=== PATIENT | female | born 1955 | race American Indian/Alaskan Native ===

== ENCOUNTER 2019-09-17 09:42 | Inpatient (IN) ==
[2019-09-17] MEDS ORDERED: IOPAMIDOL 100 ML BOTTLE IV ONE (09:43)
[2019-09-17] MEDS ORDERED: ONDANSETRON 4 MG/2 ML VIAL IV ONE (10:37)
--- NOTE | 2019-09-17 10:41 | Emergency Department Note ---
Abdominal Pain HPI - General Chief Complaint: Abdominal Pain Stated Complaint: abd pain x 5 weeks, h-pylori Time Seen by Provider: 09/17/19 09:57 Source: patient, family Mode of arrival: wheelchair Limitations: no limitations - History of Present Illness HPI Narrative: 63-year-old female with a 5-week history of lower quadrant abdominal pain worst on the right. She is on peritoneal dialysis daily by Dr. Black. She is having some nausea and diarrhea but no vomiting. Denies fever or shortness of breath. She is on antibiotics for H. pylori. She still has her appendix - Related Data Home Medications Medication Instructions Recorded Confirmed amlodipine 10 mg tablet 5 mg PO HS tab 09/30/14 09/17/19 citalopram 10 mg tablet 20 mg PO HS tab 09/30/14 09/17/19 cyanocobalamin (vitamin B-12) 2,500 mcg SUBLINGUAL QDAY tab 09/30/14 09/17/19 2,500 mcg sublingual tablet ferrous sulfate 325 mg (65 mg 325 mg PO BID 02/03/16 09/17/19 iron) tablet Amoxicillin 500 mg PO DAILY 09/08/19 09/17/19 Anastrozole [Arimidex] 1 mg PO DAILY 09/08/19 09/17/19 Cholecalciferol (Vitamin D3) [D3 2,000 unit PO DAILY 09/08/19 09/17/19 Dots] Clarithromycin 250 mg PO .COMPLEX 09/08/19 09/17/19 Docusate Sodium [Doc-Q-Lace] 100 mg PO BID 09/08/19 09/17/19 Magnesium Oxide 420 mg PO DAILY 09/08/19 09/17/19 [place]-3 Acid Ethyl Esters [Triklo] 2 cap PO BID 09/08/19 09/17/19 Sucroferric Oxyhydroxide [Velphoro] 500 mg PO DAILY 09/08/19 09/17/19 Vit B Cmplx 3/FA/Vit C/Biotin 1 each PO DAILY 09/08/19 09/17/19 [Nephro-Meme Rx Tablet] Aspirin [Ecotrin] 81 mg PO DAILY 09/17/19 09/17/19 Calcitriol [Rocaltrol] 0.25 mcg PO 3XW 09/17/19 09/17/19 Ergocalciferol (Vitamin D2) 50,000 unit PO Q2W 09/17/19 09/17/19 [Ergocalciferol] Protein Supplement [Prosource] 275 gm PO DAILY 09/17/19 09/17/19 Rosuvastatin Calcium [Crestor] 5 mg PO HS 09/17/19 09/17/19 glipiZIDE [Glipizide ER] 5 mg PO QDAY 09/17/19 09/17/19 Previous Rx's Medication Instructions Recorded PhosLo 667 mg capsule 667 mg PO .tid with meals #90 cap 03/23/16 NS HYDROcodone/APAP 5/325MG [[place] 1 tab PO Q4HP PRN #15 tab 11/08/16 5-325Mg] furosemide 40 mg tablet 80 mg PO QAM #60 tab 06/27/18 losartan 100 mg tablet 100 mg PO DAILY #30 tab 06/27/18 Allergies Allergy/AdvReac Type Severity Reaction Status Date / Time lisinopril AdvReac Mild Cough Verified 09/17/19 09:44 Review of Systems All systems ED: reviewed and negative except as stated. Abdominal Pain PMH - Past Medical History Attestation: Yes: The following information was validated with the patient. [facility] Narrative: Family History Father Alcohol abuse Diabetes mellitus Mother Alcohol abuse Osteoarthritis Grandmother Alcohol abuse Grandfather Diabetes mellitus Unknown Alcohol abuse Osteoarthritis Medical History (Last Updated 01/20/18 @ 09:17 by Linnette Castaneda) Chronic hypertension (Chronic) Diabetes mellitus (Chronic) Peritoneal dialysis catheter in situ (Chronic) Chronic kidney disease (Chronic) 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) Breast cancer (Chronic) Hyperparathyroidism due to renal insufficiency (Chronic) Anemia (Chronic) Chronic kidney disease (CKD), stage V (Chronic) Secondary hyperparathyroidism of renal origin (Chronic 06/13/13) Proteinuria (Acute) Peripheral neuropathy (Acute) Obesity (Acute) Heart murmur, systolic (Acute) Metabolic acidosis (Chronic) Hypertensive renal disease (Chronic 06/13/13) Hypertension, essential (Acute) Hyperlipemia (Acute) Hyperkalemia (Chronic 06/13/13) Heart murmur (Acute) Diabetes mellitus, type II (Chronic) 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) Degenerative joint disease (Acute) CKD (chronic kidney disease), stage IV (Chronic) CKD (chronic kidney disease), stage II (Acute) Carpal tunnel syndrome (Acute) Chronic back pain (Acute) Anemia, iron deficiency (Chronic 06/13/13) Anemia in chronic kidney disease (CKD) (Acute) Full dentures (Chronic) Past Surgical History (Last Updated 01/20/18 @ 09:15 by Linnette Castaneda) H/O colonoscopy (Acute 08/14/07) History of cholecystectomy (Acute) Status post left breast lumpectomy (Chronic) Medical history: Reports: DM, hyperlipidemia, hypertension, renal disease - Social History Smoking status: Former smoker Physical Exam No acute distress resting. Alert and oriented able to answer questions appropriately. Normocephalic atraumatic. Conjunctive are clear sclerae white nonicteric. No nasal discharge or congestion. Oropharynx is pink and moist. Neck is supple without lymphadenopathy thyromegaly carotid bruit. Heart is regular rate and rhythm no murmur appreciated. Lungs are clear to auscultation bilaterally without wheezes rales rhonchi or respiratory distress. Abdomen is s oft mildly tender in bilateral lower quadrants with point tenderness noted. Right seems to be worse than left. No peritoneal signs or guarding. She has a dialysis catheter in place in her left lower quadrant. No pedal edema. +2 pulse. Limitations: no limitations Course Vital Signs Temperature 97.0 F 09/17/19 09:42 Pulse Rate 75 09/17/19 09:42 Respiratory Rate 18 09/17/19 09:42 Blood Pressure 104/53 09/17/19 09:42 Pulse Oximetry (%) 97 09/17/19 09:42 Temperature 97.0 F 09/17/19 09:42 Pulse Rate 79 09/17/19 13:24 Respiratory Rate 13 09/17/19 13:24 Blood Pressure 104/55 09/17/19 13:16 Pulse Oximetry (%) 94 09/17/19 13:24 Abdominal Pain - Lab Data Lab results reviewed: Yes I reviewed the patient's lab results. Result diagrams: 09/17/19 10:15 09/17/19 10:15 Lab Results 09/17/19 09/17/19 09/17/19 Range/Units 10:15 10:15 10:15 WBC 10.1 (4.50-11.00) K/mcL RBC 2.73 L (3.59-5.38) M/mcL Hgb 8.5 L (11.2-15.7) g/dL Hct 26.1 L (34.1-44.9) % POC Hct (36.0-48.0) % MCV 95.6 (80.0-100.0) fL MCH 31.1 (26.0-34.0) pg MCHC 32.6 (31.0-36.0) g/dL RDW 12.7 (11.5-14.5) % Plt Count 293 (140-440) K/mcL MPV 10.5 H (7.4-10.4) fL Gran % 88.7 H (38.0-78.0) % Lymph % (Auto) 4.4 L (15.5-49.0) % [place] % (Auto) 5.4 (1.0-12.0) % Eos % (Auto) 1.3 (0.0-7.0) % Baso % (Auto) 0.2 (0.0-2.0) % Gran # 8.98 H (1.80-8.00) K/mcL Lymph # (Auto) 0.45 L (1.50-4.80) K/mcL [place] # (Auto) 0.55 (0.10-0.90) K/mcL Eos # (Auto) 0.13 (0.00-0.70) K/mcL Baso # (Auto) 0.02 (0.00-0.30) K/mcL VBG Lactic Acid 1.7 (0.5-2.0) mmol/L POC Sodium (133-145) mmol/L Sodium 131 L (133-145) mmol/L POC Potassium (3.3-5.1) mmol/L Potassium 3.9 (3.3-5.1) mmol/L POC Chloride (96-108) mmol/L Chloride 93 L (96-108) mmol/L Carbon Dioxide 28 (22-30) mmol/L POC Total CO2 (22-30) mmol/L Anion Gap 10.0 (8-16) POC BUN (8-23) mg/dl BUN 50 H (8-23) mg/dl Creatinine 7.4 H* (0.6-1.1) mg/dl POC Creatinine (0.6-1.1) mg/dl GFR Calculation 5 Glucose 189 H (70-105) mg/dL POC Glucose (70-105) mg/dL Calcium 7.6 L (8.6-10.4) mg/dl POC WB Ioniz Calcium (1.16-1.32) mmol/L Total Bilirubin 0.2 (0.0-1.0) mg/dL AST 12 (0-37) U/l ALT 11 (0-40) U/l Alkaline Phosphatase 128 H (39-117) U/L Total Protein 5.0 L (5.9-8.4) gm/dL Albumin 1.5 L (3.2-5.2) gm/dL Globulin 3.5 (2.2-3.7) gm/dL Albumin/Globulin Ratio 0.4 L (1.0-2.3) Lipase (7-60) U/L Urine Color Urine Appearance Urine pH (5.0-9.0) Ur Specific [place] (1.000-1.035) Urine Protein (NEG) mg/dL Urine Glucose (UA) (NEG) mg/dL Urine Ketones (NEG) mg/dL Urine Occult Blood (<0.03) mg/dL Urine Nitrate (NEG) Urine Bilirubin (NEG) mg/dL Urine Urobilinogen (NEG) mg/dL Ur Leukocyte Esterase (NEG) /uL Urine RBC (0-1) /hpf Urine WBC (0-4) /hpf Ur Squamous Epith Cells (0-4) /hpf Ur Transition Epith Cell (0-2) /hpf Urine Bacteria (0) /hpf Urine Mucus (0) /hpf Ur Culture Indicated? 09/17/19 09/17/19 Range/Units 10:15 10:42 WBC (4.50-11.00) K/mcL RBC (3.59-5.38) M/mcL Hgb (11.2-15.7) g/dL Hct (34.1-44.9) % POC Hct 27.0 L (36.0-48.0) % MCV (80.0-100.0) fL MCH (26.0-34.0) pg MCHC (31.0-36.0) g/dL RDW (11.5-14.5) % Plt Count (140-440) K/mcL MPV (7.4-10.4) fL Gran % (38.0-78.0) % Lymph % (Auto) (15.5-49.0) % [place] % (Auto) (1.0-12.0) % Eos % (Auto) (0.0-7.0) % Baso % (Auto) (0.0-2.0) % Gran # (1.80-8.00) K/mcL Lymph # (Auto) (1.50-4.80) K/mcL [place] # (Auto) (0.10-0.90) K/mcL Eos # (Auto) (0.00-0.70) K/mcL Baso # (Auto) (0.00-0.30) K/mcL VBG Lactic Acid (0.5-2.0) mmol/L POC Sodium 129 L (133-145) mmol/L Sodium (133-145) mmol/L POC Potassium 3.9 (3.3-5.1) mmol/L Potassium (3.3-5.1) mmol/L POC Chloride 91 L (96-108) mmol/L Chloride (96-108) mmol/L Carbon Dioxide (22-30) mmol/L POC Total CO2 30 (22-30) mmol/L Anion Gap (8-16) POC BUN 44 H (8-23) mg/dl BUN (8-23) mg/dl Creatinine (0.6-1.1) mg/dl POC Creatinine 8.2 H* (0.6-1.1) mg/dl GFR Calculation Glucose (70-105) mg/dL POC Glucose 178 H (70-105) mg/dL Calcium (8.6-10.4) mg/dl POC WB Ioniz Calcium 1.01 L (1.16-1.32) mmol/L Total Bilirubin (0.0-1.0) mg/dL AST (0-37) U/l ALT (0-40) U/l Alkaline Phosphatase (39-117) U/L Total Protein (5.9-8.4) gm/dL Albumin (3.2-5.2) gm/dL Globulin (2.2-3.7) gm/dL Albumin/Globulin Ratio (1.0-2.3) Lipase < 7 L (7-60) U/L Urine Color Yellow Urine Appearance Hazy Urine pH 5.0 (5.0-9.0) Ur Specific [place] 1.019 (1.000-1.035) Urine Protein 30 A (NEG) mg/dL Urine Glucose (UA) Negative (NEG) mg/dL Urine Ketones Neg (NEG) mg/dL Urine Occult Blood Neg (<0.03) mg/dL Urine Nitrate Neg (NEG) Urine Bilirubin Neg (NEG) mg/dL Urine Urobilinogen Neg (NEG) mg/dL Ur Leukocyte Esterase 25 A (NEG) /uL Urine RBC 1 (0-1) /hpf Urine WBC 6 H (0-4) /hpf Ur Squamous Epith Cells 5 H (0-4) /hpf Ur Transition Epith Cell 1 (0-2) /hpf Urine Bacteria 0 (0) /hpf Urine Mucus Few (0) /hpf Ur Culture Indicated? No - Radiology Data Radiology results reviewed: Yes I reviewed the patient's radiology results. Multiple chronic findings noted on CT scan of the abdomen and pelvis. No cause is identified for her belly pain Disposition Pt seen by [facility]URNER/PA only: No Clinical Impression: Peritonitis, Chronic kidney disease (CKD), stage V Summary: Ordered laboratory work-up and CT scan Zofran and Dilaudid. Differential diagnosis includes appendicitis diverticulitis bowel obstruction follow-up partial mass peritonitis and other concerning pathologies. Right now her blood pressure is low normal and she is not febrile-she does not meet Sirs or septic criteria at this point but we will monitor Briefly discussed with Dr. Black as well. She sent over her dialysis nurse to get a sample of peritoneal fluid for rule out peritonitis Peritoneal fluid appeared infected. Laboratory is equivocal. We will go ahead and start vancomycin and Zosyn IV. CT scan does not show evidence of surgical belly Discussed case with Dr. Black again. We will bring the patient in for parenteral antibiotics through the catheter. Discussed case also with our hospitalist, Dr. Capone. He agreed to accept the patient Disposition: Xfer As Inpt ([facility]) Condition: Fair Referrals: Berto Kearney ARNP [Primary Care Provider] -
[2019-09-17] MEDS: HYDROmorphone 0.5 MG/0.5 ML SYRINGE IV PRN ×2 (10:59→13:47)
[2019-09-17 11:05] LABS: POC Blood Urea Nitrogen 44 mg/dl (8-23); POC CO2 30 mmol/L (22-30); POC Calcium, Ionized 1.01 mmol/L (1.16-1.32); POC Chloride 91 mmol/L (96-108); POC Creatinine 8.2 mg/dl (0.6-1.1); POC Glucose, Random 178 mg/dL (70-105); POC Potassium 3.9 mmol/L (3.3-5.1); POC Sodium 129 mmol/L (133-145)
[2019-09-17 11:22] LABS: Basophils # (Auto) 0.02 K/mcL (0.00-0.30); Basophils % (Auto) 0.2 % (0.0-2.0); Eosinophils # (Auto) 0.13 K/mcL (0.00-0.70); Eosinophils % (Auto) 1.3 % (0.0-7.0); Granulocytes % (Auto) 88.7 % (38.0-78.0); Hematocrit 26.1 % (34.1-44.9); Hemoglobin 8.5 g/dL (11.2-15.7); Lymphocytes # (Auto) 0.45 K/mcL (1.50-4.80); Lymphocytes % (Auto) 4.4 % (15.5-49.0); Mean Cell Volume 95.6 fL (80.0-100.0); Mean Corpuscular HGB Conc 32.6 g/dL (31.0-36.0); Mean Platelet Volume 10.5 fL (7.4-10.4); Monocytes # (Auto) 0.55 K/mcL (0.10-0.90); Monocytes % (Auto) 5.4 % (1.0-12.0); Platelet Count 293 K/mcL (140-440); RBC 2.73 M/mcL (3.59-5.38); Red Cell Distribution Width 12.7 % (11.5-14.5); WBC 10.1 K/mcL (4.50-11.00)
[2019-09-17 11:46] LABS: ALT/SGPT 11 U/l (0-40); AST/SGOT 12 U/l (0-37); Alkaline Phosphatase 128 U/L (39-117); Bilirubin,Total 0.2 mg/dL (0.0-1.0); Calcium 7.6 mg/dl (8.6-10.4); Carbon Dioxide 28 mmol/L (22-30); Glucose 189 mg/dL (70-105)
[2019-09-17 11:54] LABS: Albumin 1.5 gm/dL (3.2-5.2); Albumin/Globulin Ratio 0.4 (1.0-2.3); Blood Urea Nitrogen 50 mg/dl (8-23); Chloride 93 mmol/L (96-108); Globulin 3.5 gm/dL (2.2-3.7); Glomerular Filtration Rate 5
[2019-09-17] MEDS ORDERED: VANCOMYCIN 1,000 MG in 0.9 % SODIUM CHLORIDE 250 ML IV ONE (12:06)
[2019-09-17] MEDS ORDERED: PIPERACILLIN SODIUM/TAZOBACTAM 3.375 GM in DEXTROSE 5% IN WATER 50 ML IV ONE (12:06)
[2019-09-17 12:22] LABS: Appearance,Urine HAZY; Bacteria,Urine 0 /hpf (0); Bilirubin,Urine NEG (NEG); Color,Urine YELLOW; Culture Indicated,Urine NO; Glucose,Urine (UA) NEGATIVE (NEG); Ketones,Urine NEG (NEG); Leukocyte Esterase,Urine 25 /uL (NEG); Mucus,Urine FEW /hpf (0); Nitrate,Urine NEG (NEG); Protein,Urine 30 mg/dL (NEG); Specific Gravity,Urine 1.019 (1.000-1.035); Urine Blood NEG mg/dL (<0.03); Urine RBC 1 /hpf (0-1); Urine Squamous Epithelial Cell 5 /hpf (0-4); Urine Transitional Epi Cells 1 /hpf (0-2); Urine WBC 6 /hpf (0-4); Urobilinogen,Urine NEG (NEG)
--- NOTE | 2019-09-17 13:04 | Cat Scan Report ---
INDICATION: lowere quadrant ab pain both side COMPARISON: Previous CT scans dated 08/28/2019, 11/08/2016 TECHNIQUE: Axial images were obtained through the abdomen and pelvis. Sagittally and coronally reformatted images. 80 mL Isovue 370 injected intravenously. Oral contrast material was given FINDINGS: Lung bases:No pulmonary parenchymal densities in both lung bases. Appearance is most consistent with atelectasis. No significant pleural effusion. There is cardiomegaly. There is severe coronary artery calcification. No pericardial effusion. Liver:Micronodular appearance to the liver suggests possible cirrhosis. Clinical correlation necessary. No focal hepatic mass. Gallbladder, bilary:Surgical clips in gallbladder fossa. Common bile duct measures 7 mm. No intrahepatic bile duct dilatation Spleen:Spleen measures 13 cm maximally. No focal intrasplenic abnormality. Normal enhancement of the splenic and portal veins Pancreas:Negative. No pancreatic mass. No peripancreatic abnormality Adrenal glands:Negative Kidneys, ureters, bladder: Kidneys are atrophic. Patient has history of renal failure and is on peritoneal dialysis. No solid or cystic renal mass. There is mild renal parenchymal enhancement. No hydronephrosis. There is no hydroureter. No ureteral stone No bladder calculi or detectable mass Gastrointestinal:No detectable colonic mass. There is no diverticulitis. Small bowel is negative. No mechanical small bowel obstruction. Appendix: The appendix is negative Vascular:Mild atherosclerotic calcification of the abdominal aorta. No abdominal aortic aneurysm. There is calcification of the internal iliac arteries bilaterally. There is calcification of the superior and inferior mesenteric arteries as well as the celiac trunk. Lymphatic:No retroperitoneal or mesenteric adenopathy Mesentery, peritoneum: Peritoneal dialysis catheter within the pelvis. There is moderate peritoneal fluid. There is minimal pneumoperitoneum. There is no intra-abdominal abscess. There is nonspecific infiltration of mesenteric fat. No mesenteric mass normality. Reproductive:Uterus is anteflexed and there is myometrial calcification. No adnexal mass Musculoskeletal:No lumbar compression fractures. Sacrum and pelvis are negative. No hip fracture. There is injection of the subcutaneous fat consistent with edema. No focal subcutaneous mass. Probable previous left breast lumpectomy IMPRESSION: 1. Bilateral lower lobe pulmonary parenchymal density consistent with atelectasis 2. Cardiomegaly and severe coronary artery disease 3. Bilateral renal atrophy 4. Hemodialysis catheter within the pelvis. Moderate free intraperitoneal fluid. Minimal pneumoperitoneum 5. Nonspecific injection of mesenteric fat is probably related to free fluid 6. Nonspecific subcutaneous edema 7. Findings suspicious for cirrhosis with a micronodular appearance of the liver. No focal mass 8. Previous cholecystectomy. Borderline dilatation of the common bile duct 9. Atherosclerotic disease The exam was performed using radiation dose optimization techniques including, but not limited to, automated exposure control, adjustment of the mA and/or kV according to patient size and use of iterative reconstruction technique. Interpreted and Authenticated by: Abdiel Sanchez 09/17/19
--- NOTE | 2019-09-17 14:24 | Internal Med History&Physical ---
Medical - H&P: [facility] Patient information: Note initiated : 09/17/19 at 2:22 pm Service Date, if different from initiated Date: [] Patient: Hedy Pizarro a 63 y/o F admitted on for abd pain x 5 weeks, h-pylori. Chief Complaint: [] Chief complaint: Abdominal pain History of present illness: Ms. Pizarro is a 63 year old F female with a past history of ESRD on peritoneal dialysis/DM type II/HTN who lives at [facility] and follows up with nephrology clinic at [facility]. Patient over the last 5 weeks has noticed persistent and progressive abdominal pain diffuse in nature without associated fever or chills. Pain is worsened during peritoneal dialysis. She presents to the ER for evaluation. Initial work-up was consistent with bacterial peritonitis. Nephrology was consulted and patient was requested to be admitted for management of peritonitis. Antibiotics were initiated after cultures were drawn Subsequently hospitalist service was consulted for admission At the time of my evaluation patient is alert and oriented. She was able to answer most of the questions. She denies shaking chills/sick contact/lightheadedness, dizziness. She further denies lower extremity swelling, nausea, vomiting, diarrhea. Review of systems A 10 point review of system was performed and is negative except for ones cussed above Medical - H&P: [facility] Medical history: Anemia in chronic kidney disease (CKD) (Acute) Her Hb is 10.7 which is above threshold for aranesp therapy Her Fe sat is low at 13% ct iron supplement pt does need colonoscopy, would request her PCP to do GI referral for insurance coverage will monitor CKD (chronic kidney disease), stage II (Acute) Carpal tunnel syndrome (Acute) Chronic back pain (Acute) Degenerative joint disease (Acute) Heart murmur (Acute) Heart murmur, systolic (Acute) Hyperlipemia (Acute) Hypertension, essential (Acute) Obesity (Acute) Peripheral neuropathy (Acute) proteinu Proteinuria (Acute) Has microalb/Cr ratio of ~ 1450 mg/g - hx of DMT2, HTN, obesity w/u negative for ESTEPHANIE, complements are wnl and serum/urine CARINA are negative is on losartan which has a renoprotective effect. monitor 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) Anemia (Chronic) Anemia, iron deficiency (Chronic 06/13/13) CKD (chronic kidney disease), stage IV (Chronic) Her sCr on most recent labs is 3.8 from 3.2 which equals to eGFR of 12.9 ml/min per MDRD equation. There is a ? of volume depletion , despite of increased water intake in the setting of yard work and high temps. Her risk factors include HTN, DMT2 which are well controlled at this time. Pt will monitor BPs, BSs. Pt will increase her fluid intake and have labs repeated in 10 days If renal function does not improve, pt will be referred for AVF placement. Chronic kidney disease (CKD), stage V (Chronic) most recent s..creatinine is 3.5 from 3.7 which equals to egfr of 13ml/min per MDRD equation, stable for now, BUN is upto 76, no uremic symptoms s.creatinine has trended up from 3.2 to 3.5 to 4.3-3.5-4.0-3.7-3.5 renal function fluctuating between 3.5-4.0 no uremic symptoms will try and get medicare, if this happens has a potential living donor for pre emptive transplant if not then she will need to get started on HD, not interested on home modality Will follow Diabetes mellitus, type II (Chronic) States BS very much controlled. Care deferred to PCP. ct current medications Hyperkalemia (Chronic 06/13/13) Hyperparathyroidism due to renal insufficiency (Chronic) Hypertensive renal disease (Chronic 06/13/13) BP at goal ct losartan and amlodipine and diuretics and hydralazine follow low sodium diet Metabolic acidosis (Chronic) Secondary hyperparathyroidism of renal origin (Chronic 06/13/13) PTH at 105 a little supressed, not on calcitriol Phos level at 4.6 near goal calcium at goal PTH was 123 when checked last mth ct phoslo and ergocalciferol Surgical History H/O colonoscopy (Acute 08/14/07) 08/14/07- Parent History of cholecystectomy (Acute) Family History Father Alcohol abuse Diabetes mellitus Mother Alcohol abuse Osteoarthritis Grandmother Alcohol abuse Grandfather Diabetes mellitus Unknown Alcohol abuse Uncle Osteoarthritis Uncle Social History smoking status: Former smoker alcohol intake frequency: does not drink Medical - H&P: Meds Home Medications Medication Instructions Recorded Confirmed Type amlodipine 10 mg tablet 5 mg PO HS tab 09/30/14 09/17/19 History citalopram 10 mg tablet 20 mg PO HS tab 09/30/14 09/17/19 History cyanocobalamin (vitamin B-12) 2,500 mcg SUBLINGUAL QDAY tab 09/30/14 09/17/19 History 2,500 mcg sublingual tablet ferrous sulfate 325 mg (65 mg 325 mg PO BID 02/03/16 09/17/19 History iron) tablet PhosLo 667 mg capsule 667 mg PO .tid with meals #90 cap 03/23/16 09/17/19 Rx NS HYDROcodone/APAP 5/325MG [[place] 1 tab PO Q4HP PRN #15 tab 11/08/16 09/17/19 Rx 5-325Mg] furosemide 40 mg tablet 80 mg PO QAM #60 tab 06/27/18 09/17/19 Rx losartan 100 mg tablet 100 mg PO DAILY #30 tab 06/27/18 09/17/19 Rx Amoxicillin 500 mg PO DAILY 09/08/19 09/17/19 History Anastrozole [Arimidex] 1 mg PO DAILY 09/08/19 09/17/19 History Cholecalciferol (Vitamin D3) [D3 2,000 unit PO DAILY 09/08/19 09/17/19 History Dots] Clarithromycin 250 mg PO .COMPLEX 09/08/19 09/17/19 History Docusate Sodium [Doc-Q-Lace] 100 mg PO BID 09/08/19 09/17/19 History Magnesium Oxide 420 mg PO DAILY 09/08/19 09/17/19 History [place]-3 Acid Ethyl Esters [Triklo] 2 cap PO BID 09/08/19 09/17/19 History Sucroferric Oxyhydroxide [Velphoro] 500 mg PO DAILY 09/08/19 09/17/19 History Vit B Cmplx 3/FA/Vit C/Biotin 1 each PO DAILY 09/08/19 09/17/19 History [Nephro-Meme Rx Tablet] Aspirin [Ecotrin] 81 mg PO DAILY 09/17/19 09/17/19 History Calcitriol [Rocaltrol] 0.25 mcg PO 3XW 09/17/19 09/17/19 History Ergocalciferol (Vitamin D2) 50,000 unit PO Q2W 09/17/19 09/17/19 History [Ergocalciferol] Protein Supplement [Prosource] 275 gm PO DAILY 09/17/19 09/17/19 History Rosuvastatin Calcium [Crestor] 5 mg PO HS 09/17/19 09/17/19 History glipiZIDE [Glipizide ER] 5 mg PO QDAY 09/17/19 09/17/19 History Allergies Allergy/AdvReac Type Severity Reaction Status Date / Time lisinopril AdvReac Mild Cough Verified 09/17/19 09:44 Medical - H&P: Exam - Constitutional Vitals: Temp Pulse Resp BP Pulse Ox 97.0 F 76 17 102/63 100 09/17/19 09:42 09/17/19 14:18 09/17/19 14:18 09/17/19 14:17 09/17/19 14:18 General appearance: obese Exam: Alert and oriented Head normocephalic Oral cavity dry No ear nose discharge Neck no lymphadenopathy S1-S2 regular rhythm Diffusely tender abdomen, PD catheter Nonlabored breathing No lower extremity lymphedema cyanosis or clubbing Skin no suspicious lesion Psych alert cooperative Neuro nonfocal Medical - H&P: Reslt - Labs CBC & Chem 7: 09/17/19 10:15 09/17/19 10:15 Labs: Short CBC 09/17/19 Range/Units 10:15 WBC 10.1 (4.50-11.00) K/mcL Hgb 8.5 L (11.2-15.7) g/dL Hct 26.1 L (34.1-44.9) % Plt Count 293 (140-440) K/mcL BMP 09/17/19 10:15 Sodium 131 L Potassium 3.9 Chloride 93 L Carbon Dioxide 28 BUN 50 H Creatinine 7.4 H* Glucose 189 H Calcium 7.6 L Liver Function 09/17/19 Range/Units 10:15 Total Bilirubin 0.2 (0.0-1.0) mg/dL AST 12 (0-37) U/l ALT 11 (0-40) U/l Alkaline Phosphatase 128 H (39-117) U/L Albumin 1.5 L (3.2-5.2) gm/dL Urine 09/17/19 Range/Units 10:42 Urine Color Yellow Urine Appearance Hazy Urine pH 5.0 (5.0-9.0) Ur Specific [place] 1.019 (1.000-1.035) Urine Protein 30 A (NEG) mg/dL Urine Glucose (UA) Negative (NEG) mg/dL Medical - H&P: A/P (1) Peritonitis Current visit: Yes Status: Acute * Acute peritonitis-likely secondary to peritoneal dialysis related contamination. Antibiotics per nephrology. * End-stage renal disease on dialysis per nephrology * History of HTN restart antihypertensives CCB/ARB * History of DM type II continue sliding-scale insulin/CC diet * Hyperlipidemia continue statin * Anxiety disorder continue citalopram * Anemia of chronic disease stable continue monitor * Full code * Prophylaxis heparin Plan * Intraperitoneal antibiotics * Inpatient admission * Nephrology consult * Pre-existing medical condition management as above * PT OT/nutrition support
[2019-09-17] MEDS ORDERED: MELATONIN 3 MG TABLET PO PRN (15:56)
[2019-09-17] MEDS ORDERED: HYDROcodone/APAP 5/325MG TABLET PO PRN (15:56)
[2019-09-17] MEDS ORDERED: ONDANSETRON 4 MG ODT TABLET SL PRN (15:56)
[2019-09-17] MEDS ORDERED: ONDANSETRON 4 MG/2 ML VIAL IV PRN (15:56)
[2019-09-17] MEDS ORDERED: DEXTROSE 31 GM ORAL.SUSP PO PRN (15:56)
[2019-09-17] MEDS ORDERED: guaiFENesin/CODEINE 10 ML UDC PO PRN (15:56)
[2019-09-17] MEDS ORDERED: POLYETHYLENE GLYCOL 3350 17 GM PACKET PO PRN (15:56)
[2019-09-17] MEDS ORDERED: CALCITRIOL 0.25 MCG CAPSULE PO SCH (15:56)
[2019-09-17] MEDS ORDERED: DEXTROSE 50% 50 ML VIAL IV PRN (15:56)
[2019-09-17] MEDS ORDERED: BISACODYL 10 MG SUPP.RECT PR PRN (15:56)
[2019-09-17] MEDS: INSULIN LISPRO 1 UNIT/0.01 ML UNIT SQ SCH ×2 (17:32→21:18)
[2019-09-17] MEDS: CALCIUM ACETATE 667 MG CAPSULE PO SCH (17:34)
--- NOTE | 2019-09-17 18:26 | Nephrology History & Physical ---
History of Present Illness Patient information: Note initiated : 09/17/19 at 6:25 pm Service Date, if different from initiated Date: [] Patient: Hedy Pizarro a 63 y/o F admitted on 09/17/19 for abd pain x 5 weeks, Chief Complaint: [Abdominal pain] Chief complaint: Abd discomfort and coco;ure to thrive in a NIPD patirent. HPI: Ms. Pizarro is a 63 year old Female with end-stage renal disease of unclear origin but probably hypertension or diabetes. She has been on peritoneal dialysis since 2017 and has never had an episode of peritonitis. She runs a chronically low albumin but in the past month he reports abd disconfort and pain with no leukocytosis, noted to have worsening nutritional labs, in particular an albumin now below 2, low grade fever with neg KUB and previously clear CAPD fluid. Now with increased pain, mild peritoneal signs called to PD clinic and admitted for putative peritonitis. There is no report of any breaking dialysis technique, nothing to suggest a perforated viscus, interestingly the patient cannot recall when exactly her peritoneal fluid became cloudy. After culture sample obtained, she received 1 gm Vanco and 3.375 gm Pip/Uri x [address] Abd/Pelvis: Lung bases:No pulmonary parenchymal densities in both lung bases. Appearance is most consistent with atelectasis. No significant pleural effusion. There is cardiomegaly. There is severe coronary artery calcification. No pericardial effusion. Liver:Micronodular appearance to the liver suggests possible cirrhosis. Clinical correlation necessary. No focal hepatic mass. Gallbladder, bilary:Surgical clips in gallbladder fossa. Common bile duct measures 7 mm. No intrahepatic bile duct dilatation Spleen:Spleen measures 13 cm maximally. No focal intrasplenic abnormality. Normal enhancement of the splenic and portal veins Pancreas:Negative. No pancreatic mass. No peripancreatic abnormality Adrenal glands:Negative Kidneys, ureters, bladder: Kidneys are atrophic. Patient has history of renal failure and is on peritoneal dialysis. No solid or cystic renal mass. There is mild renal parenchymal enhancement. No hydronephrosis. There is no hydroureter. No ureteral stone No bladder calculi or detectable mass Gastrointestinal:No detectable colonic mass. There is no diverticulitis. Small bowel is negative. No mechanical small bowel obstruction. Appendix: The appendix is negative Vascular:Mild atherosclerotic calcification of the abdominal aorta. No abdominal aortic aneurysm. There is calcification of the internal iliac arteries bilaterally. There is calcification of the superior and inferior mesenteric arteries as well as the celiac trunk. Lymphatic:No retroperitoneal or mesenteric adenopathy Mesentery, peritoneum: Peritoneal dialysis catheter within the pelvis. There is moderate peritoneal fluid. There is minimal pneumoperitoneum. There is no intra-abdominal abscess. There is nonspecific infiltration of mesenteric fat. No mesenteric mass normality. Reproductive:Uterus is anteflexed and there is myometrial calcification. No adnexal mass Musculoskeletal:No lumbar compression fractures. Sacrum and pelvis are negative. No hip fracture. There is injection of the subcutaneous fat consistent with edema. No focal subcutaneous mass. Probable previous left breast lumpectomy IMPRESSION: 1. Bilateral lower lobe pulmonary parenchymal density consistent with atelectasis 2. Cardiomegaly and severe coronary artery disease 3. Bilateral renal atrophy 4. Hemodialysis catheter within the pelvis. Moderate free intraperitoneal fluid. Minimal pneumoperitoneum 5. Nonspecific injection of mesenteric fat is probably related to free fluid 6. Nonspecific subcutaneous edema 7. Findings suspicious for cirrhosis with a micronodular appearance of the liver. No focal mass 8. Previous cholecystectomy. Borderline dilatation of the common bile duct 9. Atherosclerotic disease This patient has clinical and biochemical evidence of peritonitis and will be treated as culture-negative peritonitis for the time being as there is no bacteria seen on the initial Gram stain. Culture and sensitivity of the PD fluid is pending. There is no radiographic evidence of appendicitis, she is surgically absent gallbladder, but an interesting finding is a rather generously sized spleen and micronodular changes in her liver suggesting new or previously unrecognized hepatic cirrhosis. That said the differential diagnosis for peritonitis includes spontaneous bacterial peritonitis, peritoneal dialysis related peritonitis, and perhaps peptic ulcer disease with a posterior penetrating ulcer and peritonitis. The patient will need a liver spleen scan to look for colloid shift pad support to the idea of unrecognized or cryptogenic cirrhosis. This would nicely explain the dramatic drop in albumin as its not only a problem of increased peritoneal leak but also reduced production of albumin from ongoing cirrhosis that were the cause. Review of Systems Gastrointestinal: abdominal pain, dyspepsia, vomiting, other (Pain with PD exchanges as of late, Outflow > inflow) Past History Past medical history: Medical History (Last Updated 01/20/18 @ 09:17 by Linnette Castaneda) Chronic hypertension (Chronic) Diabetes mellitus (Chronic) Peritoneal dialysis catheter in situ (Chronic) Chronic kidney disease (Chronic) 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) Breast cancer (Chronic) Hyperparathyroidism due to renal insufficiency (Chronic) Anemia (Chronic) Chronic kidney disease (CKD), stage V (Chronic) Secondary hyperparathyroidism of renal origin (Chronic 06/13/13) Proteinuria (Acute) Peripheral neuropathy (Acute) Obesity (Acute) Heart murmur, systolic (Acute) Metabolic acidosis (Chronic) Hypertensive renal disease (Chronic 06/13/13) Hypertension, essential (Acute) Hyperlipemia (Acute) Hyperkalemia (Chronic 06/13/13) Heart murmur (Acute) Diabetes mellitus, type II (Chronic) 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) Degenerative joint disease (Acute) CKD (chronic kidney disease), stage IV (Chronic) CKD (chronic kidney disease), stage II (Acute) Carpal tunnel syndrome (Acute) Chronic back pain (Acute) Anemia, iron deficiency (Chronic 06/13/13) Anemia in chronic kidney disease (CKD) (Acute) Full dentures (Chronic) Past Surgical History (Last Updated 01/20/18 @ 09:15 by Linnette Castaneda) H/O colonoscopy (Acute 08/14/07) History of cholecystectomy (Acute) Status post left breast lumpectomy (Chronic) Medical history: Reports: DM, hyperlipidemia, hypertension, renal disease - Social History Smoking status: Former smoker Medications and Allergies Home Medications Medication Instructions Recorded Confirmed Type amlodipine 10 mg tablet 5 mg PO HS tab 09/30/14 09/17/19 History citalopram 10 mg tablet 20 mg PO HS tab 09/30/14 09/17/19 History cyanocobalamin (vitamin B-12) 2,500 mcg SUBLINGUAL QDAY tab 09/30/14 09/17/19 History 2,500 mcg sublingual tablet ferrous sulfate 325 mg (65 mg 325 mg PO 2-3XW 02/03/16 09/17/19 History iron) tablet PhosLo 667 mg capsule 667 mg PO .tid with meals #90 cap 03/23/16 09/17/19 Rx NS furosemide 40 mg tablet 80 mg PO QAM #60 tab 06/27/18 09/17/19 Rx losartan 100 mg tablet 100 mg PO DAILY #30 tab 06/27/18 09/17/19 Rx Amoxicillin 500 mg PO DAILY 09/08/19 09/17/19 History Anastrozole [Arimidex] 1 mg PO DAILY 09/08/19 09/17/19 History Cholecalciferol (Vitamin D3) [D3 2,000 unit PO DAILY 09/08/19 09/17/19 History Dots] Clarithromycin 250 mg PO .COMPLEX 09/08/19 09/17/19 History Docusate Sodium [Doc-Q-Lace] 100 mg PO BID 09/08/19 09/17/19 History Magnesium Oxide 420 mg PO DAILY 09/08/19 09/17/19 History Winter-3 Acid Ethyl Esters [Triklo] 2 cap PO BID 09/08/19 09/17/19 History Sucroferric Oxyhydroxide [Velphoro] 500 mg PO DAILY 09/08/19 09/17/19 History Vit B Cmplx 3/FA/Vit C/Biotin 1 each PO DAILY 09/08/19 09/17/19 History [Nephro-Meme Rx Tablet] Calcitriol [Rocaltrol] 0.25 mcg PO 3XW 09/17/19 09/17/19 History Ergocalciferol (Vitamin D2) 50,000 unit PO Q2W 09/17/19 09/17/19 History [Ergocalciferol] Protein Supplement [Prosource] 275 gm PO DAILY 09/17/19 09/17/19 History Rosuvastatin Calcium [Crestor] 5 mg PO HS 09/17/19 09/17/19 History glipiZIDE [Glipizide ER] 5 mg PO QDAY 09/17/19 09/17/19 History Allergies Allergy/AdvReac Type Severity Reaction Status Date / Time lisinopril AdvReac Mild Cough Verified 09/17/19 09:44 Exam - Vital Signs Vital signs: Temp Pulse Resp BP Pulse Ox 36.6 C 78 18 99/56 93 09/17/19 15:56 09/17/19 15:56 09/17/19 15:56 09/17/19 15:56 09/17/19 15:56 - General Appearance General appearance: well-nourished, appears started age, moderate distress, chronically ill EENT: ATNC, PERRL, mucous membranes moist Neck: no JVD, no thyromegaly, no carotid bruit, supple Respiratory: no kyphosis, clear Cardiology: mid-systolic murmur (2/6 CANDICE), no rub, no gallops, edema, regular rate, regular rhythm, normal S1, normal S2 Gastrointestinal: normoactive bowel sounds, tenderness, guarding (mild gaurding), obese, distended Integumentary: no rash, warm and dry Neurologic: no focal deficit, no asterixis, alert and oriented x3, CN 3-12 intact Musculoskeletal: no deformities, no erythema, no cyanosis, no clubbing Psychiatric: mood/affect appropriate Results - Lab Results 09/17/19 10:15 09/17/19 10:15 Most recent lab results Calcium 7.6 mg/dl (8.6-10.4) L 09/17/19 10:15 - Image Kidney/bladder ultrasound: other (CT done / see HPI) Assessment and Plan (1) Peritonitis This patient has clinical and biochemical evidence of peritonitis and will be treated as culture-negative peritonitis for the time being as there is no bacteria seen on the initial Gram stain. Culture and sensitivity of the PD fluid is pending. There is no radiographic evidence of appendicitis, she is surgically absent gallbladder, but an interesting finding is a rather generously sized spleen and micronodular changes in her liver suggesting new or previously unrecognized hepatic cirrhosis. That said the differential diagnosis for peritonitis includes spontaneous bacterial peritonitis, peritoneal dialysis related peritonitis, and perhaps peptic ulcer disease with a posterior penetrating ulcer and peritonitis. The patient will need a liver spleen scan to look for colloid shift pad support to the idea of unrecognized or cryptogenic cirrhosis. This would nicely explain the dramatic drop in albumin as its not only a problem of increased peritoneal leak but also reduced production of albumin from ongoing cirrhosis that were the cause. Status: Acute Priority: High Comment: 1. Serial peritoneal dialysis cell count and differential 2. Vancomycin and Pipracil and tazobactam pending culture return 3. Inflammatory biomarkers (2) ESRD (end stage renal disease) Peritoneal dialysis orders written Status: Acute Priority: Medium (3) Micronodular cirrhosis 1. Will need work-up including nuclear medicine liver spleen scan as an outpatient at [facility] 2. Serologies for nonalcohol related cirrhosis 3. Probably will require GI evaluation Status: Acute Priority: High Comment: Diagnosis based on CT findings
[2019-09-17] MEDS ORDERED: SODIUM CHLORIDE 0.9% IP ONE (19:00)
[2019-09-17] MEDS ORDERED: VANCOMYCIN IP ONE (19:00)
[2019-09-17] MEDS ORDERED: VANCOMYCIN IV ONE (20:27)
[2019-09-17] MEDS ORDERED: SODIUM CHLORIDE 0.9% IV ONE (20:27)
[2019-09-17] MEDS: HYDROCODONE/APAP 7.5/325MG TABLET PO PRN (20:40)
[2019-09-17] MEDS ORDERED: amLODIPine 10 MG TABLET PO SCH (21:00)
[2019-09-17] MEDS: FERROUS SULFATE 325 MG TABLET PO SCH (21:15)
[2019-09-17] MEDS: FISH OIL 1,000 MG CAPSULE PO SCH (21:15)
[2019-09-17] MEDS: CITALOPRAM 20 MG TABLET PO SCH (21:15)
[2019-09-17] MEDS: ATORVASTATIN 20 MG TABLET PO SCH (21:15)
[2019-09-17] MEDS: DOCUSATE SODIUM 100 MG CAPSULE PO SCH (21:15)
[2019-09-17] MEDS: SENNOSIDES/DOCUSATE SODIUM 1 TAB TABLET PO SCH (21:15)
[2019-09-17] MEDS: HEPARIN 5,000 UNIT/ML VIAL SQ SCH (21:17)
[2019-09-17] MEDS: 0.9 % SODIUM CHLORIDE 10 ML SYRINGE IV SCH (23:38)
[2019-09-18] MEDS: PIPERACILLIN SODIUM/TAZOBACTAM 2.25 GM in DEXTROSE 5% IN WATER 50 ML IV SCH ×3 (00:30→15:27)
[2019-09-18] MEDS: HYDROCODONE/APAP 7.5/325MG TABLET PO PRN ×4 (04:03→19:01)
[2019-09-18] MEDS: 0.9 % SODIUM CHLORIDE 10 ML SYRINGE IV SCH ×3 (05:43→21:15)
[2019-09-18 06:42] LABS: Hematocrit 26.5 % (34.1-44.9); Hemoglobin 8.4 g/dL (11.2-15.7); Mean Cell Volume 95.7 fL (80.0-100.0); Mean Corpuscular HGB Conc 31.7 g/dL (31.0-36.0); Mean Platelet Volume 10.5 fL (7.4-10.4); Platelet Count 326 K/mcL (140-440); RBC 2.77 M/mcL (3.59-5.38); Red Cell Distribution Width 12.8 % (11.5-14.5); WBC 12.2 K/mcL (4.50-11.00)
[2019-09-18] MEDS: ACETAMINOPHEN 325 MG TABLET PO PRN ×2 (06:43→23:13)
[2019-09-18 06:50] LABS: Retic Absolute 0.06 M/mcL (0.02-0.10)
[2019-09-18 06:52] LABS: INR 1.2 (0.9-1.1); Prothrombin Time 15.4 sec (11.9-14.5)
[2019-09-18 07:09] LABS: ALT/SGPT 12 U/l (0-40); AST/SGOT 17 U/l (0-37); Alkaline Phosphatase 143 U/L (39-117); Bilirubin,Direct < 0.2 mg/dL (0.0-0.3); Bilirubin,Total < 0.2 mg/dL (0.0-1.0); Blood Urea Nitrogen 46 mg/dl (8-23); Calcium 7.5 mg/dl (8.6-10.4); Carbon Dioxide 27 mmol/L (22-30); Glucose 296 mg/dL (70-105); Lactate Dehydrogenase 150 U/L (94-250); Phosphorous 4.5 mg/dL (2.7-4.5); Triglycerides 106 mg/dl (<150); Uric Acid 5.6 mg/dL (2.5-8.0)
[2019-09-18 07:11] LABS: Prealbumin 5.4 mg/dl (20-40)
[2019-09-18 07:18] LABS: Vancomycin,Random 13.2 ug/mL
[2019-09-18 07:20] LABS: C-Reactive Protein 33.3 mg/dl (0.0-0.8)
[2019-09-18 07:21] LABS: Ferritin 808.6 ng/ml (30-400)
[2019-09-18 07:40] LABS: Albumin 1.5 gm/dL (3.2-5.2); Albumin/Globulin Ratio 0.4 (1.0-2.3); Chloride 86 mmol/L (96-108); Globulin 3.5 gm/dL (2.2-3.7); Glomerular Filtration Rate 5
[2019-09-18 08:45] LABS: Band Neutrophils % 1 % (0-10); Eosinophils % (Manual) 1 % (0-7); Hypochromasia FEW (NONE SEEN); Lymphocytes % 3 % (15-49); Monocytes % (Manual) 4 % (1-12); Platelet Estimate NORMAL (NORMAL); RBC Morphology ABNORM (NORMAL); Segmented Neutrophils % 91 % (38-78)
[2019-09-18] MEDS: INSULIN LISPRO 1 UNIT/0.01 ML UNIT SQ SCH ×4 (08:45→21:14)
[2019-09-18] MEDS: VITAMIN D3 1,000 UNIT TABLET PO SCH (08:49)
[2019-09-18] MEDS: CALCIUM ACETATE 667 MG CAPSULE PO SCH ×3 (08:49→17:27)
[2019-09-18] MEDS: ASPIRIN 81 MG TAB.CHEW PO SCH (08:51)
[2019-09-18] MEDS: DOCUSATE SODIUM 100 MG CAPSULE PO SCH ×2 (08:51→21:14)
[2019-09-18] MEDS: FERROUS SULFATE 325 MG TABLET PO SCH ×2 (08:52→21:14)
[2019-09-18] MEDS: MULTIVIT,THER IRON,CA,FA & MIN 1 TABLET PO SCH (08:52)
[2019-09-18] MEDS: FISH OIL 1,000 MG CAPSULE PO SCH (08:52)
[2019-09-18] MEDS: VITAMIN B COMPLEX 1 CAPSULE PO SCH (08:52)
[2019-09-18] MEDS: MAGNESIUM OXIDE 400 MG TABLET PO SCH (08:53)
[2019-09-18 08:54] LABS: Erythrocyte Sedimentation Rate > 120 mm/hr (0-20)
[2019-09-18] MEDS: HEPARIN 5,000 UNIT/ML VIAL SQ SCH ×2 (08:55→21:14)
[2019-09-18] MEDS ORDERED: FUROSEMIDE 40 MG TABLET PO SCH (09:00)
[2019-09-18] MEDS ORDERED: CYANOCOBALAMIN 2500 MCG SUBLINGUAL SCH (09:00)
[2019-09-18] MEDS ORDERED: LOSARTAN 50 MG TABLET PO SCH (09:00)
--- NOTE | 2019-09-18 10:00 | Internal Med Progress Note ---
Medical - PN: Subj Patient information: Note initiated : 09/18/19 at 9:58 am Service Date, if different from initiated Date: [] Patient: Hedy Pizarro a 63 y/o F admitted on 09/17/19 for abd pain x 5 weeks, h-pylori. Chief Complaint: [] Interval history: Ms. Pizarro is a 63 year old F female with a past history of ESRD on peritoneal dialysis/DM type II/HTN who lives at [facility] and follows up with nephrology clinic at [facility]. Patient over the last 5 weeks has noticed persistent and progressive abdominal pain diffuse in nature without associated fever or chills. Pain is worsened during peritoneal dialysis. She presents to the ER for evaluation. Initial work-up was consistent with bacterial peritonitis. Nephrology was consulted and patient was requested to be admitted for management of peritonitis. Antibiotics were initiated after cultures were drawn Subsequently hospitalist service was consulted for admission At the time of my evaluation patient is alert and oriented. She was able to answer most of the questions. She denies shaking chills/sick contact/lighthea dedness, dizziness. She further denies lower extremity swelling, nausea, vomiting, diarrhea. 09/17-patient doing a lot better. Denies fever chills. Minimal abdominal pain at the catheter site. On intraperitoneal antibiotics per nephrology. White count 12.2. Sodium 126. No additional concerns per nursing staff - Constitutional Vitals: Vital Signs Temp Pulse Resp BP Pulse Ox 96.8 F L 72 18 92/49 96 09/18/19 08:00 09/18/19 08:00 09/18/19 08:00 09/18/19 08:00 09/18/19 08:00 Period Temp Pulse Resp BP Sys/Loaiza Pulse Ox Last 24 Hr 96.8 F-98.2 F 66-85 11-29 91-139/43-69 88-100 Intake and Output 09/17/19 09/18/19 09/18/19 21:59 05:59 13:59 Intake Total 250 350 Balance 250 350 Weight 188 lb 9.6 oz Intake & Output: Intake & Output 09/17/19 09/18/19 09/18/19 21:59 05:59 13:59 Intake Total 250 350 Balance 250 350 Weight 188 lb 9.6 oz Intake: IV 250 50 Zosyn 2.25 gm In Dextrose 5% in 50 Water 50 ml @ 100 mls/hr IV Q8H [facility] Rx#:[id number] Vancomycin 1,000 mg In Sodium 250 Chloride 0.9% 250 ml @ 250 mls/ hr IV ONCE ONE Rx#:[id number] Oral 300 Other: Meal Dinner Percent of Meal Consumed 75% Feeding Ability Independent # Voids 1 1 General appearance: no acute distress Exam: Alert oriented Nonlabored breathing Minimally tender abdomen No anxiety Medical - PN: Obj Da - Labs CBC & Chem 7: 09/18/19 05:20 09/18/19 05:20 Labs: Abnormal Lab Results 09/18/19 09/18/19 09/18/19 05:20 05:20 05:20 WBC RBC Hgb Hct POC Hct MPV Gran % Lymph % (Auto) Gran # Lymph # (Auto) Seg Neutrophils % Lymphocytes % RBC Morphology Hypochromasia ESR > 120 H Percent Retic 2.04 H PT 15.4 H INR 1.2 H APTT 43 H POC Sodium Sodium POC Chloride Chloride POC BUN BUN Creatinine POC Creatinine Glucose POC Glucose Calcium POC WB Ioniz Calcium Magnesium Iron 22 L TIBC 103 L Unsat Iron Binding 81 L Ferritin 808.6 H GGT Alkaline Phosphatase C-Reactive Protein 33.3 H Total Protein Albumin Albumin/Globulin Ratio Prealbumin 5.4 L Lipase Urine Protein Ur Leukocyte Esterase Urine WBC Ur Squamous Epith Cells 09/18/19 09/18/19 09/17/19 05:20 05:20 10:42 WBC 12.2 H RBC 2.77 L Hgb 8.4 L Hct 26.5 L POC Hct MPV 10.5 H Gran % Lymph % (Auto) Gran # Lymph # (Auto) Seg Neutrophils % 91 H Lymphocytes % 3 L RBC Morphology Abnorm A Hypochromasia Few A ESR Percent Retic PT INR APTT POC Sodium Sodium 126 L POC Chloride Chloride 86 L POC BUN BUN 46 H Creatinine 7.2 H* POC Creatinine Glucose 296 H POC Glucose Calcium 7.5 L POC WB Ioniz Calcium Magnesium 1.4 L Iron TIBC Unsat Iron Binding Ferritin GGT 42 H Alkaline Phosphatase 143 H C-Reactive Protein Total Protein 5.0 L Albumin 1.5 L Albumin/Globulin Ratio 0.4 L Prealbumin Lipase Urine Protein 30 A Ur Leukocyte Esterase 25 A Urine WBC 6 H Ur Squamous Epith Cells 5 H 09/17/19 09/17/1920 10:15 10:15 10:15 WBC RBC 2.73 L Hgb 8.5 L Hct 26.1 L POC Hct 27.0 L MPV 10.5 H Gran % 88.7 H Lymph % (Auto) 4.4 L Gran # 8.98 H Lymph # (Auto) 0.45 L Seg Neutrophils % Lymphocytes % RBC Morphology Hypochromasia ESR Percent Retic PT INR APTT POC Sodium 129 L Sodium 131 L POC Chloride 91 L Chloride 93 L POC BUN 44 H BUN 50 H Creatinine 7.4 H* POC Creatinine 8.2 H* Glucose 189 H POC Glucose 178 H Calcium 7.6 L POC WB Ioniz Calcium 1.01 L Magnesium Iron TIBC Unsat Iron Binding Ferritin GGT Alkaline Phosphatase 128 H C-Reactive Protein Total Protein 5.0 L Albumin 1.5 L Albumin/Globulin Ratio 0.4 L Prealbumin Lipase < 7 L Urine Protein Ur Leukocyte Esterase Urine WBC Ur Squamous Epith Cells Meds: Medications Acetaminophen (Tylenol) 650 mg PO Q4-6HP PRN; Protocol PRN Reason: Per Pain Protocol/Fever > 101 Last Admin: 09/18/19 06:43 Dose: 650 mg Documented by: Hydrocodone Bitart/Acetaminophen ([place] 7.5/325mg) 1 tab PO Q4-6HP PRN; Protocol PRN Reason: Per Pain Protocol Last Admin: 09/18/19 08:47 Dose: 1 tab Documented by: Amlodipine Besylate (Norvasc) 5 mg PO [facility] Last Admin: 09/17/19 21:18 Dose: Not Given Documented by: Aspirin (Aspirin) 81 mg PO DAILY [facility] Last Admin: 09/18/19 08:51 Dose: 81 mg Documented by: Atorvastatin Calcium (Lipitor) 10 mg PO [facility] Last Admin: 09/17/19 21:15 Dose: 10 mg Documented by: Bisacodyl (Dulcolax) 10 mg OR Q2-3DAYS PRN PRN Reason: Constipation Calcitriol (Rocaltrol) 0.25 mcg PO 3XW [facility] Calcium Acetate (Phoslo) 667 mg PO TIDCC [facility] Last Admin: 09/18/19 08:49 Dose: 667 mg Documented by: Citalopram Hydrobromide (Celexa) 20 mg PO [facility] Last Admin: 09/17/19 21:15 Dose: 20 mg Documented by: Dextrose (Dextrose 50%) 0 ml IV UD PRN PRN Reason: Hypoglycemia Diagnostic Test (Pha) (Accu-Chek) 1 each FS ACHS [facility] Last Admin: 09/18/19 06:45 Dose: 1 each Documented by: Docusate Sodium (Colace) 100 mg PO BID [facility] Last Admin: 09/18/19 08:51 Dose: 100 mg Documented by: Ergocalciferol (Drisdol) 50,000 unit PO Q2W [facility] Ferrous Sulfate (Ferrous Sulfate) 325 mg PO BID [facility] Last Admin: 09/18/19 08:52 Dose: 325 mg Documented by: Fish Oil (Fish Oil) 1,000 mg PO BID [facility] Last Admin: 09/18/19 08:52 Dose: 1,000 mg Documented by: Furosemide (Lasix) 80 mg PO QAM [facility] Last Admin: 09/18/19 08:50 Dose: 80 mg Documented by: Glucose (Insta-Glucose) 15 gm PO PRN PRN PRN Reason: Hypoglycemia Guaifenesin/Codeine Phosphate (Robitussin Ac) 10 ml PO Q4HP PRN PRN Reason: Cough Heparin Sodium (Porcine) (Heparin) 5,000 unit SQ Q12 [facility] Last Admin: 09/18/19 08:55 Dose: 5,000 unit Documented by: Hydromorphone HCl (Dilaudid) 0 mg IV Q4HP PRN; Protocol PRN Reason: Per Pain Protocol Piperacillin Sod/Tazobactam (Sod 2.25 gm/ Dextrose) 50 mls @ 100 mls/hr IV Q8H [facility]; Protocol Last Admin: 09/18/19 08:30 Dose: 100 mls/hr Documented by: Vancomycin HCl 240 mg/ Sodium (Chloride) 100 mls @ 5 mls/hr IV ONCE ONE; Protocol Stop: 09/18/19 16:26 Last Admin: 09/17/19 21:18 Dose: 5 mls/hr Documented by: Insulin Human Lispro (Humalog) 0 unit SQ ACHS [facility]; Protocol Last Admin: 09/18/19 08:45 Dose: 4 units Documented by: Iron Carb/Multivit/Hospital Food Service Worker/Folic Acid (Multivitamin W/Minerals) 1 tab PO DAILY [facility] Last Admin: 09/18/19 08:52 Dose: 1 tab Documented by: Losartan Potassium (Cozaar) 100 mg PO DAILY [facility] Magnesium Oxide (Magnesium Oxide) 400 mg PO DAILY [facility] Last Admin: 09/18/19 08:53 Dose: 400 mg Documented by: Melatonin (Melatonin 3mg Tablet) 3 mg PO HSP PRN PRN Reason: Insomnia Ondansetron HCl (Zofran Odt) 4 mg SL Q4-6HP PRN; Protocol PRN Reason: Nausea And Vomiting Ondansetron HCl (Zofran) 4 mg IV Q4-6HP PRN; Protocol PRN Reason: Nausea And Vomiting Anastrozole [ (Arimidex] 1 Mg) 1 dose PO DAILY [facility] Sucroferric Oxyhydroxide [ Velphoro] 500 Mg 1 dose PO DAILY [facility] Polyethylene Glycol (Miralax) 17 gm PO DAILYP PRN PRN Reason: Constipation Senna/Docusate Sodium (Senna Plus Tablet) 1 tab PO HS [facility] Last Admin: 09/17/19 21:15 Dose: 1 tab Documented by: Sodium Chloride (Saline Flush) 10 ml IV Q8 [facility] Last Admin: 09/18/19 05:43 Dose: 10 ml Documented by: Vitamin B Complex (Vitamin B Complex) 1 cap PO DAILY [facility] Last Admin: 09/18/19 08:52 Dose: 1 cap Documented by: Vitamin D (Vitamin D3) 2,000 unit PO DAILY [facility] Last Admin: 09/18/19 08:49 Dose: 2,000 unit Documented by: Medical - PN: A/P - Time Spent With Patient Total time spent is greater than 50% in coordination of care (as documented) at patient's floor/unit and/or counseling patient: 25 - 35 minutes (1) Peritonitis Problem details: 1. Serial peritoneal dialysis cell count and differential 2. Vancomycin and Pipracil and tazobactam pending culture return 3. Inflammatory biomarkers Status: Acute Assessment and plan: * Acute peritonitis- management ongoing per nephrology * End-stage renal disease on peritoneal dialysis per nephrology * History of HTN restart antihypertensives CCB/ARB * History of DM type II continue sliding-scale insulin/CC diet * Hyperlipidemia continue statin * Anxiety disorder continue citalopram * Anemia of chronic disease stable continue monitor * Full code * Prophylaxis heparin Plan * Intraperitoneal antibiotics per nephrology * Continue Pre-existing medical condition management as above * PT OT/nutrition support * Discharge planning per case management Current Visit: Yes Medical - PN: Qual - VTE Deep Vein Thrombosis/Pulmonary Embolism Present on Admission: No
[2019-09-18] MEDS: Sucroferric Oxyhydroxide [Velphoro] 500 MG PO SCH (13:27)
[2019-09-18] MEDS: Anastrozole [Arimidex] 1 MG PO SCH (13:28)
[2019-09-18] MEDS: HYDROmorphone 0.5 MG/0.5 ML SYRINGE IV PRN ×2 (15:26→22:58)
--- NOTE | 2019-09-18 15:58 | Nephrology Progress Note ---
Subjective Patient information: Note initiated : 09/18/19 at 3:49 pm Service Date, if different from initiated Date: [] Patient: Hedy Pizarro 63 y/o F admitted on 09/17/19 for abd pain x 5 weeks, h-pylori. Chief Complaint: [] Principal diagnosis: Peritonitis Interval history: This patient presented with progressive abdominal pain culminating in low-grade fever and increased discomfort when doing her exchanges in particular the drainage phase was found to have peritoneal fluid and was admitted for treatment of presumed peritonitis. In my mind, this is either peritonitis related to peritoneal dialysis, or worse SBP in the setting of unrecognized cirrhosis given her micronodular appearance seen on recent CT. To date, there is ample evidence of a excess of neutrophils in her peritoneal fluid and her clinical exam was consistent with mild peritonitis. Gram stain fungal stain and cultures have been unrevealing. She is on gram-positive gram- negative and anaerobic coverage with vancomycin intraperitoneally and IV Pipracil and tazobactam every 8 hours adjusted for her renal insufficiency/end- stage renal disease. She is also developed marked hypoalbuminemia and worsening anemia of end-stage renal disease on SASHA replacement therapy as well as acute blood loss to lab for diagnostic studies done here. Her ammonia is not elevated, but there is an increase in her INR as well as her liver function tests and her meld score is calculated at XXX, but this is largely driven by the end-stage renal disease and elevated creatinine. Pertinent ROS: Alteration in mental status is marked change for this patient according to the peritoneal dialysis nurse Additional PMFSH (Level 3 Only): N/A Objective - Vital Signs Vital signs: Vital Signs Temp Pulse Resp BP BP Pulse Ox 09/18/19 12:00 36.4 C 66 18 90/59 95 09/18/19 08:00 36.0 C L 72 18 92/49 96 09/18/19 07:20 36.7 C 107/61 09/18/19 03:58 36.8 C 85 24 H 139/69 94 09/18/19 00:18 36.7 C 80 20 109/66 96 09/17/19 21:22 36.7 C 107/61 09/17/19 19:03 36.7 C 85 20 107/61 94 09/17/19 15:56 36.6 C 78 18 99/56 93 Intake and Output 09/18/19 09/18/19 09/18/19 05:59 13:59 21:59 Intake Total 350 290 Output Total 100 Balance 350 190 Intake: IV 50 50 Zosyn 2.25 gm In Dextrose 5% in 50 50 Water 50 ml @ 100 mls/hr IV Q8H [facility] Rx#:[id number] Oral 300 240 Output: Void Amount 100 Other: Meal Lunch Percent of Meal Consumed 75% Feeding Ability Assist with Tray Set Up Urine Color Dark Yellow Urine Odor Normal # Voids 1 Weight 85.548 kg Patient Weight 09/19/19 05:59 Weight 85.548 kg Intake & Output: Intake & Output 09/18/19 09/18/19 09/18/19 05:59 13:59 21:59 Intake Total 350 290 Output Total 100 Balance 350 190 Weight 85.548 kg Intake: IV 50 50 Zosyn 2.25 gm In Dextrose 5% in 50 50 Water 50 ml @ 100 mls/hr IV Q8H [facility] Rx#:[id number] Oral 300 240 Output: Void Amount 100 Other: Meal Lunch Percent of Meal Consumed 75% Feeding Ability Assist with Tray Set Up Urine Color Dark Yellow Urine Odor Normal # Voids 1 - General Appearance General appearance: appears started age, chronically ill (More alert5, up in a chair) EENT: ATNC, PERRL, mucous membranes dry Neck: no JVD, no carotid bruit, supple Respiratory: kyphosis, clear Cardiology: holosystolic murmur, no rub, no gallops, edema (and anasarca), normal S1, normal S2 (2/6 CANDICE) Gastrointestinal: normoactive bowel sounds, tenderness, no guarding (improved exam, less tender. PD catheter tract benign), obese Integumentary: no rash Neurologic: no focal deficit, no asterixis, alert and oriented x3, CN 3-12 intact Musculoskeletal: no deformities, no erythema, no clubbing Psychiatric: mood/affect appropriate, cooperative - Lab 09/18/19 05:20 09/18/19 05:20 Most recent lab results Calcium 7.5 mg/dl (8.6-10.4) L 09/18/19 05:20 Phosphorus 4.5 mg/dL (2.7-4.5) 09/18/19 05:20 Magnesium 1.4 mg/dL (1.6-2.5) L 09/18/19 05:20 Assessment and Plan (1) Peritonitis 1. Serial Cell count and diff 2. Continue vanco and pip/javier pending culture results 3. If neg at 72 hrs...I'd treat with po Cipro for SBP Status: Acute Priority: High Comment: 1. Serial peritoneal dialysis cell count and differential 2. Vancomycin and Pipracil and tazobactam pending culture return 3. Inflammatory biomarkers (2) ESRD (end stage renal disease) 1. All 4.25 PD fluid 2. Hold BP Rx 3. PD fluid studies (cytology, cell count and diff, Chemistries ordered) Status: Acute Priority: Medium Comment: Low albumin and volume overload (total body anasarca) may require conversion to HD. Stop BP Rx and try to increase U/F with 4.25% PD fluid (3) Micronodular cirrhosis 1. MELD score is high due to SCr which is ESRD not HRS 2. Will see about SAG but not sure how to interpret with PD 3. Serologies for auto-immune, Copper/cereloplasma, ferritin only elevated due to acute inflammation (acute phase reactant), Alpha-1-AT and cytology due to hx of breast CA. 4. May require liver biopsy and or liver/spleen scan to look for "colloid shift" as an outpatient. 5. Dopple of liver to R/O portal vein thrombosis 6. Hepatitis serologies Status: Acute Priority: High Comment: Diagnosis based on CT findings (4) Anemia in ESRD (end-stage renal disease) 1. Iron store ok 2. Blood loss to lab on top of ESRD 3. Start increased Aranesp 100 ug q week Status: Chronic Priority: Medium (5) Hyperparathyroidism due to renal insufficiency 1. Check PTHi 2. Alcitriol +/- sensipar based on Ca, PO4, PTHi levels Status: Chronic Priority: Medium
[2019-09-18] MEDS ORDERED: VANCOMYCIN 500 MG VIAL IP SCH (17:00)
[2019-09-18] MEDS ORDERED: DARBEPOETIN ALFA IV SCH (17:00)
[2019-09-18] MEDS ORDERED: VANCOMYCIN IP ONE (20:00)
[2019-09-18] MEDS ORDERED: SODIUM CHLORIDE 0.9% IP ONE (20:00)
[2019-09-18] MEDS: ATORVASTATIN 20 MG TABLET PO SCH (21:13)
[2019-09-18] MEDS: SENNOSIDES/DOCUSATE SODIUM 1 TAB TABLET PO SCH (21:14)
[2019-09-18] MEDS: CITALOPRAM 20 MG TABLET PO SCH (21:14)
[2019-09-19] MEDS: PIPERACILLIN SODIUM/TAZOBACTAM 2.25 GM in DEXTROSE 5% IN WATER 50 ML IV SCH ×3 (00:30→15:30)
[2019-09-19] MEDS: HYDROCODONE/APAP 7.5/325MG TABLET PO PRN ×3 (01:07→15:31)
[2019-09-19] MEDS: 0.9 % SODIUM CHLORIDE 10 ML SYRINGE IV SCH ×3 (05:57→20:35)
[2019-09-19 07:04] LABS: Hemoglobin 8.8 g/dL (11.2-15.7); Mean Cell Volume 97.9 fL (80.0-100.0); Mean Corpuscular HGB Conc 31.4 g/dL (31.0-36.0); Mean Platelet Volume 10.3 fL (7.4-10.4); Platelet Count 348 K/mcL (140-440); RBC 2.86 M/mcL (3.59-5.38); Red Cell Distribution Width 12.9 % (11.5-14.5); WBC 11.3 K/mcL (4.50-11.00)
[2019-09-19] MEDS: INSULIN LISPRO 1 UNIT/0.01 ML UNIT SQ SCH ×4 (07:27→20:34)
[2019-09-19] MEDS: CALCIUM ACETATE 667 MG CAPSULE PO SCH ×3 (07:29→17:16)
[2019-09-19 07:45] LABS: ALT/SGPT 16 U/l (0-40); AST/SGOT 20 U/l (0-37); Alkaline Phosphatase 181 U/L (39-117); Bilirubin,Direct < 0.2 mg/dL (0.0-0.3); Bilirubin,Total < 0.2 mg/dL (0.0-1.0); Blood Urea Nitrogen 47 mg/dl (8-23); Calcium 7.6 mg/dl (8.6-10.4); Carbon Dioxide 24 mmol/L (22-30); Glucose 385 mg/dL (70-105); Lactate Dehydrogenase 199 U/L (94-250); Phosphorous 4.8 mg/dL (2.7-4.5); Triglycerides 108 mg/dl (<150); Uric Acid 5.9 mg/dL (2.5-8.0)
[2019-09-19 07:51] LABS: Vancomycin,Random 12.5 ug/mL
[2019-09-19 07:56] LABS: Albumin 1.5 gm/dL (3.2-5.2); Albumin/Globulin Ratio 0.4 (1.0-2.3); Chloride 90 mmol/L (96-108); Globulin 3.9 gm/dL (2.2-3.7); Glomerular Filtration Rate 5
[2019-09-19 08:40] LABS: Hypochromasia FEW (NONE SEEN); Lymphocytes % 3 % (15-49); Monocytes % (Manual) 3 % (1-12); Myelocytes % 1 % (0-0); Platelet Estimate NORMAL (NORMAL); RBC Morphology ABNORM (NORMAL); Segmented Neutrophils % 93 % (38-78)
[2019-09-19] MEDS: DOCUSATE SODIUM 100 MG CAPSULE PO SCH ×2 (08:47→20:32)
[2019-09-19] MEDS: VITAMIN D3 1,000 UNIT TABLET PO SCH (08:48)
[2019-09-19] MEDS: Anastrozole [Arimidex] 1 MG PO SCH (08:48)
[2019-09-19] MEDS: MAGNESIUM OXIDE 400 MG TABLET PO SCH (08:49)
[2019-09-19] MEDS: ASPIRIN 81 MG TAB.CHEW PO SCH (08:49)
[2019-09-19] MEDS: MULTIVIT,THER IRON,CA,FA & MIN 1 TABLET PO SCH (08:49)
[2019-09-19] MEDS: VITAMIN B COMPLEX 1 CAPSULE PO SCH (08:50)
[2019-09-19] MEDS: FERROUS SULFATE 325 MG TABLET PO SCH (08:50)
[2019-09-19] MEDS: HEPARIN 5,000 UNIT/ML VIAL SQ SCH ×2 (08:51→20:34)
--- NOTE | 2019-09-19 10:14 | Internal Med Progress Note ---
Medical - PN: Subj Patient information: Note initiated : 09/19/19 at 10:11 am Service Date, if different from initiated Date: [] Patient: Hedy Pizarro a 63 y/o F admitted on 09/17/19 for abd pain x 5 weeks, h-pylori. Chief Complaint: [] Interval history: Ms. Pizarro is a 63 year old F female with a past history of ESRD on peritoneal dialysis/DM type II/HTN who lives at [facility] and follows up with nephrology clinic at [facility]. Patient over the last 5 weeks has noticed persistent and progressive abdominal pain diffuse in nature without associated fever or chills. Pain is worsened during peritoneal dialysis. She presents to the ER for evaluation. Initial work-up was consistent with bacterial peritonitis. Nephrology was consulted and patient was requested to be admitted for management of peritonitis. Antibiotics were initiated after cultures were drawn Subsequently hospitalist service was consulted for admission At the time of my evaluation patient is alert and oriented. She was able to answer most of the questions. She denies shaking chills/sick contact/lighthe adedness, dizziness. She further denies lower extremity swelling, nausea, vomiting, diarrhea. 09/17-patient doing a lot better. Denies fever chills. Minimal abdominal pain at the catheter site. On intraperitoneal antibiotics per nephrology. White count 12.2. Sodium 126. No additional concerns per nursing staff 09/18-patient doing well. No overnight events. No concerns per staff. No fever chills. Complains of abdominal pain at the catheter insertion site. Denies diarrhea, appetite normal. In good spirits. Continuing a intraperitoneal antibiotic infusion per nephrology. White count 11.3. Sodium 139, peritoneal fluid studies pending - Constitutional Vitals: Vital Signs Temp Pulse Resp BP Pulse Ox 97.6 F 79 14 126/62 95 09/19/19 08:22 09/19/19 07:24 09/19/19 07:24 09/19/19 08:22 09/19/19 07:24 Period Temp Pulse Resp BP Sys/Loaiza Pulse Ox Last 24 Hr 97.6 F-98.5 F 66-81 14-20 90-130/52-67 92-95 Intake and Output 09/18/19 09/19/19 09/19/19 21:59 05:59 13:59 Intake Total 290 410 240 Output Total 125 75 Balance 165 335 240 Weight 194 lb 4.8 oz Intake & Output: Intake & Output 09/18/19 09/19/19 09/19/19 21:59 05:59 13:59 Intake Total 290 410 240 Output Total 125 75 Balance 165 335 240 Weight 194 lb 4.8 oz Intake: IV 50 50 Zosyn 2.25 gm In Dextrose 5% in 50 50 Water 50 ml @ 100 mls/hr IV Q8H [facility] Rx#:[id number] Oral 240 360 240 Output: Void Amount 125 75 Other: Meal Lunch Breakfast Percent of Meal Consumed 75% 75% Feeding Ability Assist with Tray Set Up Independent Urine Appearance Clear Clear Urine Color Bright Yellow Dark Yellow Urine Odor Strong Stool Size Small Stool Color Black Stool Consistency Formed # Voids 1 # Bowel Movements 1 General appearance: no acute distress Exam: Alert oriented Nonlabored breathing No anxiety Minimally tender abdomen Medical - PN: Obj Da - Labs CBC & Chem 7: 09/19/19 05:20 09/19/19 05:20 Labs: Abnormal Lab Results 09/19/19 09/19/19 09/19/19 05:20 05:20 05:20 WBC RBC Hgb Hct POC Hct MPV Gran % Lymph % (Auto) Gran # Lymph # (Auto) Seg Neutrophils % Lymphocytes % Myelocytes % RBC Morphology Hypochromasia ESR Percent Retic PT INR APTT POC Sodium Sodium 129 L POC Chloride Chloride 90 L POC BUN BUN 47 H Creatinine 7.2 H* POC Creatinine Glucose 385 H POC Glucose Calcium 7.6 L POC WB Ioniz Calcium Phosphorus 4.8 H Magnesium Iron TIBC Unsat Iron Binding Ferritin GGT 54 H Alkaline Phosphatase 181 H C-Reactive Protein NT-Pro-B Natriuret Pep 3169.0 H Total Protein 5.4 L Albumin 1.5 L Globulin 3.9 H Albumin/Globulin Ratio 0.4 L Prealbumin Lipase PTH Intact 156.9 H Urine Protein Ur Leukocyte Esterase Urine WBC Ur Squamous Epith Cells 09/19/19 09/18/19 09/18/19 05:20 05:20 05:20 WBC 11.3 H RBC 2.86 L Hgb 8.8 L Hct 28.0 L POC Hct MPV Gran % Lymph % (Auto) Gran # Lymph # (Auto) Seg Neutrophils % 93 H Lymphocytes % 3 L Myelocytes % 1 H RBC Morphology Abnorm A Hypochromasia Few A ESR Percent Retic PT 15.4 H INR 1.2 H APTT 43 H POC Sodium Sodium POC Chloride Chloride POC BUN BUN Creatinine POC Creatinine Glucose POC Glucose Calcium POC WB Ioniz Calcium Phosphorus Magnesium Iron 22 L TIBC 103 L Unsat Iron Binding 81 L Ferritin 808.6 H GGT Alkaline Phosphatase C-Reactive Protein 33.3 H NT-Pro-B Natriuret Pep Total Protein Albumin Globulin Albumin/Globulin Ratio Prealbumin 5.4 L Lipase PTH Intact Urine Protein Ur Leukocyte Esterase Urine WBC Ur Squamous Epith Cells 09/18/19 09/18/19 09/18/19 05:20 05:20 05:20 WBC 12.2 H RBC 2.77 L Hgb 8.4 L Hct 26.5 L POC Hct MPV 10.5 H Gran % Lymph % (Auto) Gran # Lymph # (Auto) Seg Neutrophils % 91 H Lymphocytes % 3 L Myelocytes % RBC Morphology Abnorm A Hypochromasia Few A ESR > 120 H Percent Retic 2.04 H PT INR APTT POC Sodium Sodium 126 L POC Chloride Chloride 86 L POC BUN BUN 46 H Creatinine 7.2 H* POC Creatinine Glucose 296 H POC Glucose Calcium 7.5 L POC WB Ioniz Calcium Phosphorus Magnesium 1.4 L Iron TIBC Unsat Iron Binding Ferritin GGT 42 H Alkaline Phosphatase 143 H C-Reactive Protein NT-Pro-B Natriuret Pep Total Protein 5.0 L Albumin 1.5 L Globulin Albumin/Globulin Ratio 0.4 L Prealbumin Lipase PTH Intact Urine Protein Ur Leukocyte Esterase Urine WBC Ur Squamous Epith Cells 09/17/19 09/17/19 09/17/19 10:42 10:15 10:15 WBC RBC Hgb Hct POC Hct 27.0 L MPV Gran % Lymph % (Auto) Gran # Lymph # (Auto) Seg Neutrophils % Lymphocytes % Myelocytes % RBC Morphology Hypochromasia ESR Percent Retic PT INR APTT POC Sodium 129 L Sodium 131 L POC Chloride 91 L Chloride 93 L POC BUN 44 H BUN 50 H Creatinine 7.4 H* POC Creatinine 8.2 H* Glucose 189 H POC Glucose 178 H Calcium 7.6 L POC WB Ioniz Calcium 1.01 L Phosphorus Magnesium Iron TIBC Unsat Iron Binding Ferritin GGT Alkaline Phosphatase 128 H C-Reactive Protein NT-Pro-B Natriuret Pep Total Protein 5.0 L Albumin 1.5 L Globulin Albumin/Globulin Ratio 0.4 L Prealbumin Lipase < 7 L PTH Intact Urine Protein 30 A Ur Leukocyte Esterase 25 A Urine WBC 6 H Ur Squamous Epith Cells 5 H 09/17/19 10:15 WBC RBC 2.73 L Hgb 8.5 L Hct 26.1 L POC Hct MPV 10.5 H Gran % 88.7 H Lymph % (Auto) 4.4 L Gran # 8.98 H Lymph # (Auto) 0.45 L Seg Neutrophils % Lymphocytes % Myelocytes % RBC Morphology Hypochromasia ESR Percent Retic PT INR APTT POC Sodium Sodium POC Chloride Chloride POC BUN BUN Creatinine POC Creatinine Glucose POC Glucose Calcium POC WB Ioniz Calcium Phosphorus Magnesium Iron TIBC Unsat Iron Binding Ferritin GGT Alkaline Phosphatase C-Reactive Protein NT-Pro-B Natriuret Pep Total Protein Albumin Globulin Albumin/Globulin Ratio Prealbumin Lipase PTH Intact Urine Protein Ur Leukocyte Esterase Urine WBC Ur Squamous Epith Cells Meds: Medications Acetaminophen (Tylenol) 650 mg PO Q4-6HP PRN; Protocol PRN Reason: Per Pain Protocol/Fever > 101 Last Admin: 09/18/19 23:13 Dose: 650 mg Documented by: Hydrocodone Bitart/Acetaminophen ([place] 7.5/325mg) 1 tab PO Q4-6HP PRN; Prot ocol PRN Reason: Per Pain Protocol Last Admin: 09/19/19 05:11 Dose: 1 tab Documented by: Aspirin (Aspirin) 81 mg PO DAILY [facility] Last Admin: 09/19/19 08:49 Dose: 81 mg Documented by: Atorvastatin Calcium (Lipitor) [address] [facility] Last Admin: 09/18/19 21:13 Dose: 10 mg Documented by: Bisacodyl (Dulcolax) 10 mg FL Q2-3DAYS PRN PRN Reason: Constipation Calcitriol (Rocaltrol) 0.25 mcg PO 3XW [facility] Calcium Acetate (Phoslo) 667 mg PO TIDCC [facility] Last Admin: 09/19/19 07:29 Dose: 667 mg Documented by: Citalopram Hydrobromide (Celexa) [address] [facility] Last Admin: 09/18/19 21:14 Dose: 20 mg Documented by: Darbepoetin Jimbo (Aranesp) 150 mcg IV Q7D [facility] Last Admin: 09/18/19 17:27 Dose: 150 mcg Documented by: Dextrose (Dextrose 50%) 0 ml IV UD PRN PRN Reason: Hypoglycemia Diagnostic Test (Pha) (Accu-Chek) 1 each FS ACHS [facility] Last Admin: 09/19/19 07:16 Dose: 1 each Documented by: Docusate Sodium (Colace) 100 mg PO BID [facility] Last Admin: 09/19/19 08:47 Dose: 100 mg Documented by: Ergocalciferol (Drisdol) 50,000 unit PO Q2W [facility] Ferrous Sulfate (Ferrous Sulfate) 325 mg PO BID [facility] Last Admin: 09/19/19 08:50 Dose: 325 mg Documented by: Glucose (Insta-Glucose) 15 gm PO PRN PRN PRN Reason: Hypoglycemia Guaifenesin/Codeine Phosphate (Robitussin Ac) 10 ml PO Q4HP PRN PRN Reason: Cough Heparin Sodium (Porcine) (Heparin) 5,000 unit SQ Q12 [facility] Last Admin: 09/19/19 08:51 Dose: 5,000 unit Documented by: Hydromorphone HCl (Dilaudid) 0 mg IV Q4HP PRN; Protocol PRN Reason: Per Pain Protocol Last Admin: 09/18/19 22:58 Dose: 0.5 mg Documented by: Piperacillin Sod/Tazobactam (Sod 2.25 gm/ Dextrose) 50 mls @ 100 mls/hr IV Q8H [facility]; Protocol Last Admin: 09/19/19 07:31 Dose: 100 mls/hr Documented by: Insulin Human Lispro (Humalog) 0 unit SQ [facility]; Protocol Last Admin: 09/19/19 07:27 Dose: 6 units Documented by: Iron Carb/Multivit/Client Relations Associate/Folic Acid (Multivitamin W/Minerals) 1 tab PO DAILY [facility] Last Admin: 09/19/19 08:49 Dose: 1 tab Documented by: Magnesium Oxide (Magnesium Oxide) 400 mg PO DAILY [facility] Last Admin: 09/19/19 08:49 Dose: 400 mg Documented by: Melatonin (Melatonin 3mg Tablet) 3 mg PO HSP PRN PRN Reason: Insomnia Ondansetron HCl (Zofran Odt) 4 mg SL Q4-6HP PRN; Protocol PRN Reason: Nausea And Vomiting Ondansetron HCl (Zofran) 4 mg IV Q4-6HP PRN; Protocol PRN Reason: Nausea And Vomiting Anastrozole [ (Arimidex] 1 Mg) 1 dose PO DAILY [facility] Last Admin: 09/19/19 08:48 Dose: 1 dose Documented by: Sucroferric Oxyhydroxide [ Velphoro] 500 Mg 1 dose PO DAILY [facility] Last Admin: 09/18/19 13:27 Dose: Not Given Documented by: Polyethylene Glycol (Miralax) 17 gm PO DAILYP PRN PRN Reason: Constipation Last Admin: 09/19/19 08:47 Dose: 17 gm Documented by: Senna/Docusate Sodium (Senna Plus Tablet) 1 tab PO HS [facility] Last Admin: 09/18/19 21:14 Dose: 1 tab Documented by: Sodium Chloride (Saline Flush) 10 ml IV Q8 [facility] Last Admin: 09/19/19 05:57 Dose: Not Given Documented by: Vitamin B Complex (Vitamin B Complex) 1 cap PO DAILY [facility] Last Admin: 09/19/19 08:50 Dose: 1 cap Documented by: Vitamin D (Vitamin D3) 2,000 unit PO DAILY [facility] Last Admin: 09/19/19 08:48 Dose: 2,000 unit Documented by: Medical - PN: A/P - Time Spent With Patient Total time spent is greater than 50% in coordination of care (as documented) at patient's floor/unit and/or counseling patient: 15 - 24 minutes (1) Peritonitis Problem details: 1. Serial peritoneal dialysis cell count and differential 2. Vancomycin and Pipracil and tazobactam pending culture return 3. Inflammatory biomarkers Status: Acute Assessment and plan: * Acute peritonitis-clinically improving with ongoing management per nephrology * End-stage renal disease on peritoneal dialysis per nephrology * History of HTN continue antihypertensives CCB/ARB * History of DM type II continue sliding-scale insulin/CC diet * Hyperlipidemia on home dose statin * Anxiety disorder stable on citalopram * Anemia of chronic disease stable * Full code * Prophylaxis heparin Plan * Intraperitoneal antibiotics per nephrology * Continue Pre-existing medical condition management as above * PT OT/nutrition support * Discharge planning per case management Current Visit: Yes Medical - PN: Qual - VTE Deep Vein Thrombosis/Pulmonary Embolism Present on Admission: No
[2019-09-19] MEDS: Sucroferric Oxyhydroxide [Velphoro] 500 MG PO SCH (11:55)
[2019-09-19 13:46] LABS: Total Protein,Peritoneal Fluid 0.2 gm/dL
[2019-09-19 15:05] LABS: Nucleated Cel,Peritoneal Fluid 316 /cumm; RBC,Peritoneal Fluid < 50000 /cumm
[2019-09-19 15:13] LABS: Monocyte,Peritoneal Fluid 9 %; Neutrophils,Peritoneal Fluid 85 %
--- NOTE | 2019-09-19 17:14 | Nephrology Progress Note ---
Subjective Patient information: Note initiated : 09/19/19 at 5:07 pm Service Date, if different from initiated Date: [] Patient: Hedy Pizarro 63 y/o F admitted on 09/17/19 for abd pain x 5 weeks, h-pylori. Chief Complaint: [] Principal diagnosis: Peritonitis Interval history: Patient continues to report some mild right upper quadrant abdominal pain worse with her exchanges. The peritoneal dialysis nurses informed me that there was a large amount of fibrin (like a jellyfish) in her bag this AM. The cultures are now growing some Gm (-) rods which can happen in PD related peritonitis, but more likely in a bowel perforation or SBE if she has been developing cirrhosis since you would not see ascites develop (because of PD fluid) but the elevated PT/PTT, marked decrease in albumin and edema are all present in the patient. Pertinent ROS: N/A Additional PMFSH (Level 3 Only): N/A Objective - Vital Signs Vital signs: Vital Signs Temp Pulse Resp BP BP Pulse Ox 09/19/19 15:36 36.9 C 83 14 118/68 99 09/19/19 11:34 36.1 C 80 18 118/65 98 09/19/19 08:22 36.4 C 126/62 09/19/19 07:24 36.4 C 79 14 126/62 95 09/19/19 03:21 36.9 C 81 20 122/66 92 09/19/19 00:13 36.8 C 78 20 130/67 93 09/18/19 21:00 36.9 C 97/54 09/18/19 20:35 36.9 C 97/54 09/18/19 19:16 36.9 C 76 20 97/54 94 Intake and Output 09/19/19 09/19/19 09/19/19 05:59 13:59 21:59 Intake Total 410 410 50 Output Total 75 50 Balance 335 360 50 Intake: IV 50 50 50 Zosyn 2.25 gm In Dextrose 5% in 50 50 50 Water 50 ml @ 100 mls/hr IV Q8H [facility] Rx#:[id number] Oral 360 360 Output: Void Amount 75 50 Other: Meal Lunch Percent of Meal Consumed 50% Feeding Ability Assist with Tray Set Up Urine Appearance Clear Clear Urine Color Dark Yellow Bright Yellow Urine Odor Strong Normal Stool Size Small Moderate Stool Color Black Brown Stool Consistency Formed Soft Formed # Voids 1 # Bowel Movements 1 1 Intake & Output: Intake & Output 09/19/19 09/19/19 09/19/19 05:59 13:59 21:59 Intake Total 410 410 50 Output Total 75 50 Balance 335 360 50 Intake: IV 50 50 50 Zosyn 2.25 gm In Dextrose 5% in 50 50 50 Water 50 ml @ 100 mls/hr IV Q8H [facility] Rx#:[id number] Oral 360 360 Output: Void Amount 75 50 Other: Meal Lunch Percent of Meal Consumed 50% Feeding Ability Assist with Tray Set Up Urine Appearance Clear Clear Urine Color Dark Yellow Bright Yellow Urine Odor Strong Normal Stool Size Small Moderate Stool Color Black Brown Stool Consistency Formed Soft Formed # Voids 1 # Bowel Movements 1 1 - General Appearance General appearance: obese, moderate distress, chronically ill EENT: ATNC, PERRL, mucous membranes dry Neck: no JVD, no thyromegaly, no carotid bruit, supple Respiratory: no kyphosis, no scoliosis, clear Cardiology: mid-systolic murmur, no rub, no gallops Gastrointestinal: normoactive bowel sounds, tenderness (mild), no guarding Integumentary: no rash, warm and dry Neurologic: no focal deficit, no asterixis, alert and oriented x3 (Sometimes more confused than I would expect) Musculoskeletal: no deformities, no erythema, no cyanosis, no clubbing Psychiatric: mood/affect appropriate, cooperative - Lab 09/19/19 05:20 09/19/19 05:20 Most recent lab results Calcium 7.6 mg/dl (8.6-10.4) L 09/19/19 05:20 Phosphorus 4.8 mg/dL (2.7-4.5) H 09/19/19 05:20 Magnesium 1.7 mg/dL (1.6-2.5) 09/19/19 05:20 - Imaging Kidney/bladder ultrasound: image reviewed Assessment and Plan (1) Peritonitis 1. Serial Cell count and diff shows marked improvement as does clinical exam 2. Continue pip/javier pending identification and sensitivities on gram-negative rods 3. If this is gram-negative peritonitis related to PD, it may ultimately require removal with a catheter and conversion to hemodialysis. 4. Alternatively if this is spontaneous bacterial peritonitis associated with undiagnosed cirrhosis I am hoping this would have a better outcome in terms of keeping the patient on peritoneal dialysis. 5. In any event she will need 2 weeks of either IV or intraperitoneal antibiotics depending on the sensitivities of the gram-negative fadumo. 6. There is no gallbladder, or CT evidence of appendicitis, diverticulitis, or bowel abscess as a potential source of gram-negative rods. 7. Most episodes of dialysis related peritonitis are gram-positive statistically speaking. Status: Acute Priority: High Comment: 1. Serial peritoneal dialysis cell count and differential 2. Stop Vancomycin and Continue Pip-javier pending Sensitivities 3. Inflammatory biomarkers (2) ESRD (end stage renal disease) 1. All 2.5% PD fluid 2. Lower exchange volumes but try to increase ultrafiltration to mobilize her edema 3. Hold BP Rx while trying to promote net negative ultrafiltration 4. PD fluid studies (cytology, cell count and diff, Chemistries ordered) 5. Will probably need to do a PET test if we are unable to mobilize fluid suggesting that she has failure of the peritoneal membrane. 6. Add heparin to the PD fluid due to the large amount of fibrin 7. Constipation protocol as this may be interfering with good flow through her catheter as well Status: Acute Priority: Medium Comment: Low albumin and volume overload (t otal body anasarca) may require conversion to HD. Stop BP Rx and try to increase U/F with 4.25% PD fluid (3) Micronodular cirrhosis 1. MELD score is high due to SCr which is ESRD not HRS 2. Will see about SAG but not sure how to interpret with PD 3. Serologies for auto-immune, Copper/cereloplasma, ferritin only elevated due to acute inflammation (acute phase reactant), Alpha-1-AT and cytology due to hx of breast CA. 4. May require liver biopsy and or liver/spleen scan to look for "colloid shift" as an outpatient. 5. Dopple of liver to R/O portal vein thrombosis 6. Hepatitis serologies Status: Acute Priority: High Comment: Diagnosis based on CT findings (4) Anemia in ESRD (end-stage renal disease) 1. Iron store ok 2. Blood loss to lab on top of ESRD 3. Start increased Aranesp 100 ug q week Status: Chronic Priority: Medium (5) Hyperparathyroidism due to renal insufficiency 1. Check PTHi 2. Alcitriol +/- sensipar based on Ca, PO4, PTHi levels Status: Chronic Priority: Medium
[2019-09-19] MEDS ORDERED: HEPARIN 10,000 UNIT/ML VIAL IR ONE (17:45)
[2019-09-19] MEDS: CITALOPRAM 20 MG TABLET PO SCH (20:32)
[2019-09-19] MEDS: ATORVASTATIN 20 MG TABLET PO SCH (20:32)
[2019-09-19] MEDS: POLYETHYLENE GLYCOL 3350 17 GM PACKET PO SCH (20:33)
[2019-09-19] MEDS: INSULIN GLARGINE, HUMAN 1 UNIT/0.01 ML SQ SCH (20:34)
[2019-09-19] MEDS: SENNOSIDES/DOCUSATE SODIUM 1 TAB TABLET PO SCH (20:35)
[2019-09-19] MEDS ORDERED: DOCUSATE SODIUM 100 MG CAPSULE PO SCH (21:00)
[2019-09-19] MEDS ORDERED: HYDROCODONE/APAP 7.5/325MG TABLET PO ONE (23:36)
[2019-09-20] MEDS: PIPERACILLIN SODIUM/TAZOBACTAM 2.25 GM in DEXTROSE 5% IN WATER 50 ML IV SCH ×4 (00:30→23:25)
[2019-09-20] MEDS: POLYETHYLENE GLYCOL 3350 17 GM PACKET PO SCH ×4 (02:04→20:27)
[2019-09-20] MEDS: 0.9 % SODIUM CHLORIDE 10 ML SYRINGE IV SCH ×3 (06:36→20:13)
[2019-09-20 06:42] LABS: Hematocrit 26.3 % (34.1-44.9); Hemoglobin 8.5 g/dL (11.2-15.7); Mean Cell Volume 94.9 fL (80.0-100.0); Mean Corpuscular HGB Conc 32.3 g/dL (31.0-36.0); Mean Platelet Volume 10.2 fL (7.4-10.4); Platelet Count 336 K/mcL (140-440); RBC 2.77 M/mcL (3.59-5.38); Red Cell Distribution Width 12.8 % (11.5-14.5); WBC 9.5 K/mcL (4.50-11.00)
[2019-09-20 06:56] LABS: ALT/SGPT 17 U/l (0-40); AST/SGOT 24 U/l (0-37); Alkaline Phosphatase 185 U/L (39-117); Bilirubin,Direct < 0.2 mg/dL (0.0-0.3); Bilirubin,Total 0.2 mg/dL (0.0-1.0); Blood Urea Nitrogen 45 mg/dl (8-23); Calcium 7.7 mg/dl (8.6-10.4); Carbon Dioxide 27 mmol/L (22-30); Glucose 228 mg/dL (70-105); Lactate Dehydrogenase 199 U/L (94-250); Phosphorous 4.2 mg/dL (2.7-4.5); Triglycerides 102 mg/dl (<150)
[2019-09-20] MEDS: INSULIN LISPRO 1 UNIT/0.01 ML UNIT SQ SCH ×4 (07:02→20:17)
[2019-09-20 07:24] LABS: Albumin 1.5 gm/dL (3.2-5.2); Albumin/Globulin Ratio 0.4 (1.0-2.3); Chloride 87 mmol/L (96-108); Globulin 3.7 gm/dL (2.2-3.7); Glomerular Filtration Rate 5
--- NOTE | 2019-09-20 08:03 | Ultrasound Report ---
INDICATION: New cirrhosis ? PVT TECHNIQUE: Grayscale and color flow Doppler spectral imaging COMPARISON: None. FINDINGS: Gallbladder:Previous cholecystectomy. Common bile duct:Prominent common bile duct measures 9 mm. No intrahepatic bile duct dilatation. No detectable choledocholithiasis. Liver:Liver is sonographically dense. A contour is mildly nodular consistent with the supplied diagnosis of cirrhosis. There is no focal mass. No focal abnormality.. Liver [id number] cm maximally There is mild ascites Portal vein:Normal hepatopedal portal venous flow. No portal venous thrombosis. Portal vein measures approximately 12 mm in diameter Pancreas:Visualized portions of the pancreas are normal Spleen: Spleen measures 12.1 x 4.8 x 11.7 cm. No focal abnormality. IMPRESSION: 1. Previous cholecystectomy 2. Prominent common bile duct. No intrahepatic bile duct dilatation 3. Sonographically dense liver. Liver is mildly nodular in contour consistent with cirrhosis. No focal mass 4. Mild ascites 5. Normal appearance of the portal vein. Normal hepatopedal portal venous flow. No evidence for portal vein thrombosis Interpreted and Authenticated by: Abdiel Sanchez 09/20/19
--- NOTE | 2019-09-20 08:03 | Ultrasound Report ---
INDICATION: New cirrhosis ? PVT TECHNIQUE: Grayscale and color flow Doppler spectral imaging COMPARISON: None. FINDINGS: Gallbladder:Previous cholecystectomy. Common bile duct:Prominent common bile duct measures 9 mm. No intrahepatic bile duct dilatation. No detectable choledocholithiasis. Liver:Liver is sonographically dense. A contour is mildly nodular consistent with the supplied diagnosis of cirrhosis. There is no focal mass. No focal abnormality.. Liver [id number] cm maximally There is mild ascites Portal vein:Normal hepatopedal portal venous flow. No portal venous thrombosis. Portal vein measures approximately 12 mm in diameter Pancreas:Visualized portions of the pancreas are normal Spleen: Spleen measures 12.1 x 4.8 x 11.7 cm. No focal abnormality. IMPRESSION: 1. Previous cholecystectomy 2. Prominent common bile duct. No intrahepatic bile duct dilatation 3. Sonographically dense liver. Liver is mildly nodular in contour consistent with cirrhosis. No focal mass 4. Mild ascites 5. Normal appearance of the portal vein. Normal hepatopedal portal venous flow. No evidence for portal vein thrombosis Interpreted and Authenticated by: Abdiel Sanchez 09/20/19
[2019-09-20 08:09] LABS: Eosinophils % (Manual) 3 % (0-7); Lymphocytes % 12 % (15-49); Monocytes % (Manual) 3 % (1-12); Platelet Estimate NORMAL (NORMAL); RBC Morphology NORMAL (NORMAL); Segmented Neutrophils % 82 % (38-78)
[2019-09-20] MEDS: MAGNESIUM OXIDE 400 MG TABLET PO SCH (08:47)
[2019-09-20] MEDS: VITAMIN B COMPLEX 1 CAPSULE PO SCH (08:47)
[2019-09-20] MEDS: ASPIRIN 81 MG TAB.CHEW PO SCH (08:47)
[2019-09-20] MEDS: MULTIVIT,THER IRON,CA,FA & MIN 1 TABLET PO SCH (08:47)
[2019-09-20] MEDS: Anastrozole [Arimidex] 1 MG PO SCH (08:47)
[2019-09-20] MEDS: CALCIUM ACETATE 667 MG CAPSULE PO SCH ×3 (08:48→16:28)
[2019-09-20] MEDS: HEPARIN 5,000 UNIT/ML VIAL SQ SCH ×2 (08:48→20:27)
[2019-09-20] MEDS: Sucroferric Oxyhydroxide [Velphoro] 500 MG PO SCH (08:48)
[2019-09-20] MEDS: DOCUSATE SODIUM 100 MG CAPSULE PO SCH ×2 (08:49→20:28)
--- NOTE | 2019-09-20 10:25 | Internal Med Progress Note ---
Medical - PN: Subj Patient information: Note initiated : 09/20/19 at 10:23 am Service Date, if different from initiated Date: [] Patient: Hedy Pizarro a 63 y/o F admitted on 09/17/19 for abd pain x 5 weeks, h-pylori. Chief Complaint: [] Interval history: Ms. Pizarro is a 63 year old F female with a past history of ESRD on peritoneal dialysis/DM type II/HTN who lives at [facility] and follows up with nephrology clinic at [facility]. Patient over the last 5 weeks has noticed persistent and progressive abdominal pain diffuse in nature without associated fever or chills. Pain is worsened during peritoneal dialysis. She presents to the ER for evaluation. Initial work-up was consistent with bacterial peritonitis. Nephrology was consulted and patient was requested to be admitted for management of peritonitis. Antibiotics were initiated after cultures were drawn Subsequently hospitalist service was consulted for admission At the time of my evaluation patient is alert and oriented. She was able to answer most of the questions. She denies shaking chills/sick contact/lighthe adedness, dizziness. She further denies lower extremity swelling, nausea, vomiting, diarrhea. 09/17-patient doing a lot better. Denies fever chills. Minimal abdominal pain at the catheter site. On intraperitoneal antibiotics per nephrology. White count 12.2. Sodium 126. No additional concerns per nursing staff 09/18-patient doing well. No overnight events. No concerns per staff. No fever chills. Complains of abdominal pain at the catheter insertion site. Denies diarrhea, appetite normal. In good spirits. Continuing a intraperitoneal antibiotic infusion per nephrology. White count 11.3. Sodium 139, peritoneal fluid studies pending 09/19-ongoing antibiotic as per nephrology. Patient clinically improved. Abdominal pain much improved. Ultrasound liver/gallbladder shows cirrhotic liver with mild ascites. Normal hepatopetal portal venous flow. White count 9.5. Ongoing peritoneal dialysis. Sodium 127 - Constitutional Vitals: Vital Signs Temp Pulse Resp BP Pulse Ox 98.5 F 79 16 120/62 97 09/20/19 08:38 09/20/19 08:00 09/20/19 08:00 09/20/19 08:38 09/20/19 08:00 Period Temp Pulse Resp BP Sys/Loaiza Pulse Ox Last 24 Hr 97.0 F-98.8 F 76-84 14-20 118-143/57-68 95-99 Intake and Output 09/19/19 09/20/19 09/20/19 21:59 05:59 13:59 Intake Total 50 300 100 Output Total 50 Balance 50 250 100 Weight 193 lb 4.8 oz Intake & Output: Intake & Output 09/19/19 09/20/19 09/20/19 21:59 05:59 13:59 Intake Total 50 300 100 Output Total 50 Balance 50 250 100 Weight 193 lb 4.8 oz Intake: IV 50 100 Zosyn 2.25 gm In Dextrose 5% in 50 100 Water 50 ml @ 100 mls/hr IV Q8H CARLOS Rx#:[id number] Oral 300 Output: Void Amount 50 Other: Meal Dinner Percent of Meal Consumed 50% Feeding Ability Independent Urine Appearance Clear Clear Urine Color Bright Yellow Bright Yellow Urine Odor Normal General appearance: no acute distress Exam: Alert oriented Nonlabored breathing No anxiety Nondistended abdomen Medical - PN: Obj Da - Labs CBC & Chem 7: 09/20/19 05:20 09/20/19 05:20 Labs: Abnormal Lab Results 09/20/19 09/20/19 09/19/19 05:20 05:20 05:20 WBC RBC 2.77 L Hgb 8.5 L Hct 26.3 L POC Hct MPV Gran % Lymph % (Auto) Gran # Lymph # (Auto) Seg Neutrophils % 82 H Lymphocytes % 12 L Myelocytes % RBC Morphology Hypochromasia ESR Percent Retic PT INR APTT POC Sodium Sodium 127 L POC Chloride Chloride 87 L POC BUN BUN 45 H Creatinine 7.2 H* POC Creatinine Glucose 228 H POC Glucose Calcium 7.7 L POC WB Ioniz Calcium Phosphorus Magnesium Iron TIBC Unsat Iron Binding Ferritin GGT 74 H Alkaline Phosphatase 185 H C-Reactive Protein NT-Pro-B Natriuret Pep Total Protein 5.2 L Albumin 1.5 L Globulin Albumin/Globulin Ratio 0.4 L Prealbumin Lipase PTH Intact 156.9 H Urine Protein Ur Leukocyte Esterase Urine WBC Ur Squamous Epith Cells Hepatitis A Ab Total 09/19/19 09/19/19 09/19/19 05:20 05:20 05:20 WBC 11.3 H RBC 2.86 L Hgb 8.8 L Hct 28.0 L POC Hct MPV Gran % Lymph % (Auto) Gran # Lymph # (Auto) Seg Neutrophils % 93 H Lymphocytes % 3 L Myelocytes % 1 H RBC Morphology Abnorm A Hypochromasia Few A ESR Percent Retic PT INR APTT POC Sodium Sodium 129 L POC Chloride Chloride 90 L POC BUN BUN 47 H Creatinine 7.2 H* POC Creatinine Glucose 385 H POC Glucose Calcium 7.6 L POC WB Ioniz Calcium Phosphorus 4.8 H Magnesium Iron TIBC Unsat Iron Binding Ferritin GGT 54 H Alkaline Phosphatase 181 H C-Reactive Protein NT-Pro-B Natriuret Pep 3169.0 H Total Protein 5.4 L Albumin 1.5 L Globulin 3.9 H Albumin/Globulin Ratio 0.4 L Prealbumin Lipase PTH Intact Urine Protein Ur Leukocyte Esterase Urine WBC Ur Squamous Epith Cells Hepatitis A Ab Total 09/18/19 09/18/19 09/18/19 05:20 05:20 05:20 WBC RBC Hgb Hct POC Hct MPV Gran % Lymph % (Auto) Gran # Lymph # (Auto) Seg Neutrophils % Lymphocytes % Myelocytes % RBC Morphology Hypochromasia ESR > 120 H Percent Retic 2.04 H PT 15.4 H INR 1.2 H APTT 43 H POC Sodium Sodium POC Chloride Chloride POC BUN BUN Creatinine POC Creatinine Glucose POC Glucose Calcium POC WB Ioniz Calcium Phosphorus Magnesium Iron 22 L TIBC 103 L Unsat Iron Binding 81 L Ferritin 808.6 H GGT Alkaline Phosphatase C-Reactive Protein 33.3 H NT-Pro-B Natriuret Pep Total Protein Albumin Globulin Albumin/Globulin Ratio Prealbumin 5.4 L Lipase PTH Intact Urine Protein Ur Leukocyte Esterase Urine WBC Ur Squamous Epith Cells Hepatitis A Ab Total 09/18/19 09/18/19 09/18/19 05:20 05:20 05:20 WBC 12.2 H RBC 2.77 L Hgb 8.4 L Hct 26.5 L POC Hct MPV 10.5 H Gran % Lymph % (Auto) Gran # Lymph # (Auto) Seg Neutrophils % 91 H Lymphocytes % 3 L Myelocytes % RBC Morphology Abnorm A Hypochromasia Few A ESR Percent Retic PT INR APTT POC Sodium Sodium 126 L POC Chloride Chloride 86 L POC BUN BUN 46 H Creatinine 7.2 H* POC Creatinine Glucose 296 H POC Glucose Calcium 7.5 L POC WB Ioniz Calcium Phosphorus Magnesium 1.4 L Iron TIBC Unsat Iron Binding Ferritin GGT 42 H Alkaline Phosphatase 143 H C-Reactive Protein NT-Pro-B Natriuret Pep Total Protein 5.0 L Albumin 1.5 L Globulin Albumin/Globulin Ratio 0.4 L Prealbumin Lipase PTH Intact Urine Protein Ur Leukocyte Esterase Urine WBC Ur Squamous Epith Cells Hepatitis A Ab Total Reactive A 09/17/19 09/17/19 09/17/19 10:42 10:15 10:15 WBC RBC Hgb Hct POC Hct 27.0 L MPV Gran % Lymph % (Auto) Gran # Lymph # (Auto) Seg Neutrophils % Lymphocytes % Myelocytes % RBC Morphology Hypochromasia ESR Percent Retic PT INR APTT POC Sodium 129 L Sodium 131 L POC Chloride 91 L Chloride 93 L POC BUN 44 H BUN 50 H Creatinine 7.4 H* POC Creatinine 8.2 H* Glucose 189 H POC Glucose 178 H Calcium 7.6 L POC WB Ioniz Calcium 1.01 L Phosphorus Magnesium Iron TIBC Unsat Iron Binding Ferritin GGT Alkaline Phosphatase 128 H C-Reactive Protein NT-Pro-B Natriuret Pep Total Protein 5.0 L Albumin 1.5 L Globulin Albumin/Globulin Ratio 0.4 L Prealbumin Lipase < 7 L PTH Intact Urine Protein 30 A Ur Leukocyte Esterase 25 A Urine WBC 6 H Ur Squamous Epith Cells 5 H Hepatitis A Ab Total 09/17/19 10:15 WBC RBC 2.73 L Hgb 8.5 L Hct 26.1 L POC Hct MPV 10.5 H Gran % 88.7 H Lymph % (Auto) 4.4 L Gran # 8.98 H Lymph # (Auto) 0.45 L Seg Neutrophils % Lymphocytes % Myelocytes % RBC Morphology Hypochromasia ESR Percent Retic PT INR APTT POC Sodium Sodium POC Chloride Chloride POC BUN BUN Creatinine POC Creatinine Glucose POC Glucose Calcium POC WB Ioniz Calcium Phosphorus Magnesium Iron TIBC Unsat Iron Binding Ferritin GGT Alkaline Phosphatase C-Reactive Protein NT-Pro-B Natriuret Pep Total Protein Albumin Globulin Albumin/Globulin Ratio Prealbumin Lipase PTH Intact Urine Protein Ur Leukocyte Esterase Urine WBC Ur Squamous Epith Cells Hepatitis A Ab Total Meds: Medications Acetaminophen (Tylenol) 650 mg PO Q4-6HP PRN; Protocol PRN Reason: Per Pain Protocol/Fever > 101 Last Admin: 09/18/19 23:13 Dose: 650 mg Documented by: Hydrocodone Bitart/Acetaminophen ([place] 7.5/325mg) 1 tab PO Q4-6HP PRN; Protocol PRN Reason: Per Pain Protocol Aspirin (Aspirin) 81 mg PO DAILY [facility] Last Admin: 09/20/19 08:47 Dose: 81 mg Documented by: Atorvastatin Calcium (Lipitor) 10 mg PO HS [facility] Last Admin: 09/19/19 20:32 Dose: 10 mg Documented by: Bisacodyl (Dulcolax) 10 mg PA Q2-3DAYS PRN PRN Reason: Constipation Calcitriol (Rocaltrol) 0.25 mcg PO 3XW [facility] Calcium Acetate (Phoslo) 667 mg PO TIDCC [facility] Last Admin: 09/20/19 08:48 Dose: 667 mg Documented by: Citalopram Hydrobromide (Celexa) 20 mg PO HS [facility] Last Admin: 09/19/19 20:32 Dose: 20 mg Documented by: Darbepoetin Jimbo (Aranesp) 150 mcg IV Q7D [facility] Last Admin: 09/18/19 17:27 Dose: 150 mcg Documented by: Dextrose (Dextrose 50%) 0 ml IV UD PRN PRN Reason: Hypoglycemia Diagnostic Test (Pha) (Accu-Chek) 1 each FS [facility] Last Admin: 09/20/19 06:58 Dose: 1 each Documented by: Docusate Sodium (Colace) 100 mg PO BID [facility] Last Admin: 09/20/19 08:49 Dose: 100 mg Documented by: Ergocalciferol (Drisdol) 50,000 unit PO Q2W [facility] Glucose (Insta-Glucose) 15 gm PO PRN PRN PRN Reason: Hypoglycemia Heparin Sodium (Porcine) (Heparin) 5,000 unit SQ Q12 [facility] Last Admin: 09/20/19 08:48 Dose: 5,000 unit Documented by: Piperacillin Sod/Tazobactam (Sod 2.25 gm/ Dextrose) 50 mls @ 100 mls/hr IV Q8H [facility]; Protocol Last Infusion: 09/20/19 09:18 Dose: Infused Documented by: Insulin Glargine (Lantus) 5 unit SQ [facility] Last Admin: 09/19/19 20:34 Dose: 5 units Documented by: Insulin Human Lispro (Humalog) 0 unit SQ [facility]; Protocol Last Admin: 09/20/19 07:02 Dose: 3 units Documented by: Iron Carb/Multivit/Industrial Truck [employer]/Folic Acid (Multivitamin W/Minerals) 1 tab PO DAILY [facility] Last Admin: 09/20/19 08:47 Dose: 1 tab Documented by: Magnesium Oxide (Magnesium Oxide) 400 mg PO DAILY [facility] Last Admin: 09/20/19 08:47 Dose: 400 mg Documented by: Melatonin (Melatonin 3mg Tablet) 3 mg PO HSP PRN PRN Reason: Insomnia Ondansetron HCl (Zofran Odt) 4 mg SL Q4-6HP PRN; Protocol PRN Reason: Nausea And Vomiting Ondansetron HCl (Zofran) 4 mg IV Q4-6HP PRN; Protocol PRN Reason: Nausea And Vomiting Anastrozole [ (Arimidex] 1 Mg) 1 dose PO DAILY [facility] Last Admin: 09/20/19 08:47 Dose: 1 dose Documented by: Sucroferric Oxyhydroxide [ Velphoro] 500 Mg 1 dose PO DAILY [facility] Last Admin: 09/20/19 08:48 Dose: 1 dose Documented by: Polyethylene Glycol (Miralax) 17 gm PO Q6HRT [facility] Stop: 09/22/19 13:01 Last Admin: 09/20/19 06:51 Dose: Not Given Documented by: Senna/Docusate Sodium (Senna Plus Tablet) 1 tab PO HS [facility] Last Admin: 09/19/19 20:35 Dose: 1 tab Documented by: Sodium Chloride (Saline Flush) 10 ml IV Q8 [facility] Last Admin: 09/20/19 06:36 Dose: Not Given Documented by: Vitamin B Complex (Vitamin B Complex) 1 cap PO DAILY [facility] Last Admin: 09/20/19 08:47 Dose: 1 cap Documented by: Medical - PN: A/P - Time Spent With Patient Total time spent is greater than 50% in coordination of care (as documented) at patient's floor/unit and/or counseling patient: 25 - 35 minutes (1) Peritonitis Problem details: 1. Serial peritoneal dialysis cell count and differential 2. Stop Vancomycin and Continue Pip-javier pending Sensitivities 3. Inflammatory biomarkers Status: Acute Assessment and plan: * Acute peritonitis-clinically improving with ongoing management per nephrology * End-stage renal disease on peritoneal dialysis per nephrology * History of HTN continue antihypertensives CCB/ARB * History of DM type II continue sliding-scale insulin/CC diet * Cirrhosis-confirmed on ultrasound. Synthetic function stable. Serologies awaited(sent by nephrology) will need outpatient follow-up with GI/possible liver biopsy for further evaluation of etiology. * Hyperlipidemia continue home dose statin * Anxiety disorder stable on citalopram * Anemia of chronic disease stable * Full code * Prophylaxis heparin Plan * Intraperitoneal antibiotics per nephrology * Continue Pre-existing medical condition management as above * PT OT/nutrition support * Discharge planning per case management * Outpatient GI follow-up Current Visit: Yes Medical - PN: Qual - VTE Deep Vein Thrombosis/Pulmonary Embolism Present on Admission: No
--- NOTE | 2019-09-20 10:57 | Nephrology Progress Note ---
Subjective Patient information: Note initiated : 09/20/19 at 10:55 am Service Date, if different from initiated Date: [] Patient: Hedy Pizarro 63 y/o F admitted on 09/17/19 for abd pain x 5 weeks, h-pylori. Chief Complaint: [] Principal diagnosis: Peritonitis Interval history: Day #4 hospital admission for gram-negative peritonitis of uncertain etiology. On Pipracil and tazobactam having discontinued the vancomycin. Yesterday was complaining of constipation so her narcotics were discontinued only to be called around 1130 last evening that she had some abdominal pain for which she refused to take Tylenol and wanted her [place] restarted. She is on stool softeners cathartics and [id number] MiraLAX to promote frequent bowel movements and optimize her peritoneal catheter function. In addition heparin was added to yesterday's exchanges and increased to 5 2 L dwells overnight using an IPD Tidal dialysis. PD fluid had about a 20 fold reduction in polymorphonuclear cells to about 380 after 48 hours of antibiotics repeat cell count is pending as is the identification of the gram-negative bacillus. Micronodular cirrhosis is a new discovery on her CT scan and is being worked up with serologies all of which are pending with the exception of positive hepatitis A antibody. My working hypothesis is that this patient has developed cirrhosis leading to a further reduction in albumin production and worsening serum albumin down in the mid 1 range where it previously ran in the threes. If she does have cirrhosis than the etiology of the gram-negative peritoneal fluid culture could just as well be spontaneous bacterial peritonitis as it is a peritoneal dialysis related infection particularly since his this patient has had no reported break in technique and no previous episodes of peritonitis in 3 years of home dialysis therapy. I suspect she will ultimately need a percutaneous liver biopsy and referral to a liver specialist. Unless her serum albumin levels improve with treatment of her peritonitis, she may not be able to remain on home peritoneal dialysis as a therapy in my opinion. For what it is worth the patient's meld score is 22, again in the setting of chronic renal replacement therapy so driven by an elevated creatinine. INR is normal at 1.2, bilirubin is not elevated, there is a slight elevation in transaminases including alkaline phosphatase but the alk phos could be the bone isoenzyme, and finally her ammonia level is normal. She is not mobilizing fluid so we will need to adjust her peritoneal dialysis to provoke promote a net free water loss, improve her anasarca, and raise her serum sodium by virtue of water removal. Pertinent ROS: N/A Additional PMFSH (Level 3 Only): N/A Objective - Vital Signs Vital signs: Vital Signs Temp Pulse Resp BP BP Pulse Ox 09/20/19 08:38 36.9 C 120/62 09/20/19 08:00 36.8 C 79 16 140/67 97 09/20/19 07:15 16 95 09/20/19 03:14 37.1 C 76 20 123/57 95 09/19/19 23:17 37.1 C 84 20 143/63 96 09/19/19 21:00 36.9 C 120/62 09/19/19 20:46 36.9 C 120/62 09/19/19 19:37 36.9 C 79 20 120/62 96 09/19/19 15:36 36.9 C 83 14 118/68 99 09/19/19 11:34 36.1 C 80 18 118/65 98 Intake and Output 09/19/19 09/20/19 09/20/19 21:59 05:59 13:59 Intake Total 50 300 200 Output Total 50 Balance 50 250 200 Intake: IV 50 100 Zosyn 2.25 gm In Dextrose 5% in 50 100 Water 50 ml @ 100 mls/hr IV Q8H [facility] Rx#:[id number] Oral 300 100 Output: Void Amount 50 Other: Meal Dinner Breakfast Percent of Meal Consumed 50% 75% Feeding Ability Independent Urine Appearance Clear Clear Urine Color Bright Yellow Bright Yellow Urine Odor Normal Weight 87.679 kg Intake & Output: Intake & Output 09/19/19 09/20/19 09/20/19 21:59 05:59 13:59 Intake Total 50 300 200 Output Total 50 Balance 50 250 200 Weight 87.679 kg Intake: IV 50 100 Zosyn 2.25 gm In Dextrose 5% in 50 100 Water 50 ml @ 100 mls/hr IV Q8H [facility] Rx#:[id number] Oral 300 100 Output: Void Amount 50 Other: Meal Dinner Breakfast Percent of Meal Consumed 50% 75% Feeding Ability Independent Urine Appearance Clear Clear Urine Color Bright Yellow Bright Yellow Urine Odor Normal - General Appearance General appearance: obese, chronically ill EENT: ATNC, PERRL Neck: no JVD, no carotid bruit, supple Respiratory: kyphosis, clear Cardiology: mid-systolic murmur, no rub, no gallops, regular rate, regular rhythm, normal S1, normal S2 Gastrointestinal: normoactive bowel sounds, no guarding, no organomegaly, no masses Integumentary: no rash, warm and dry Neurologic: no focal deficit, no asterixis, alert and oriented x3, CN 3-12 intact Musculoskeletal: no deformities, no erythema, no cyanosis, no clubbing - Lab 09/20/19 05:20 09/20/19 05:20 Most recent lab results Calcium 7.7 mg/dl (8.6-10.4) L 09/20/19 05:20 Phosphorus 4.2 mg/dL (2.7-4.5) 09/20/19 05:20 Magnesium 1.7 mg/dL (1.6-2.5) 09/20/19 05:20 - Imaging Kidney/bladder ultrasound: other (CT revealed micronodular liver consistent with cirrhosis, Doppler with no evidence of portal vein thrombosis) Assessment and Plan (1) Peritonitis 1. Serial Cell count and diff shows marked improvement as does clinical exam 2. Continue pip/javier pending identification and sensitivities on gram-negative rods 3. If this is gram-negative peritonitis related to PD, it may ultimately require removal with a catheter and conversion to hemodialysis. 4. Alternatively if this is spontaneous bacterial peritonitis associated with undiagnosed cirrhosis I am hoping this would have a better outcome in terms of keeping the patient on peritoneal dialysis. 5. In any event she will need 2 weeks of either IV or intraperitoneal antibiotics depending on the sensitivities of the gram-negative fadumo. 6. There is no gallbladder, or CT evidence of appendicitis, diverticulitis, or bowel abscess as a potential source of gram-negative rods. 7. Most episodes of dialysis related peritonitis are gram-positive statistically speaking. Status: Acute Priority: High Comment: 1. Serial peritoneal dialysis cell count and differential 2. Stop Vancomycin and Continue Pip-javier pending Sensitivities 3. Inflammatory biomarkers (2) ESRD (end stage renal disease) 1. All 2.5% PD fluid 2. Lower exchange volumes but try to increase ultrafiltration to mobilize her edema 3. Hold BP Rx while trying to promote net negative ultrafiltration 4. PD fluid studies (cytology, cell count and diff, Chemistries ordered) 5. Will probably need to do a PET test if we are unable to mobilize fluid suggesting that she has failure of the peritoneal membrane. 6. Add heparin to the PD fluid due to the large amount of fibrin 7. Constipation protocol as this may be interfering with good flow through her catheter as well Status: Acute Priority: Medium Comment: Low albumin and volume overload (total body anasarca) may require conversion to HD. Stop BP Rx and try to increase U/F with 4.25% PD fluid (3) Micronodular cirrhosis 1. MELD score is high due to SCr which is ESRD not HRS 2. Will see about SAG but not sure how to interpret with PD 3. Serologies for auto-immune, Copper/cereloplasma, ferritin only elevated due to acute inflammation (acute phase reactant), Alpha-1-AT and cytology due to hx of breast CA. 4. May require liver biopsy and or liver/spleen scan to look for "colloid shift" as an outpatient. 5. Dopple of liver to R/O portal vein thrombosis 6. Hepatitis serologies Status: Acute Priority: High Comment: Diagnosis based on CT findings (4) Anemia in ESRD (end-stage renal disease) 1. Iron store ok 2. Blood loss to lab on top of ESRD 3. Start increased Aranesp 100 ug q week Status: Chronic Priority: Medium (5) Hyperparathyroidism due to renal insufficiency 1. Check PTHi 2. Alcitriol +/- sensipar based on Ca, PO4, PTHi levels Status: Chronic Priority: Medium
[2019-09-20 14:28] LABS: Hepatitis B Surface Antigen NON-REACTIVE (NON-REACTIVE); Hepatitis C Virus Antibody NON-REACTIVE (NON-REACTIVE)
[2019-09-20 15:00] LABS: Mesothelial,Peritoneal Fluid 2 %; Monocyte,Peritoneal Fluid 16 %; Neutrophils,Peritoneal Fluid 80 %
[2019-09-20 15:01] LABS: Nucleated Cel,Peritoneal Fluid 649 /cumm; RBC,Peritoneal Fluid < 50000 /cumm
[2019-09-20] MEDS ORDERED: ALBUMIN HUMAN 25 GM/100 ML BAG IV ONE (19:30)
[2019-09-20] MEDS ORDERED: HEPARIN 10,000 UNIT/ML VIAL IR ONE (20:00)
[2019-09-20] MEDS: INSULIN GLARGINE, HUMAN 1 UNIT/0.01 ML SQ SCH (20:27)
[2019-09-20] MEDS: SENNOSIDES/DOCUSATE SODIUM 1 TAB TABLET PO SCH (20:28)
[2019-09-20] MEDS: CITALOPRAM 20 MG TABLET PO SCH (20:28)
[2019-09-20] MEDS: ATORVASTATIN 20 MG TABLET PO SCH (20:28)
[2019-09-20] MEDS: HYDROCODONE/APAP 7.5/325MG TABLET PO PRN (23:31)
[2019-09-21 06:32] LABS: Hemoglobin 8.7 g/dL (11.2-15.7); Mean Cell Volume 93.8 fL (80.0-100.0); Mean Corpuscular HGB Conc 32.2 g/dL (31.0-36.0); Mean Platelet Volume 10.2 fL (7.4-10.4); Platelet Count 361 K/mcL (140-440); RBC 2.88 M/mcL (3.59-5.38)
[2019-09-21 07:19] LABS: ALT/SGPT 18 U/l (0-40); AST/SGOT 25 U/l (0-37); Alkaline Phosphatase 184 U/L (39-117); Bilirubin,Direct < 0.2 mg/dL (0.0-0.3); Bilirubin,Total 0.2 mg/dL (0.0-1.0); Blood Urea Nitrogen 42 mg/dl (8-23); Calcium 7.9 mg/dl (8.6-10.4); Carbon Dioxide 26 mmol/L (22-30); Glucose 192 mg/dL (70-105); Lactate Dehydrogenase 210 U/L (94-250); Triglycerides 128 mg/dl (<150); Uric Acid 6.4 mg/dL (2.5-8.0)
[2019-09-21] MEDS: INSULIN LISPRO 1 UNIT/0.01 ML UNIT SQ SCH ×4 (07:21→21:06)
[2019-09-21] MEDS: CALCIUM ACETATE 667 MG CAPSULE PO SCH ×3 (07:22→17:13)
[2019-09-21] MEDS: PIPERACILLIN SODIUM/TAZOBACTAM 2.25 GM in DEXTROSE 5% IN WATER 50 ML IV SCH (07:22)
[2019-09-21] MEDS: 0.9 % SODIUM CHLORIDE 10 ML SYRINGE IV SCH ×3 (07:30→21:07)
[2019-09-21 07:47] LABS: Albumin 1.9 gm/dL (3.2-5.2); Albumin/Globulin Ratio 0.5 (1.0-2.3); Chloride 90 mmol/L (96-108); Globulin 3.6 gm/dL (2.2-3.7); Glomerular Filtration Rate 5
[2019-09-21 08:11] LABS: Basophils % (Manual) 1 % (0-2); Eosinophils % (Manual) 7 % (0-7); Lymphocytes % 17 % (15-49); Monocytes % (Manual) 4 % (1-12); Platelet Estimate NORMAL (NORMAL); RBC Morphology NORMAL (NORMAL); Segmented Neutrophils % 71 % (38-78)
[2019-09-21] MEDS: HEPARIN 5,000 UNIT/ML VIAL SQ SCH ×2 (08:25→21:06)
[2019-09-21] MEDS: POLYETHYLENE GLYCOL 3350 17 GM PACKET PO SCH ×2 (08:25→21:06)
[2019-09-21] MEDS: ASPIRIN 81 MG TAB.CHEW PO SCH (08:25)
[2019-09-21] MEDS: VITAMIN B COMPLEX 1 CAPSULE PO SCH (08:25)
[2019-09-21] MEDS: MAGNESIUM OXIDE 400 MG TABLET PO SCH (08:25)
[2019-09-21] MEDS: DOCUSATE SODIUM 100 MG CAPSULE PO SCH ×2 (08:25→21:07)
[2019-09-21] MEDS: MULTIVIT,THER IRON,CA,FA & MIN 1 TABLET PO SCH (08:25)
[2019-09-21] MEDS: Anastrozole [Arimidex] 1 MG PO SCH (08:26)
[2019-09-21] MEDS: Sucroferric Oxyhydroxide [Velphoro] 500 MG PO SCH (08:26)
--- NOTE | 2019-09-21 14:04 | Nephrology Progress Note ---
Subjective Patient information: Note initiated : 09/21/19 at 2:00 pm Service Date, if different from initiated Date: [] Patient: Hedy Pizarro 63 y/o F admitted on 09/17/19 for abd pain x 5 weeks, h-pylori. Chief Complaint: [] Principal diagnosis: Peritonitis Interval history: Seen and evaluated on rounds. Trend in labs is slightly favorable with decreasing WBC, improving serum sodium, and albumin increased but this is after IV albumin 50 gm yesterday before CCPD started. Continue 12 liter exchanges, 2 liter volumes and 6 exchanges O/N to mobilize edema. Albumin IV prior to start of CCPD. Acinetobacter is organism growing so will switch to IV cipro 400 mg IV q 48 hours while in SNF unit for monitoring and PT/OT/strengthening and to recover ability to do her own PD exchanges at home. Upon D/C home I'd recommend cipro 750 mg po q48 until last dose on 10/01/2019 is given. Still think this could be related to cryptogenic and newly noted cirrhosis as this is not a usual bacteria seen in PD related peritonitis. So far, all that is positive is prior Hep A exposure infection in past and immunized to Hep B, Neg Hep C. Serologies for autoimmune etc are pending. No PVT by doppler flow studies. Pertinent ROS: N/A Additional PMFSH (Level 3 Only): N/A Objective - Vital Signs Vital signs: Vital Signs Temp Pulse Resp BP BP Pulse Ox 09/21/19 11:17 36.4 C 78 14 158/69 96 09/21/19 10:17 36.6 C 147/72 09/21/19 07:32 14 97 09/21/19 06:39 36.6 C 76 12 147/72 97 09/21/19 03:45 36.9 C 77 16 151/73 99 09/20/19 23:30 36.8 C 86 16 154/76 97 09/20/19 21:34 37.1 C 152/78 09/20/19 18:40 37.1 C 87 16 152/78 98 09/20/19 15:25 37.2 C 82 16 145/80 95 Intake and Output 09/21/19 09/21/19 09/21/19 05:59 13:59 21:59 Intake Total 240 100 Output Total 100 Balance 140 100 Intake: IV 100 Zosyn 2.25 gm In Dextrose 5% in 100 Water 50 ml @ 100 mls/hr IV Q8H CARLOS Rx#:[id number] Oral 240 Output: Urine Catheter Amount 100 Other: Urine Appearance Clear Urine Color Pale Stool Size Small Stool Color Brown Stool Consistency Loose # Voids 1 # Bowel Movements 1 Intake & Output: Intake & Output 09/21/19 09/21/19 09/21/19 05:59 13:59 21:59 Intake Total 240 100 Output Total 100 Balance 140 100 Intake: IV 100 Zosyn 2.25 gm In Dextrose 5% in 100 Water 50 ml @ 100 mls/hr IV Q8H CARLOS Rx#:[id number] Oral 240 Output: Urine Catheter Amount 100 Other: Urine Appearance Clear Urine Color Pale Stool Size Small Stool Color Brown Stool Consistency Loose # Voids 1 # Bowel Movements 1 - General Appearance General appearance: appears started age, chronically ill, fatigue EENT: ATNC, PERRL, mucous membranes moist, hearing intact, vision intact Neck: no JVD, no carotid bruit, supple Respiratory: kyphosis, clear Cardiology: no murmurs, mid-systolic murmur, no rub, no gallops, edema (Generalized edema / anasarca with Alb < 2.0), regular rate, regular rhythm, normal S1, normal S2 Gastrointestinal: normoactive bowel sounds, no tenderness, no masses (Abd exam improved with ABx and colace/miralax) Integumentary: no rash, warm and dry Neurologic: no focal deficit, no asterixis, alert and oriented x3 Musculoskeletal: no deformities, no erythema, no cyanosis, no clubbing - Lab 09/21/19 05:20 09/21/19 05:20 Most recent lab results Calcium 7.9 mg/dl (8.6-10.4) L 09/21/19 05:20 Phosphorus 4.0 mg/dL (2.7-4.5) 09/21/19 05:20 Magnesium 1.8 mg/dL (1.6-2.5) 09/21/19 05:20 Assessment and Plan (1) Peritonitis 1. Serial Cell count and diff shows marked improvement as does clinical exam 2. Ciprofloxin 400 mg IV q 48 hr while in skilled and if better next week send home on po Cipro to complete 2 weeks of ABx coverage (09/16 thru 10/01/2019) 3. PD fluid cell count tomorrow Status: Acute Priority: High Comment: 1. Serial peritoneal dialysis cell count and differential 2. Stop Vancomycin and Continue Pip-javier pending Sensitivities 3. Inflammatory biomarkers (2) ESRD (end stage renal disease) 1. All 2.5% PD fluid 2. Lower exchange volumes but try to increase ultrafiltration to mobilize her edema 3. Hold BP Rx while trying to promote net negative ultrafiltration 4. PD fluid studies (cytology, cell count and diff, Chemistries ordered) 5. Will probably need to do a PET test if we are unable to mobilize fluid suggesting that she has failure of the peritoneal membrane. 6. Add heparin to the PD fluid due to the large amount of fibrin 7. Constipation protocol as this may be interfering with good flow through her catheter as well Status: Acute Priority: Medium Comment: Low albumin and volume overload (total body anasarca) may require conversion to HD. Stop BP Rx and try to increase U/F with 4.25% PD fluid (3) Micronodular cirrhosis 1. MELD score is high due to SCr which is ESRD not HRS 2. Will see about SAG but not sure how to interpret with PD 3. Serologies for auto-immune, Copper/cereloplasma, ferritin only elevated due to acute inflammation (acute phase reactant), Alpha-1-AT and cytology due to hx of breast CA. 4. May require liver biopsy and or liver/spleen scan to look for "colloid shift" as an outpatient. 5. Dopple of liver to R/O portal vein thrombosis 6. Hepatitis serologies Status: Acute Priority: High Comment: Diagnosis based on CT findings (4) Anemia in ESRD (end-stage renal disease) 1. Iron store ok 2. Blood loss to lab on top of ESRD 3. Start increased Aranesp 100 ug q week Status: Chronic Priority: Medium (5) Hyperparathyroidism due to renal insufficiency 1. Check PTHi 2. Alcitriol +/- sensipar based on Ca, PO4, PTHi levels Status: Chronic Priority: Medium
--- NOTE | 2019-09-21 14:26 | Internal Med Progress Note ---
Medical - PN: Subj Patient information: Note initiated : 09/21/19 at 2:23 pm Service Date, if different from initiated Date: [] Patient: Hedy Pizarro a 63 y/o F admitted on 09/17/19 for abd pain x 5 weeks, h-pylori. Chief Complaint: [] Interval history: Ms. Pizarro is a 63 year old F female with a past history of ESRD on peritoneal dialysis/DM type II/HTN who lives at [facility] and follows up with nephrology clinic at [facility]. Patient over the last 5 weeks has noticed persistent and progressive abdominal pain diffuse in nature without associated fever or chills. Pain is worsened during peritoneal dialysis. She presents to the ER for evaluation. Initial work-up was consistent with bacterial peritonitis. Nephrology was consulted and patient was requested to be admitted for management of peritonitis. Antibiotics were initiated after cultures were drawn Subsequently hospitalist service was consulted for admission At the time of my evaluation patient is alert and oriented. She was able to answer most of the questions. She denies shaking chills/sick contact/lighthea dedness, dizziness. She further denies lower extremity swelling, nausea, vomiting, diarrhea. 09/17-patient doing a lot better. Denies fever chills. Minimal abdominal pain at the catheter site. On intraperitoneal antibiotics per nephrology. White count 12.2. Sodium 126. No additional concerns per nursing staff 09/18-patient doing well. No overnight events. No concerns per staff. No fever chills. Complains of abdominal pain at the catheter insertion site. Denies diarrhea, appetite normal. In good spirits. Continuing a intraperitoneal antibiotic infusion per nephrology. White count 11.3. Sodium 139, peritoneal fluid studies pending 09/19-ongoing antibiotic as per nephrology. Patient clinically improved. Abdominal pain much improved. Ultrasound liver/gallbladder shows cirrhotic liver with mild ascites. Normal hepatopetal portal venous flow. White count 9.5. Ongoing peritoneal dialysis. Sodium 127 09/20-patient doing well. Per nephrology patient will need continued peritoneal antibiotics. Will likely discharge to SNF. However patient refusing to go to SNF. Consider swing bed transition until able to discharge on p.o. antibiotics. Case management to coordinate. Nephrology on board - Constitutional Vitals: Vital Signs Temp Pulse Resp BP Pulse Ox 97.6 F 78 14 158/69 96 09/21/19 11:17 09/21/19 11:17 09/21/19 11:17 09/21/19 11:17 09/21/19 11:17 Period Temp Pulse Resp BP Sys/Loaiza Pulse Ox Last 24 Hr 97.6 F-98.9 F 76-87 12-16 145-158/69-80 95-99 Intake and Output 09/21/19 09/21/19 09/21/19 05:59 13:59 21:59 Intake Total 240 100 Output Total 100 Balance 140 100 Intake & Output: Intake & Output 09/21/19 09/21/19 09/21/19 05:59 13:59 21:59 Intake Total 240 100 Output Total 100 Balance 140 100 Intake: IV 100 Zosyn 2.25 gm In Dextrose 5% in 100 Water 50 ml @ 100 mls/hr IV Q8H CARLOS Rx#:[id number] Oral 240 Output: Urine Catheter Amount 100 Other: Urine Appearance Clear Urine Color Pale Stool Size Small Stool Color Brown Stool Consistency Loose # Voids 1 # Bowel Movements 1 General appearance: no acute distress Exam: Alert oriented Nonlabored breathing No anxiety Nondistended abdomen Medical - PN: Obj Da - Labs CBC & Chem 7: 09/21/19 05:20 09/21/19 05:20 Labs: Abnormal Lab Results 09/21/19 09/21/19 09/20/19 05:20 05:20 05:20 WBC RBC 2.88 L Hgb 8.7 L Hct 27.0 L Seg Neutrophils % Lymphocytes % Myelocytes % RBC Morphology Hypochromasia Sodium 127 L Chloride 90 L 87 L Anion Gap 17.0 H BUN 42 H 45 H Creatinine 7.3 H* 7.2 H* Glucose 192 H 228 H Calcium 7.9 L 7.7 L Phosphorus GGT 85 H 74 H Alkaline Phosphatase 184 H 185 H NT-Pro-B Natriuret Pep Total Protein 5.5 L 5.2 L Albumin 1.9 L 1.5 L Globulin Albumin/Globulin Ratio 0.5 L 0.4 L Ggudx-5-Dbkqqvomklj PTH Intact Hepatitis A Ab Total 09/20/19 09/19/19 09/19/19 05:20 05:20 05:20 WBC RBC 2.77 L Hgb 8.5 L Hct 26.3 L Seg Neutrophils % 82 H Lymphocytes % 12 L Myelocytes % RBC Morphology Hypochromasia Sodium Chloride Anion Gap BUN Creatinine Glucose Calcium Phosphorus GGT Alkaline Phosphatase NT-Pro-B Natriuret Pep 3169.0 H Total Protein Albumin Globulin Albumin/Globulin Ratio Ojzdh-1-Fmjyxkazjsz PTH Intact 156.9 H Hepatitis A Ab Total 09/19/19 09/19/19 09/18/19 05:20 05:20 18:13 WBC 11.3 H RBC 2.86 L Hgb 8.8 L Hct 28.0 L Seg Neutrophils % 93 H Lymphocytes % 3 L Myelocytes % 1 H RBC Morphology Abnorm A Hypochromasia Few A Sodium 129 L Chloride 90 L Anion Gap BUN 47 H Creatinine 7.2 H* Glucose 385 H Calcium 7.6 L Phosphorus 4.8 H GGT 54 H Alkaline Phosphatase 181 H NT-Pro-B Natriuret Pep Total Protein 5.4 L Albumin 1.5 L Globulin 3.9 H Albumin/Globulin Ratio 0.4 L Jqfra-3-Uggdbkylemz PTH Intact Hepatitis A Ab Total Reactive A 09/18/19 09/18/19 18:13 05:20 WBC RBC Hgb Hct Seg Neutrophils % Lymphocytes % Myelocytes % RBC Morphology Hypochromasia Sodium Chloride Anion Gap BUN Creatinine Glucose Calcium Phosphorus GGT Alkaline Phosphatase NT-Pro-B Natriuret Pep Total Protein Albumin Globulin Albumin/Globulin Ratio Evdcf-8-Zwgsfbfcfqb > 300 H PTH Intact Hepatitis A Ab Total Reactive A Meds: Medications Acetaminophen (Tylenol) 650 mg PO Q4-6HP PRN; Protocol PRN Reason: Per Pain Protocol/Fever > 101 Last Admin: 09/18/19 23:13 Dose: 650 mg Documented by: Hydrocodone Bitart/Acetaminophen (Ingraham 7.5/325mg) 1 tab PO Q4-6HP PRN; Protocol PRN Reason: Per Pain Protocol Last Admin: 09/20/19 23:31 Dose: 1 tab Documented by: Aspirin (Aspirin) 81 mg PO DAILY [facility] Last Admin: 09/21/19 08:25 Dose: 81 mg Documented by: Atorvastatin Calcium (Lipitor) 10 mg PO HS [facility] Last Admin: 09/20/19 20:28 Dose: 10 mg Documented by: Bisacodyl (Dulcolax) 10 mg [place] Q2-3DAYS PRN PRN Reason: Constipation Calcitriol (Rocaltrol) 0.25 mcg PO 3XW [facility] Calcium Acetate (Phoslo) 667 mg PO TIDCC [facility] Last Admin: 09/21/19 11:16 Dose: 667 mg Documented by: Citalopram Hydrobromide (Celexa) 20 mg PO HS [facility] Last Admin: 09/20/19 20:28 Dose: 20 mg Documented by: Darbepoetin Jimbo (Aranesp) 150 mcg IV Q7D [facility] Last Admin: 09/18/19 17:27 Dose: 150 mcg Documented by: Dextrose (Dextrose 50%) 0 ml IV UD PRN PRN Reason: Hypoglycemia Diagnostic Test (Pha) (Accu-Chek) 1 each FS ACHS [facility] Last Admin: 09/21/19 11:14 Dose: 1 each Documented by: Docusate Sodium (Colace) 100 mg PO BID [facility] Last Admin: 09/21/19 08:25 Dose: 100 mg Documented by: Ergocalciferol (Drisdol) 50,000 unit PO Q2W [facility] Glucose (Insta-Glucose) 15 gm PO PRN PRN PRN Reason: Hypoglycemia Heparin Sodium (Porcine) (Heparin) 5,000 unit SQ Q12 [facility] Last Admin: 09/21/19 08:25 Dose: 5,000 unit Documented by: Ciprofloxacin (Cipro) 400 mg in 200 mls @ 200 mls/hr IV [id number] [facility]; Protocol Insulin Glargine (Lantus) 5 unit SQ [facility] Last Admin: 09/20/19 20:27 Dose: 5 units Documented by: Insulin Human Lispro (Humalog) 0 unit SQ [facility]; Protocol Last Admin: 09/21/19 11:15 Dose: Not Given Documented by: Iron Carb/Multivit/[place]/Folic Acid (Multivitamin W/Minerals) 1 tab PO DAILY [facility] Last Admin: 09/21/19 08:25 Dose: 1 tab Documented by: Magnesium Oxide (Magnesium Oxide) 400 mg PO DAILY [facility] Last Admin: 09/21/19 08:25 Dose: 400 mg Documented by: Melatonin (Melatonin 3mg Tablet) 3 mg PO HSP PRN PRN Reason: Insomnia Ondansetron HCl (Zofran Odt) 4 mg SL Q4-6HP PRN; Protocol PRN Reason: Nausea And Vomiting Ondansetron HCl (Zofran) 4 mg IV Q4-6HP PRN; Protocol PRN Reason: Nausea And Vomiting Last Admin: 09/21/19 12:57 Dose: 4 mg Documented by: Anastrozole [ (Arimidex] 1 Mg) 1 dose PO DAILY [facility] Last Admin: 09/21/19 08:26 Dose: 1 dose Documented by: Sucroferric Oxyhydroxide [ Velphoro] 500 Mg 1 dose PO DAILY [facility] Last Admin: 09/21/19 08:26 Dose: 1 dose Documented by: Polyethylene Glycol (Miralax) 17 gm PO BID [facility] Last Admin: 09/21/19 08:25 Dose: 17 gm Documented by: Senna/Docusate Sodium (Senna Plus Tablet) 1 tab PO HS [facility] Last Admin: 09/20/19 20:28 Dose: 1 tab Documented by: Sodium Chloride (Saline Flush) 10 ml IV Q8 [facility] Last Admin: 09/21/19 12:59 Dose: 10 ml Documented by: Vitamin B Complex (Vitamin B Complex) 1 cap PO DAILY [facility] Last Admin: 09/21/19 08:25 Dose: 1 cap Documented by: Medical - PN: A/P - Time Spent With Patient Total time spent is greater than 50% in coordination of care (as documented) at patient's floor/unit and/or counseling patient: 25 - 35 minutes (1) Peritonitis Problem details: 1. Serial peritoneal dialysis cell count and differential 2. Stop Vancomycin and Continue Pip-javier pending Sensitivities 3. Inflammatory biomarkers Status: Acute Assessment and plan: * Acute bacterial peritonitis-clinically improving with ongoing antibiotics per nephrology * End-stage renal disease on peritoneal dialysis per nephrology * History of HTN stable on antihypertensives CCB/ARB * History of DM type II continue sliding-scale insulin/CC diet * Cirrhosis-confirmed on ultrasound. Synthetic function stable. Serologies awaited(sent by nephrology) will need outpatient follow-up with GI/possible liver biopsy for further evaluation of etiology. * Hyperlipidemia continue home dose statin * Anxiety disorder stable on citalopram * Anemia of chronic disease stable * Full code * Prophylaxis heparin Plan * Continue antibiotics per nephrology * Continue Pre-existing medical condition management as above * PT OT/nutrition support * Discharge planning per case management likely SNF versus swing bed until able to transition to p.o. antibiotics * Outpatient GI follow-up for liver biopsy/cirrhosis evaluation Current Visit: Yes Medical - PN: Qual - VTE Deep Vein Thrombosis/Pulmonary Embolism Present on Admission: No
[2019-09-21] MEDS ORDERED: CIPROFLOXACIN 400 MG/200 ML BAG IV SCH (15:00)
[2019-09-21] MEDS ORDERED: ALBUMIN HUMAN 25 GM/100 ML BAG IV ONE (19:30)
[2019-09-21] MEDS: INSULIN GLARGINE, HUMAN 1 UNIT/0.01 ML SQ SCH (21:06)
[2019-09-21] MEDS: CITALOPRAM 20 MG TABLET PO SCH (21:07)
[2019-09-21] MEDS: SENNOSIDES/DOCUSATE SODIUM 1 TAB TABLET PO SCH (21:07)
[2019-09-21] MEDS: ATORVASTATIN 20 MG TABLET PO SCH (21:07)
[2019-09-22] MEDS: HYDROCODONE/APAP 7.5/325MG TABLET PO PRN ×4 (03:27→22:16)
[2019-09-22] MEDS: 0.9 % SODIUM CHLORIDE 10 ML SYRINGE IV SCH ×3 (06:43→21:10)
[2019-09-22] MEDS: INSULIN LISPRO 1 UNIT/0.01 ML UNIT SQ SCH ×4 (06:48→21:10)
[2019-09-22 07:04] LABS: Hematocrit 22.5 % (34.1-44.9); Hemoglobin 7.4 g/dL (11.2-15.7); Mean Cell Volume 92.2 fL (80.0-100.0); Mean Corpuscular HGB Conc 32.9 g/dL (31.0-36.0); Mean Platelet Volume 10.1 fL (7.4-10.4); Platelet Count 273 K/mcL (140-440); RBC 2.44 M/mcL (3.59-5.38); Red Cell Distribution Width 12.8 % (11.5-14.5); WBC 7.6 K/mcL (4.50-11.00)
[2019-09-22 07:25] LABS: ALT/SGPT 16 U/l (0-40); AST/SGOT 18 U/l (0-37); Alkaline Phosphatase 138 U/L (39-117); Bilirubin,Direct < 0.2 mg/dL (0.0-0.3); Bilirubin,Total 0.2 mg/dL (0.0-1.0); Blood Urea Nitrogen 34 mg/dl (8-23); Calcium 7.7 mg/dl (8.6-10.4); Carbon Dioxide 26 mmol/L (22-30); Glucose 206 mg/dL (70-105); Lactate Dehydrogenase 194 U/L (94-250); Phosphorous 3.5 mg/dL (2.7-4.5); Triglycerides 109 mg/dl (<150); Uric Acid 5.9 mg/dL (2.5-8.0)
[2019-09-22 08:12] LABS: Albumin 1.7 gm/dL (3.2-5.2); Albumin/Globulin Ratio 0.5 (1.0-2.3); Chloride 91 mmol/L (96-108); Globulin 3.2 gm/dL (2.2-3.7); Glomerular Filtration Rate 5
[2019-09-22] MEDS: DOCUSATE SODIUM 100 MG CAPSULE PO SCH (08:46)
[2019-09-22] MEDS: ASPIRIN 81 MG TAB.CHEW PO SCH (08:46)
[2019-09-22] MEDS: MAGNESIUM OXIDE 400 MG TABLET PO SCH (08:48)
[2019-09-22] MEDS: POLYETHYLENE GLYCOL 3350 17 GM PACKET PO SCH (08:48)
[2019-09-22] MEDS: VITAMIN B COMPLEX 1 CAPSULE PO SCH (08:48)
[2019-09-22] MEDS: CALCIUM ACETATE 667 MG CAPSULE PO SCH ×3 (08:48→17:27)
[2019-09-22] MEDS: MULTIVIT,THER IRON,CA,FA & MIN 1 TABLET PO SCH (08:48)
[2019-09-22] MEDS: HEPARIN 5,000 UNIT/ML VIAL SQ SCH ×2 (08:48→21:10)
[2019-09-22] MEDS: Anastrozole [Arimidex] 1 MG PO SCH (08:49)
[2019-09-22] MEDS: Sucroferric Oxyhydroxide [Velphoro] 500 MG PO SCH (08:49)
--- NOTE | 2019-09-22 09:03 | Nephrology Progress Note ---
Subjective Patient information: Note initiated : 09/22/19 at 9:00 am Service Date, if different from initiated Date: [] Patient: Hedy Pizarro 63 y/o F admitted on 09/17/19 for abd pain x 5 weeks, h-pylori. Chief Complaint: [] Principal diagnosis: Peritonitis Pertinent ROS: Diarrhea Weakness Feels better PD fluid clear Tolerates PD Objective - Vital Signs Vital signs: Vital Signs Temp Pulse Resp BP BP Pulse Ox 09/22/19 07:42 97.9 F 77 18 153/77 98 09/22/19 06:53 16 09/22/19 03:30 98.3 F 83 20 158/77 98 09/21/19 23:25 98.1 F 92 H 16 163/85 100 09/21/19 20:40 98.4 F 79 16 155/80 96 09/21/19 20:36 97.8 F 141/53 09/21/19 16:00 97.8 F 83 16 141/53 96 09/21/19 11:17 97.6 F 78 14 158/69 96 09/21/19 10:17 97.8 F 147/72 Intake and Output 09/21/19 09/22/19 09/22/19 21:59 05:59 13:59 Intake Total 340 240 Output Total 100 Balance 240 240 Intake: Oral 340 240 Output: Void Amount 100 Other: Meal Lunch Percent of Meal Consumed 25% Feeding Ability Independent Urine Appearance Clear Clear Urine Color Straw Pale Urine Odor Normal Stool Size Large Stool Color Brown Black Stool Consistency Loose # Voids 1 1 # Bowel Movements 1 Weight 192 lb 6.4 oz Intake & Output: Intake & Output 09/21/19 09/22/19 09/22/19 21:59 05:59 13:59 Intake Total 340 240 Output Total 100 Balance 240 240 Weight 192 lb 6.4 oz Intake: Oral 340 240 Output: Void Amount 100 Other: Meal Lunch Percent of Meal Consumed 25% Feeding Ability Independent Urine Appearance Clear Clear Urine Color Straw Pale Urine Odor Normal Stool Size Large Stool Color Brown Black Stool Consistency Loose # Voids 1 1 # Bowel Movements 1 - General Appearance General appearance: appears started age, fatigue EENT: mucous membranes moist Neck: supple Respiratory: clear Cardiology: no edema Gastrointestinal: no tenderness Integumentary: warm and dry Neurologic: no focal deficit, alert and oriented x3 Musculoskeletal: no deformities Psychiatric: mood/affect appropriate, cooperative - Lab 09/22/19 05:50 09/22/19 05:50 Most recent lab results Calcium 7.7 mg/dl (8.6-10.4) L 09/22/19 05:50 Phosphorus 3.5 mg/dL (2.7-4.5) 09/22/19 05:50 Magnesium 1.8 mg/dL (1.6-2.5) 09/22/19 05:50 Assessment and Plan (1) Peritonitis associated with peritoneal dialysis PD Fluid culture grew Acinetobacter sp (dawson sensitive). Plan: Ciprofloxacin IV while inpatient, PO after discharge through 10/01/2019. Follow PD fluid cell count and diff Status: Acute Priority: High Qualifiers: Encounter type: subsequent encounter Qualified Code(s): T85.71XD - Infection and inflammatory reaction due to peritoneal dialysis catheter, subsequent encounter (2) End-stage renal disease on peritoneal dialysis CCPD with 2.5%, 2000 ml, 6 exchanges. Status: Chronic Priority: Medium (3) Anemia in ESRD (end-stage renal disease) Continue Aranesp weekly. PRBC for Hb <7.0 or symptomatic. Status: Chronic Priority: Medium (4) Hyponatremia Associated with ESRD and PD. No need for specific treatment. Status: Chronic Priority: Medium
[2019-09-22] MEDS ORDERED: POLYETHYLENE GLYCOL 3350 17 GM PACKET PO PRN (09:12)
[2019-09-22] MEDS ORDERED: SENNOSIDES/DOCUSATE SODIUM 1 TAB TABLET PO PRN (09:12)
[2019-09-22 09:29] LABS: Anisocytosis 1+ (NONE SEEN); Band Neutrophils % 1 % (0-10); Eosinophils % (Manual) 7 % (0-7); Hypochromasia 1+ (NONE SEEN); Lymphocytes % 8 % (15-49); Monocytes % (Manual) 3 % (1-12); Nucleated Red Blood Cells 1 % (0-0); Platelet Estimate NORMAL (NORMAL); RBC Morphology ABNORM (NORMAL); Segmented Neutrophils % 81 % (38-78)
[2019-09-22] MEDS: POTASSIUM CHLORIDE 20 MEQ TABLET PO SCH ×2 (09:31→17:31)
--- NOTE | 2019-09-22 11:33 | Internal Med Progress Note ---
Medical - PN: Subj Patient information: Note initiated : 09/22/19 at 11:32 am Service Date, if different from initiated Date: [] Patient: Hedy Pizarro a 63 y/o F admitted on 09/17/19 for abd pain x 5 weeks, h-pylori. Chief Complaint: [] Interval history: Ms. Pziarro is a 63 year old F female with a past history of ESRD on peritoneal dialysis/DM type II/HTN who lives at [facility] and follows up with nephrology clinic at [facility]. Patient over the last 5 weeks has noticed persistent and progressive abdominal pain diffuse in nature without associated fever or chills. Pain is worsened during peritoneal dialysis. She presents to the ER for evaluation. Initial work-up was consistent with bacterial peritonitis. Nephrology was consulted and patient was requested to be admitted for management of peritonitis. Antibiotics were initiated after cultures were drawn Subsequently hospitalist service was consulted for admission At the time of my evaluation patient is alert and oriented. She was able to answer most of the questions. She denies shaking chills/sick contact/lighthe adedness, dizziness. She further denies lower extremity swelling, nausea, vomiting, diarrhea. 09/17-patient doing a lot better. Denies fever chills. Minimal abdominal pain at the catheter site. On intraperitoneal antibiotics per nephrology. White count 12.2. Sodium 126. No additional concerns per nursing staff 09/18-patient doing well. No overnight events. No concerns per staff. No fever chills. Complains of abdominal pain at the catheter insertion site. Denies diarrhea, appetite normal. In good spirits. Continuing a intraperitoneal antibiotic infusion per nephrology. White count 11.3. Sodium 139, peritoneal fluid studies pending 09/19-ongoing antibiotic as per nephrology. Patient clinically improved. Abdominal pain much improved. Ultrasound liver/gallbladder shows cirrhotic liver with mild ascites. Normal hepatopetal portal venous flow. White count 9.5. Ongoing peritoneal dialysis. Sodium 127 09/20-patient doing well. Per nephrology patient will need continued peritoneal antibiotics. Will likely discharge to SNF. However patient refusing to go to SNF. Consider swing bed transition until able to discharge on p.o. antibiotics. Case management to coordinate. Nephrology on board 09/21-patient doing well. No overnight events. Likely discharge in 24 hours on oral antibiotics as per nephrology. No overnight fever chills. No additional concerns per nursing staff. - Constitutional Vitals: Vital Signs Temp Pulse Resp BP Pulse Ox 97.9 F 77 18 153/77 98 09/22/19 09:14 09/22/19 07:42 09/22/19 07:42 09/22/19 09:14 09/22/19 07:42 Period Temp Pulse Resp BP Sys/Loaiza Pulse Ox Last 24 Hr 97.8 F-98.4 F 77-92 16-20 141-163/53-85 96-100 Intake and Output 09/21/19 09/22/19 09/22/19 21:59 05:59 13:59 Intake Total 340 240 200 Output Total 100 Balance 240 240 200 Weight 192 lb 6.4 oz Intake & Output: Intake & Output 09/21/19 09/22/19 09/22/19 21:59 05:59 13:59 Intake Total 340 240 200 Output Total 100 Balance 240 240 200 Weight 192 lb 6.4 oz Intake: Oral 340 240 200 Output: Void Amount 100 Other: Meal Lunch Breakfast Percent of Meal Consumed 25% 50% Feeding Ability Independent Independent Urine Appearance Clear Clear Urine Color Straw Pale Urine Odor Normal Stool Size Large Stool Color Brown Black Stool Consistency Loose # Voids 1 1 # Bowel Movements 1 General appearance: no acute distress Exam: Alert oriented Nonlabored breathing Nontender abdomen No anxiety Medical - PN: Obj Da - Labs CBC & Chem 7: 09/22/19 05:50 09/22/19 05:50 Labs: Abnormal Lab Results 09/22/19 09/22/19 09/21/19 05:50 05:50 05:20 RBC 2.44 L Hgb 7.4 L Hct 22.5 L Seg Neutrophils % 81 H Lymphocytes % 8 L Nucleated RBCs 1 H RBC Morphology Abnorm A Hypochromasia 1+ A Anisocytosis 1+ A Sodium 130 L Chloride 91 L 90 L Anion Gap 17.0 H BUN 34 H 42 H Creatinine 7.2 H* 7.3 H* Glucose 206 H 192 H Calcium 7.7 L 7.9 L GGT 69 H 85 H Alkaline Phosphatase 138 H 184 H Total Protein 4.9 L 5.5 L Albumin 1.7 L 1.9 L Albumin/Globulin Ratio 0.5 L 0.5 L Miyji-7-Srnwvdtjmgq Hepatitis A Ab Total 09/21/19 09/20/19 09/20/19 05:20 05:20 05:20 RBC 2.88 L 2.77 L Hgb 8.7 L 8.5 L Hct 27.0 L 26.3 L Seg Neutrophils % 82 H Lymphocytes % 12 L Nucleated RBCs RBC Morphology Hypochromasia Anisocytosis Sodium 127 L Chloride 87 L Anion Gap BUN 45 H Creatinine 7.2 H* Glucose 228 H Calcium 7.7 L GGT 74 H Alkaline Phosphatase 185 H Total Protein 5.2 L Albumin 1.5 L Albumin/Globulin Ratio 0.4 L Qsxkk-9-Wsdcwbhbjwz Hepatitis A Ab Total 09/18/19 09/18/19 09/18/19 18:13 18:13 05:20 RBC Hgb Hct Seg Neutrophils % Lymphocytes % Nucleated RBCs RBC Morphology Hypochromasia Anisocytosis Sodium Chloride Anion Gap BUN Creatinine Glucose Calcium GGT Alkaline Phosphatase Total Protein Albumin Albumin/Globulin Ratio Onjxd-5-Futnkqxqpzp > 300 H Hepatitis A Ab Total Reactive A Reactive A Meds: Medications Acetaminophen (Tylenol) 650 mg PO Q4-6HP PRN; Protocol PRN Reason: Per Pain Protocol/Fever > 101 Last Admin: 09/18/19 23:13 Dose: 650 mg Documented by: Hydrocodone Bitart/Acetaminophen ([place] 7.5/325mg) 1 tab PO Q4-6HP PRN; Protocol PRN Reason: Per Pain Protocol Last Admin: 09/22/19 09:31 Dose: 1 tab Documented by: Aspirin (Aspirin) 81 mg PO DAILY [facility] Last Admin: 09/22/19 08:46 Dose: 81 mg Documented by: Atorvastatin Calcium (Lipitor) 10 mg PO [facility] Last Admin: 09/21/19 21:07 Dose: 10 mg Documented by: Bisacodyl (Dulcolax) 10 mg MO Q2-3DAYS PRN PRN Reason: Constipation Calcitriol (Rocaltrol) 0.25 mcg PO 3XW [facility] Calcium Acetate (Phoslo) 667 mg PO TIDCC [facility] Last Admin: 09/22/19 08:48 Dose: 667 mg Documented by: Citalopram Hydrobromide (Celexa) 20 mg PO HS [facility] Last Admin: 09/21/19 21:07 Dose: 20 mg Documented by: Darbepoetin Jimbo (Aranesp) 150 mcg IV Q7D [facility] Last Admin: 09/18/19 17:27 Dose: 150 mcg Documented by: Dextrose (Dextrose 50%) 0 ml IV UD PRN PRN Reason: Hypoglycemia Diagnostic Test (Pha) (Accu-Chek) 1 each FS ACHS [facility] Last Admin: 09/22/19 06:43 Dose: 1 each Documented by: Ergocalciferol (Drisdol) 50,000 unit PO Q2W [facility] Glucose (Insta-Glucose) 15 gm PO PRN PRN PRN Reason: Hypoglycemia Heparin Sodium (Porcine) (Heparin) 5,000 unit SQ Q12 [facility] Last Admin: 09/22/19 08:48 Dose: 5,000 unit Documented by: Ciprofloxacin (Cipro) 400 mg in 200 mls @ 200 mls/hr IV Q48H [facility]; Protocol Last Admin: 09/21/19 15:10 Dose: 200 mls/hr Documented by: Insulin Glargine (Lantus) 5 unit SQ HS [facility] Last Admin: 09/21/19 21:06 Dose: 5 units Documented by: Insulin Human Lispro (Humalog) 0 unit SQ [facility]; Protocol Last Admin: 09/22/19 06:48 Dose: 3 units Documented by: Iron Carb/Multivit/Seguin/Folic Acid (Multivitamin W/Minerals) 1 tab PO DAILY [facility] Last Admin: 09/22/19 08:48 Dose: 1 tab Documented by: Magnesium Oxide (Magnesium Oxide) 400 mg PO DAILY [facility] Last Admin: 09/22/19 08:48 Dose: 400 mg Documented by: Melatonin (Melatonin 3mg Tablet) 3 mg PO HSP PRN PRN Reason: Insomnia Ondansetron HCl (Zofran Odt) 4 mg SL Q4-6HP PRN; Protocol PRN Reason: Nausea And Vomiting Ondansetron HCl (Zofran) 4 mg IV Q4-6HP PRN; Protocol PRN Reason: Nausea And Vomiting Last Admin: 09/21/19 12:57 Dose: 4 mg Documented by: Anastrozole [ (Arimidex] 1 Mg) 1 dose PO DAILY [facility] Last Admin: 09/22/19 08:49 Dose: 1 dose Documented by: Sucroferric Oxyhydroxide [ Velphoro] 500 Mg 1 dose PO DAILY [facility] Last Admin: 09/22/19 08:49 Dose: 1 dose Documented by: Polyethylene Glycol (Miralax) 17 gm PO BIDP PRN PRN Reason: Constipation Potassium Chloride (Kdur) 20 meq PO BIDCC [facility] Last Admin: 09/22/19 09:31 Dose: 20 meq Documented by: Senna/Docusate Sodium (Senna Plus Tablet) 1 tab PO HSP PRN PRN Reason: Constipation Sodium Chloride (Saline Flush) 10 ml IV Q8 [facility] Last Admin: 09/22/19 06:43 Dose: 10 ml Documented by: Vitamin B Complex (Vitamin B Complex) 1 cap PO DAILY [facility] Last Admin: 09/22/19 08:48 Dose: 1 cap Documented by: Medical - PN: A/P - Time Spent With Patient Total time spent is greater than 50% in coordination of care (as documented) at patient's floor/unit and/or counseling patient: 15 - 24 minutes (1) Peritonitis Problem details: 1. Serial peritoneal dialysis cell count and differential 2. Stop Vancomycin and Continue Pip-javier pending Sensitivities 3. Inflammatory biomarkers Status: Acute Assessment and plan: * Acute bacterial peritonitis-clinically improving with ongoing antibiotics per nephrology. Will discharge in 24 hours on oral antibiotics as per nephrology * End-stage renal disease on peritoneal dialysis per nephrology * History of HTN stable on antihypertensives CCB/ARB * History of DM type II continue sliding-scale insulin/CC diet * Cirrhosis-confirmed on ultrasound. Synthetic function stable. schedule outpatient follow-up with GI/possible liver biopsy for further evaluation of etiology. * Hyperlipidemia continue home dose statin * Anxiety disorder stable on citalopram * Anemia of chronic disease stable * Full code * Prophylaxis heparin Plan * Continue antibiotics per nephrology * Continue Pre-existing medical condition management as above * PT OT/nutrition support * Patient wants to go home and likely discharge in 24 hours on oral antibiotics per nephrology * Outpatient GI follow-up for liver biopsy/cirrhosis evaluation Current Visit: Yes Medical - PN: Qual - VTE Deep Vein Thrombosis/Pulmonary Embolism Present on Admission: No
[2019-09-22 16:18] LABS: Nucleated Cel,Peritoneal Fluid 23 /cumm; RBC,Peritoneal Fluid < 50000 /cumm
[2019-09-22 16:22] LABS: Macrophages,Peritoneal Fluid 41 %; Mesothelial,Peritoneal Fluid 6 %; Neutrophils,Peritoneal Fluid 26 %
[2019-09-22] MEDS: ATORVASTATIN 20 MG TABLET PO SCH (21:09)
[2019-09-22] MEDS: CITALOPRAM 20 MG TABLET PO SCH (21:09)
[2019-09-22] MEDS: INSULIN GLARGINE, HUMAN 1 UNIT/0.01 ML SQ SCH (21:10)
[2019-09-23] MEDS: HYDROCODONE/APAP 7.5/325MG TABLET PO PRN ×2 (04:05→07:58)
[2019-09-23] MEDS: 0.9 % SODIUM CHLORIDE 10 ML SYRINGE IV SCH (06:38)
[2019-09-23] MEDS: CALCIUM ACETATE 667 MG CAPSULE PO SCH (07:34)
[2019-09-23] MEDS: INSULIN LISPRO 1 UNIT/0.01 ML UNIT SQ SCH (07:34)
[2019-09-23] MEDS: POTASSIUM CHLORIDE 20 MEQ TABLET PO SCH (07:34)
[2019-09-23] MEDS: MAGNESIUM OXIDE 400 MG TABLET PO SCH (07:58)
[2019-09-23] MEDS: VITAMIN B COMPLEX 1 CAPSULE PO SCH (07:58)
[2019-09-23] MEDS: ASPIRIN 81 MG TAB.CHEW PO SCH (07:59)
[2019-09-23] MEDS: MULTIVIT,THER IRON,CA,FA & MIN 1 TABLET PO SCH (07:59)
[2019-09-23] MEDS: HEPARIN 5,000 UNIT/ML VIAL SQ SCH (07:59)
[2019-09-23] MEDS: Anastrozole [Arimidex] 1 MG PO SCH (08:03)
[2019-09-23] MEDS: Sucroferric Oxyhydroxide [Velphoro] 500 MG PO SCH (08:03)
--- NOTE | 2019-09-23 09:37 | Nephrology Progress Note ---
Subjective Patient information: Note initiated : 09/23/19 at 9:35 am Patient: Hedy Pizarro 63 y/o F admitted on 09/17/19 for abd pain x 5 weeks, h-pylori. Chief Complaint: Abdominal pain Principal diagnosis: Peritonitis Pertinent ROS: No nausea No abdominal pain Tolerates PD Feels better Objective - Vital Signs Vital signs: Vital Signs Temp Pulse Resp BP BP Pulse Ox 09/23/19 08:37 98.7 F 141/63 09/23/19 06:44 98.7 F 74 14 141/63 98 09/23/19 04:05 98.8 F 79 16 162/75 99 09/22/19 23:55 99.1 F H 81 20 157/76 98 09/22/19 20:37 98.7 F 158/80 09/22/19 19:00 98.7 F 88 16 158/80 98 09/22/19 15:41 97.9 F 81 16 161/84 99 09/22/19 12:00 98.3 F 88 18 172/79 97 Intake and Output 09/22/19 09/23/19 09/23/19 21:59 05:59 13:59 Intake Total 710 120 Balance 710 120 Intake: IV 200 Oral 510 120 Other: Meal Dinner Percent of Meal Consumed 50% Feeding Ability Independent # Voids 1 Weight 187 lb 12.8 oz Intake & Output: Intake & Output 09/22/19 09/23/19 09/23/19 21:59 05:59 13:59 Intake Total 710 120 Balance 710 120 Weight 187 lb 12.8 oz Intake: IV 200 Oral 510 120 Other: Meal Dinner Percent of Meal Consumed 50% Feeding Ability Independent # Voids 1 - General Appearance General appearance: chronically ill, fatigue EENT: mucous membranes moist Neck: no JVD Respiratory: clear Cardiology: no edema Gastrointestinal: no tenderness Integumentary: warm and dry Neurologic: no focal deficit, alert and oriented x3 Musculoskeletal: no deformities Psychiatric: mood/affect appropriate, cooperative - Lab 09/22/19 05:50 09/22/19 05:50 Most recent lab results Calcium 7.7 mg/dl (8.6-10.4) L 09/22/19 05:50 Phosphorus 3.5 mg/dL (2.7-4.5) 09/22/19 05:50 Magnesium 1.8 mg/dL (1.6-2.5) 09/22/19 05:50 Assessment and Plan (1) Peritonitis associated with peritoneal dialysis PD Fluid culture grew Acinetobacter sp (dawson sensitive). PD fluid neutrophil count decreased from 80% to 26% from 09/19 to 09/21. Plan: Ciprofloxacin 400 mg PO every 48 hours after discharge through 10/01/2019. Status: Acute Priority: High Qualifiers: Encounter type: subsequent encounter Qualified Code(s): T85.71XD - Inf ection and inflammatory reaction due to peritoneal dialysis catheter, subsequent encounter (2) End-stage renal disease on peritoneal dialysis Continue CCPD with home prescription after discharge. Status: Chronic Priority: Medium (3) Anemia in ESRD (end-stage renal disease) Continue Aranesp weekly as outpatient. PRBC for Hb <7.0 or symptomatic. Status: Chronic Priority: Medium (4) Hyponatremia Associated with ESRD and PD. No need for specific treatment. Status: Chronic Priority: Medium
--- NOTE | 2019-09-23 09:39 | Discharge Summary ---
Medical - DS: Prov Patient information: Note initiated : 09/23/19 at 9:36 am Service Date, if different from initiated Date: [] Patient: Hedy Pizarro 63 y/o F admitted on 09/17/19 for abd pain x 5 weeks, h-pylori. Chief Complaint: [] Date of admission: 09/17/19 15:33 Discharge date: 09/23/19 Primary care physician: PAMELA Orozco Consults: 09/17/19 Consult to Physician [CONS] Stat Comment: Consulting Provider: Moris Calzada Reason For Exam: Physician to Consult Consult to Physician [CONS] Stat Comment: Consulting Provider: Guera Black Reason For Exam: Physician to Consult Medical - DS: Meds - Discharge Medications Prescriptions: Ciprofloxacin HCl 750 mg PO Q48 #5 tab Prescription Printed Active and Home Medications: Home Medications amlodipine 10 mg tablet 5 mg PO HS tab 09/30/14 [History Confirmed 09/17/19 Last Taken 09/17/19 06:00] citalopram 10 mg tablet 20 mg PO HS tab 09/30/14 [History Confirmed 09/17/19 Last Taken 09/16/19 20:30] cyanocobalamin (vitamin B-12) 2,500 mcg sublingual tablet 2,500 mcg SUBLINGUAL QDAY tab 09/30/14 [History Confirmed 09/17/19 Last Taken 09/17/19 06:00] ferrous sulfate 325 mg (65 mg iron) tablet 325 mg PO 2-3XW 02/03/16 [History Confirmed 09/17/19 Last Taken 09/16/19 20:30] PhosLo 667 mg capsule 667 mg PO .tid with meals #90 cap NS 03/23/16 [Rx C onfirmed 09/17/19 Last Taken 09/17/19 06:00] furosemide 40 mg tablet 80 mg PO QAM #60 tab 06/27/18 [Rx Confirmed 09/17/19 Last Taken 09/17/19 06:00] losartan 100 mg tablet 100 mg PO DAILY #30 tab 06/27/18 [Rx Confirmed 09/17/19 Last Taken 09/09/18] Anastrozole [Arimidex] 1 mg PO DAILY 09/08/19 [History Confirmed 09/17/19 Last Taken 09/17/19 06:00] Cholecalciferol (Vitamin D3) [D3 Dots] 2,000 unit PO DAILY 09/08/19 [History Confirmed 09/17/19 Last Taken 09/17/19 06:00] Clarithromycin 250 mg PO .COMPLEX 09/08/19 [History Confirmed 09/17/19 Last Taken 09/17/19 06:00] Docusate Sodium [Doc-Q-Lace] 100 mg PO BID 09/08/19 [History Confirmed 09/17/19 Last Taken 09/14/19] Magnesium Oxide 420 mg PO DAILY 09/08/19 [History Confirmed 09/17/19 Last Taken 09/17/19 06:00] Robson-3 Acid Ethyl Esters [Triklo] 2 cap PO BID 09/08/19 [History Confirmed 09/17/19 Last Taken 09/16/19 20:30] Sucroferric Oxyhydroxide [Velphoro] 500 mg PO DAILY 09/08/19 [History Confirmed 09/17/19 Last Taken 09/16/19 20:30] Vit B Cmplx 3/FA/Vit C/Biotin [Nephro-Meme Rx Tablet] 1 each PO DAILY 09/08/19 [History Confirmed 09/17/19 Last Taken 09/17/19 06:00] Calcitriol [Rocaltrol] 0.25 mcg PO 3XW 09/17/19 [History Confirmed 09/17/19 Last Taken 09/17/19 06:00] Ergocalciferol (Vitamin D2) [Ergocalciferol] 50,000 unit PO Q2W 09/17/19 [History Confirmed 09/17/19 Last Taken 09/12/19] Protein Supplement [Prosource] 275 gm PO DAILY 09/17/19 [History Confirmed 09/17/19 Last Taken 09/17/19 06:00] Rosuvastatin Calcium [Crestor] 5 mg PO HS 09/17/19 [History Confirmed 09/17/19 Last Taken 08/27/19] glipiZIDE [Glipizide ER] 5 mg PO QDAY 09/17/19 [History Confirmed 09/17/19 Last Taken 09/17/19 06:00] Aspirin 81 mg PO DAILY tab.chew 09/23/19 [Rx Last Taken Unknown] Ciprofloxacin HCl 750 mg PO Q48 #5 tab 09/23/19 [Rx Last Taken Unknown] Medical - DS: Hosp Hospital Course: Discharge diagnosis * Acute bacterial peritonitis-clinically improving with ongoing antibiotics per nephrology. Discharging on oral ciprofloxacin every 48 hours until 09/30 * End-stage renal disease on peritoneal dialysis per nephrology * History of HTN stable on antihypertensives CCB/ARB * History of DM type II continue sliding-scale insulin/CC diet * Cirrhosis-confirmed on ultrasound. Synthetic function stable. schedule outpatient follow-up with GI/possible liver biopsy for further evaluation of etiology. * Hyperlipidemia continue home dose statin * Anxiety disorder stable on citalopram * Anemia of chronic kidney disease disease stable. Managed by nephrology Brief hospital course Ms. Pizarro is a 63 year old F female with a past history of ESRD on peritoneal dialysis/DM type II/HTN who lives at [facility] and follows up with nephrology clinic at [facility]. Patient over the last 5 weeks has noticed persistent and progressive abdominal pain diffuse in nature without associated fever or chills. Pain is worsened during peritoneal dialysis. She presents to the ER for evaluation. Initial work-up was consistent with bacterial peritonitis. Nephrology was consulted and patient was requested to be admitted for management of peritonitis. Antibiotics were initiated after cultures were drawn Subsequently hospitalist service was consulted for admission At the time of my evaluation patient is alert and oriented. She was able to answer most of the questions. She denies shaking chills/sick contact/lightheadedness, dizziness. She further denies lower extremity swelling, nausea, vomiting, diarrhea. 09/17-patient doing a lot better. Denies fever chills. Minimal abdominal pain at the catheter site. On intraperitoneal antibiotics per nephrology. White count 12.2. Sodium 126. No additional concerns per nursing staff 09/18-patient doing well. No overnight events. No concerns per staff. No fever chills. Complains of abdominal pain at the catheter insertion site. Denies diarrhea, appetite normal. In good spirits. Continuing a intraperitoneal antibiotic infusion per nephrology. White count 11.3. Sodium 139, peritoneal fluid studies pending 09/19-ongoing antibiotic as per nephrology. Patient clinically improved. Abdominal pain much improved. Ultrasound liver/gallbladder shows cirrhotic liver with mild ascites. Normal hepatopetal portal venous flow. White count 9.5. Ongoing peritoneal dialysis. Sodium 127 09/20-patient doing well. Per nephrology patient will need continued peritoneal antibiotics. Will likely discharge to SNF. However patient refusing to go to SNF. Consider swing bed transition until able to discharge on p.o. antibiotics. Case management to coordinate. Nephrology on board 09/21-patient doing well. No overnight events. Likely discharge in 24 hours on oral antibiotics as per nephrology. No overnight fever chills. No additional concerns per nursing staff. 09/22 discharging home on oral ciprofloxacin as per nephrology recommendation 750 every other day until September 30. Would also follow-up with nephrology/GI for evaluation of liver cirrhosis.. Detailed instructions below Discharge diagnosis: . - Time Spent with Patient Total time spent providing and/or coordinating discharge services: Greater than 30 minutes Medical - DS: Exam - Constitutional Vitals: Vital Signs Temp Pulse Resp BP BP Pulse Ox 09/23/19 08:37 98.7 F 141/63 09/23/19 06:44 98.7 F 74 14 141/63 98 09/23/19 04:05 98.8 F 79 16 162/75 99 09/22/19 23:55 99.1 F H 81 20 157/76 98 09/22/19 20:37 98.7 F 158/80 09/22/19 19:00 98.7 F 88 16 158/80 98 09/22/19 15:41 97.9 F 81 16 161/84 99 09/22/19 12:00 98.3 F 88 18 172/79 97 Intake and Output 09/22/19 09/23/19 09/23/19 21:59 05:59 13:59 Intake Total 710 120 Balance 710 120 Intake: IV 200 Oral 510 120 Other: Meal Dinner Percent of Meal Consumed 50% Feeding Ability Independent # Voids 1 Weight 187 lb 12.8 oz Medical - DS: Data Labs on day of discharge: Labs from last 24 hours 09/22/19 08:55 Peritoneal Source Peritoneal Peritoneal Color Colorless Peritoneal Appearance Clear Peritoneal RBC < [id number] 100 Periton Nuc Cells 23 Periton Neutrophils 26 Periton Lymphocytes 27 Periton Mesothelial 6 Periton Macrophages 41 Medical - DS: A/P - Patient/Caregiver Discharge Instructions Activity: increase activity as tolerated Diet: Renal/Consistent Carbs Additional Instructions: Follow-up PCP and nephrology as scheduled Follow-up with GI for evaluation of liver cirrhosis in 1 to 2 weeks I recommend primary care physician to check CBC BMP UA as a posthospital follow- up in 1 week. Oral ciprofloxacin 750 mg every 48 hour through 09/30 Continue aggressive bowel regimen to prevent constipation Continue fall precautions Return to ER if worsening fever chills shortness of breath, diarrhea, bleeding Review risk and side effect profile of medications including antibiotics. Side effect may include mild to severe reaction including rash, diarrhea, cdiff and even which can be prevented by close follow-up with PCP and monitoring for side effects Continue diet and activity as advised Discussed importance of medication adherence Please review medication list with patient prior to discharge Please schedule follow-up with PCP/Providers prior to discharge and provide printouts Prescriptions: Ciprofloxacin HCl 750 mg PO Q48 #5 tab Prescription Printed - Problem Maintenance (1) Peritonitis Status: Acute Comment: 1. Serial peritoneal dialysis cell count and differential 2. Stop Vancomycin and Continue Pip-javier pending Sensitivities 3. Inflammatory biomarkers - Follow up Plan Follow up with: Berto Kearney ARNP [Primary Care Provider] - Disposition: Home, Self-Care Prognosis: Fair Rehab Potential: Fair I certify that the patient requires SNF services: No Overall status at discharge: patient is progressing back to baseline Medical - DS: Qual - VTE Deep Vein Thrombosis/Pulmonary Embolism Present on Admission: No
[2019-09-26] MEDS ORDERED: ERGOCALCIFEROL (VITAMIN D2) 50,000 UNIT CAPSULE PO SCH (09:00)
== END 2019-09-23 10:47 | disposition home or self-care (01) | DRG 371 ==
LOC: ED 09:42 → MEDSUR 15:33
PROVIDERS: ADMIT Internal Medicine; ATTEND Internal Medicine

== ENCOUNTER 2019-10-02 11:40 | Inpatient (IN) ==
[2019-10-02] MEDS ORDERED: IOPAMIDOL 100 ML BOTTLE IV ONE (11:41)
[2019-10-02 12:28] LABS: POC Blood Urea Nitrogen 53 mg/dl (8-23); POC CO2 30 mmol/L (22-30); POC Calcium, Ionized 1.12 mmol/L (1.16-1.32); POC Chloride 91 mmol/L (96-108); POC Creatinine 7.9 mg/dl (0.6-1.1); POC Glucose, Random 130 mg/dL (70-105); POC Potassium 2.8 mmol/L (3.3-5.1); POC Sodium 134 mmol/L (133-145)
[2019-10-02 12:59] LABS: Appearance,Urine CLEAR; Bacteria,Urine FEW /hpf (0); Bilirubin,Urine NEG (NEG); Color,Urine YELLOW; Culture Indicated,Urine NO; Glucose,Urine (UA) NEGATIVE (NEG); Ketones,Urine NEG (NEG); Leukocyte Esterase,Urine NEG /uL (NEG); Mucus,Urine FEW /hpf (0); Nitrate,Urine NEG (NEG); Protein,Urine 100 mg/dL (NEG); Specific Gravity,Urine 1.016 (1.000-1.035); Urine Blood NEG mg/dL (<0.03); Urine RBC 1 /hpf (0-1); Urine Squamous Epithelial Cell 6 /hpf (0-4); Urine WBC 6 /hpf (0-4); Urobilinogen,Urine NEG (NEG)
[2019-10-02] MEDS ORDERED: ONDANSETRON 4 MG/2 ML VIAL IV ONE (13:04)
[2019-10-02] MEDS ORDERED: HYDROmorphone 1 MG/ML SYRINGE IV ONE ×2 (13:04→14:50)
[2019-10-02] MEDS ORDERED: POTASSIUM CHLORIDE 20 MEQ in DEXTROSE 5% IN WATER 250 ML IV ONE (13:10)
[2019-10-02 13:38] LABS: Basophils # (Auto) 0.04 K/mcL (0.00-0.30); Basophils % (Auto) 0.5 % (0.0-2.0); Eosinophils # (Auto) 0.23 K/mcL (0.00-0.70); Granulocytes % (Auto) 81.5 % (38.0-78.0); Hematocrit 30.3 % (34.1-44.9); Hemoglobin 9.6 g/dL (11.2-15.7); Lymphocytes # (Auto) 0.58 K/mcL (1.50-4.80); Lymphocytes % (Auto) 7.6 % (15.5-49.0); Mean Cell Volume 98.4 fL (80.0-100.0); Mean Corpuscular HGB Conc 31.7 g/dL (31.0-36.0); Mean Platelet Volume 10.5 fL (7.4-10.4); Monocytes # (Auto) 0.56 K/mcL (0.10-0.90); Monocytes % (Auto) 7.4 % (1.0-12.0); Platelet Count 259 K/mcL (140-440); RBC 3.08 M/mcL (3.59-5.38); Red Cell Distribution Width 15.5 % (11.5-14.5); WBC 7.6 K/mcL (4.50-11.00)
[2019-10-02 13:53] LABS: ALT/SGPT 12 U/l (0-40); AST/SGOT 22 U/l (0-37); Albumin 2.2 gm/dL (3.2-5.2); Alkaline Phosphatase 105 U/L (39-117); Amylase 12 U/L (28-100); Bilirubin,Total 0.2 mg/dL (0.0-1.0); Calcium 8.4 mg/dl (8.6-10.4); Carbon Dioxide 30 mmol/L (22-30); Glucose 132 mg/dL (70-105)
[2019-10-02 13:55] LABS: Albumin/Globulin Ratio 0.6 (1.0-2.3); Blood Urea Nitrogen 61 mg/dl (8-23); Chloride 92 mmol/L (96-108); Globulin 3.9 gm/dL (2.2-3.7); Glomerular Filtration Rate 5
[2019-10-02 14:40] LABS: Nucleated Cel,Peritoneal Fluid 3461 /cumm; RBC,Peritoneal Fluid < 50000 /cumm
[2019-10-02] MEDS: HYDROmorphone 0.5 MG/0.5 ML SYRINGE IV PRN ×2 (14:54→17:29)
--- NOTE | 2019-10-02 15:06 | Emergency Department Note ---
Abdominal Pain HPI General Chief Complaint: Abdominal Pain Stated Complaint: right sided abdominal pain Time Seen by Provider: 10/02/19 12:11 Source: patient Mode of arrival: wheelchair Limitations: no limitations History of Present Illness HPI Narrative: 63-year-old female presents with severe upper abdominal pain, worse on the right upper quadrant. States she has had this for 18 weeks constantly but is definitely worse at sometimes. Is been worse again the last 12 to 24 hours. She was recently admitted with peritonitis as she is a dialysis patient with peritoneal dialysis. She was admitted for 6 days and was doing better so they sent her home on antibiotics. She is now worse again. States chills last night, unknown fever. No nausea, vomiting, or diarrhea. Is requesting pain medication. No dysuria or frequency. No home treatments. Her gold charmer is Dr. Black Related Data Home Medications Medication Instructions Recorded Confirmed amlodipine 10 mg tablet 5 mg PO HS tab 09/30/14 10/02/19 citalopram 10 mg tablet 20 mg PO HS tab 09/30/14 10/02/19 cyanocobalamin (vitamin B-12) 2,500 mcg SUBLINGUAL QDAY tab 09/30/14 10/02/19 2,500 mcg sublingual tablet ferrous sulfate 325 mg (65 mg 325 mg PO 2-3XW 02/03/16 10/02/19 iron) tablet anastrozole 1 mg PO DAILY 09/08/19 10/02/19 cholecalciferol (vitamin D3) 2,000 unit PO DAILY 09/08/19 10/02/19 clarithromycin 250 mg PO .COMPLEX 09/08/19 10/02/19 docusate sodium 100 mg PO BID 09/08/19 10/02/19 magnesium oxide 420 mg PO DAILY 09/08/19 10/02/19 omega-3 acid ethyl esters 2 cap PO BID 09/08/19 10/02/19 sucroferric oxyhydroxide 500 mg PO DAILY 09/08/19 10/02/19 vit B comp no.5-snbxd-N-biotin 1 each PO DAILY 09/08/19 10/02/19 calcitriol 0.25 mcg PO 3XW 09/17/19 10/02/19 ergocalciferol (vitamin D2) 50,000 unit PO Q2W 09/17/19 10/02/19 glipizide 5 mg PO QDAY 09/17/19 10/02/19 protein 275 gm PO DAILY 09/17/19 10/02/19 rosuvastatin 5 mg PO HS 09/17/19 10/02/19 Previous Rx's Medication Instructions Recorded PhosLo 667 mg capsule 667 mg PO .tid with meals #90 cap 03/23/16 NS furosemide 40 mg tablet 80 mg PO QAM #60 tab 06/27/18 losartan 100 mg tablet 100 mg PO DAILY #30 tab 06/27/18 aspirin 81 mg PO DAILY tab.chew 09/23/19 ciprofloxacin HCl 750 mg PO Q48 #5 tab 09/23/19 Allergies Allergy/AdvReac Type Severity Reaction Status Date / Time lisinopril AdvReac Mild Cough Verified 10/02/19 11:46 Review of Systems All systems ED: reviewed and negative except as stated. [facility] Medical/Surgical/Family History All Active Problems Abdominal pain (Acute) Peritonitis (Acute) ESRD (end stage renal disease) (Acute) Micronodular cirrhosis (Acute) Anemia in ESRD (end-stage renal disease) (Chronic) End-stage renal disease on peritoneal dialysis (Chronic) Peritonitis associated with peritoneal dialysis (Acute) Hyponatremia (Chronic) Peritonitis (Acute) Intractable abdominal pain (Acute) Hypokalemia (Acute) Chronic hypertension (Chronic) Diabetes mellitus (Chronic) Peritoneal dialysis catheter in situ (Chronic) Chronic kidney disease (Chronic) 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) Breast cancer (Chronic) Acute cervical sprain (Acute) Right-sided chest wall pain (Acute) Hyperparathyroidism due to renal insufficiency (Chronic) H/O colonoscopy (Acute 08/14/07) Anemia (Chronic) History of cholecystectomy (Acute) Secondary hyperparathyroidism of renal origin (Chronic 06/13/13) Proteinuria (Acute) Peripheral neuropathy (Acute) Obesity (Acute) Heart murmur, systolic (Acute) Metabolic acidosis (Chronic) Hypertensive renal disease (Chronic 06/13/13) Hypertension, essential (Acute) Hyperlipemia (Acute) Heart murmur (Acute) Diabetes mellitus, type II (Chronic) 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) Degenerative joint disease (Acute) Carpal tunnel syndrome (Acute) Chronic back pain (Acute) Anemia, iron deficiency (Chronic 06/13/13) Anemia in chronic kidney disease (CKD) (Acute) Medical History Anemia (Chronic) Anemia in chronic kidney disease (CKD) (Acute) Anemia, iron deficiency (Chronic 06/13/13) Breast cancer (Chronic) Carpal tunnel syndrome (Acute) Chronic back pain (Acute) Chronic hypertension (Chronic) Chronic kidney disease (Chronic) Chronic kidney disease (CKD), stage V (Inactive) most recent s..creatinine is 3.5 from 3.7 which equals to egfr of 13ml/min per MDRD equation, stable for now, BUN is upto 76, no uremic symptoms s.creatinine has trended up from 3.2 to 3.5 to 4.3-3.5-4.0-3.7-3.5 renal function fluctuating between 3.5-4.0 no uremic symptoms will try and get medicare, if this happens has a potential living donor for pre emptive transplant if not then she will need to get started on HD, not interested on home modality Will follow CKD (chronic kidney disease), stage II (Inactive) CKD (chronic kidney disease), stage IV (Inactive) Her sCr on most recent labs is 3.8 from 3.2 which equals to eGFR of 12.9 ml/min per MDRD equation. There is a ? of volume depletion , despite of increased water intake in the setting of yard work and high temps. Her risk factors include HTN, DMT2 which are well controlled at this time. Pt will monitor BPs, BSs. Pt will increase her fluid intake and have labs repeated in 10 days If renal function does not improve, pt will be referred for AVF placement. Degenerative joint disease (Acute) Diabetes mellitus (Chronic) Diabetes mellitus, type II (Chronic) States BS very much controlled. Care deferred to PCP. 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) Full dentures (Chronic) Heart murmur (Acute) Heart murmur, systolic (Acute) Hyperkalemia (Inactive 06/13/13) Hyperlipemia (Acute) Hyperparathyroidism due to renal insufficiency (Chronic) Hypertension, essential (Acute) Hypertensive renal disease (Chronic 06/13/13) BP at goal ct losartan and amlodipine and diuretics and hydralazine follow low sodium diet Metabolic acidosis (Chronic) Obesity (Acute) Peripheral neuropathy (Acute) proteinu Peritoneal dialysis catheter in situ (Chronic) Proteinuria (Acute) Has microalb/Cr ratio of ~ 1450 mg/g - hx of DMT2, HTN, obesity w/u negative for ESTEPHANIE, complements are wnl and serum/urine CARINA are negative is on losartan which has a renoprotective effect. monitor Secondary hyperparathyroidism of renal origin (Chronic 06/13/13) PTH at 105 a little supressed, not on calcitriol Phos level at 4.6 near goal calcium at goal PTH was 123 when checked last mth ct phoslo and ergocalciferol 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) Surgical History H/O colonoscopy (Acute 08/14/07) 08/14/07- Parent History of cholecystectomy (Acute) Status post left breast lumpectomy (Chronic) Family History Father Alcohol abuse Diabetes mellitus Mother Alcohol abuse Osteoarthritis Grandmother Alcohol abuse Grandfather Diabetes mellitus Unknown Alcohol abuse Uncle Osteoarthritis Uncle Social History Smoking Status: Former smoker Alcohol Intake Frequency: does not drink Exam General Limitations: no limitations General appearance: grimacing (and yelling in pain) Head Head: atraumatic, normocephalic and normal inspection Eye Eye: Present normal appearance Neck Neck: Present normal inspection and full ROM; Absent tenderness Respiratory Respiratory: Present normal lung sounds bilaterally; Absent respiratory distress and accessory muscle use Cardiovascular Cardiovascular: Present regular rate and normal rhythm Expanded Abdominal Abdominal Tenderness: Present RUQ, LUQ and other (pain throughout upper abd but worse RUQ); Absent RLQ and LLQ Extremities Extremities: Present normal inspection Neurological Neurological: Present alert and oriented X3 Skin Skin: Present warm, dry, intact and normal color Course Course Course Narrative: @ 1520 I did speak with Dr. Black who feels this patient as reoccurance of peritonitis and we are having a hard time getting her pain under control she will most likely have to be admitted at least observation to try and get her pain under control and start antibiotics again. @ 1948 Dr. Holguin, hospitalist agrees to accpet pt Vital Signs Vital signs: Vital Signs Temperature 97.7 F 10/02/19 11:41 Pulse Rate 74 10/02/19 11:41 Respiratory Rate 20 10/02/19 11:41 Blood Pressure 158/85 10/02/19 11:41 Pulse Oximetry (%) 99 10/02/19 11:41 Temperature 97.7 F 10/02/19 11:41 Pulse Rate 80 10/02/19 19:17 Respiratory Rate 14 10/02/19 19:17 Blood Pressure 128/62 10/02/19 19:17 Pulse Oximetry (%) 93 10/02/19 19:17 [facility] Medical Records Medical records reviewed: Yes I reviewed the patient's medical records. Lab Data Lab results reviewed: Yes I reviewed the patient's lab results. Result diagrams: 10/02/19 12:16 10/02/19 12:16 Labs: Lab Results 10/02/19 10/02/19 10/02/19 Range/Units 12:02 12:16 12:16 WBC 7.6 (4.50-11.00) K/mcL RBC 3.08 L (3.59-5.38) M/mcL Hgb 9.6 L (11.2-15.7) g/dL Hct 30.3 L (34.1-44.9) % POC Hct 33.0 L (36.0-48.0) % MCV 98.4 (80.0-100.0) fL MCH 31.2 (26.0-34.0) pg MCHC 31.7 (31.0-36.0) g/dL RDW 15.5 H (11.5-14.5) % Plt Count 259 (140-440) K/mcL MPV 10.5 H (7.4-10.4) fL Gran % 81.5 H (38.0-78.0) % Lymph % (Auto) 7.6 L (15.5-49.0) % Simpson % (Auto) 7.4 (1.0-12.0) % Eos % (Auto) 3.0 (0.0-7.0) % Baso % (Auto) 0.5 (0.0-2.0) % Gran # 6.19 (1.80-8.00) K/mcL Lymph # (Auto) 0.58 L (1.50-4.80) K/mcL Simpson # (Auto) 0.56 (0.10-0.90) K/mcL Eos # (Auto) 0.23 (0.00-0.70) K/mcL Baso # (Auto) 0.04 (0.00-0.30) K/mcL VBG Lactic Acid (0.5-2.0) mmol/L POC Sodium 134 (133-145) mmol/L Sodium 136 (133-145) mmol/L POC Potassium 2.8 L* (3.3-5.1) mmol/L Potassium 2.8 L* (3.3-5.1) mmol/L POC Chloride 91 L (96-108) mmol/L Chloride 92 L (96-108) mmol/L Carbon Dioxide 30 (22-30) mmol/L POC Total CO2 30 (22-30) mmol/L Anion Gap 14.0 (8-16) POC BUN 53 H (8-23) mg/dl BUN 61 H (8-23) mg/dl Creatinine 7.4 H* (0.6-1.1) mg/dl POC Creatinine 7.9 H* (0.6-1.1) mg/dl GFR Calculation 5 Glucose 132 H (70-105) mg/dL POC Glucose 130 H (70-105) mg/dL Calcium 8.4 L (8.6-10.4) mg/dl POC WB Ioniz Calcium 1.12 L (1.16-1.32) mmol/L Total Bilirubin 0.2 (0.0-1.0) mg/dL AST 22 (0-37) U/l ALT 12 (0-40) U/l Alkaline Phosphatase 105 (39-117) U/L Total Protein 6.1 (5.9-8.4) gm/dL Albumin 2.2 L (3.2-5.2) gm/dL Globulin 3.9 H (2.2-3.7) gm/dL Albumin/Globulin Ratio 0.6 L (1.0-2.3) Amylase 12 L (28-100) U/L Lipase 16 (7-60) U/L Urine Color Yellow Urine Appearance Clear Urine pH 5.0 (5.0-9.0) Ur Specific [place] 1.016 (1.000-1.035) Urine Protein 100 A (NEG) mg/dL Urine Glucose (UA) Negative (NEG) mg/dL Urine Ketones Neg (NEG) mg/dL Urine Occult Blood Neg (<0.03) mg/dL Urine Nitrate Neg (NEG) Urine Bilirubin Neg (NEG) mg/dL Urine Urobilinogen Neg (NEG) mg/dL Ur Leukocyte Esterase Neg (NEG) /uL Urine RBC 1 (0-1) /hpf Urine WBC 6 H (0-4) /hpf Ur Squamous Epith Cells 6 H (0-4) /hpf Urine Bacteria Few A (0) /hpf Urine Mucus Few (0) /hpf Ur Culture Indicated? No Peritoneal Source Peritoneal Color Peritoneal Appearance Peritoneal RBC /cumm Periton Tot Cells Ct Periton Nuc Cells /cumm Periton Neutrophils % Periton Lymphocytes % Peritoneal Monocytes % Peritoneal Eosinophils Peritoneal Basophils Periton Mesothelial Periton Macrophages Peritoneal Plasma Cell Peritoneal Other Cells Peritoneal Diff Commnt 10/02/19 10/02/19 Range/Units 12:23 16:08 WBC (4.50-11.00) K/mcL RBC (3.59-5.38) M/mcL Hgb (11.2-15.7) g/dL Hct (34.1-44.9) % POC Hct (36.0-48.0) % MCV (80.0-100.0) fL MCH (26.0-34.0) pg MCHC (31.0-36.0) g/dL RDW (11.5-14.5) % Plt Count (140-440) K/mcL MPV (7.4-10.4) fL Gran % (38.0-78.0) % Lymph % (Auto) (15.5-49.0) % Simpson % (Auto) (1.0-12.0) % Eos % (Auto) (0.0-7.0) % Baso % (Auto) (0.0-2.0) % Gran # (1.80-8.00) K/mcL Lymph # (Auto) (1.50-4.80) K/mcL Simpson # (Auto) (0.10-0.90) K/mcL Eos # (Auto) (0.00-0.70) K/mcL Baso # (Auto) (0.00-0.30) K/mcL VBG Lactic Acid 0.7 (0.5-2.0) mmol/L POC Sodium (133-145) mmol/L Sodium (133-145) mmol/L POC Potassium (3.3-5.1) mmol/L Potassium (3.3-5.1) mmol/L POC Chloride (96-108) mmol/L Chloride (96-108) mmol/L Carbon Dioxide (22-30) mmol/L POC Total CO2 (22-30) mmol/L Anion Gap (8-16) POC BUN (8-23) mg/dl BUN (8-23) mg/dl Creatinine (0.6-1.1) mg/dl POC Creatinine (0.6-1.1) mg/dl GFR Calculation Glucose (70-105) mg/dL POC Glucose (70-105) mg/dL Calcium (8.6-10.4) mg/dl POC WB Ioniz Calcium (1.16-1.32) mmol/L Total Bilirubin (0.0-1.0) mg/dL AST (0-37) U/l ALT (0-40) U/l Alkaline Phosphatase (39-117) U/L Total Protein (5.9-8.4) gm/dL Albumin (3.2-5.2) gm/dL Globulin (2.2-3.7) gm/dL Albumin/Globulin Ratio (1.0-2.3) Amylase (28-100) U/L Lipase (7-60) U/L Urine Color Urine Appearance Urine pH (5.0-9.0) Ur Specific [place] (1.000-1.035) Urine Protein (NEG) mg/dL Urine Glucose (UA) (NEG) mg/dL Urine Ketones (NEG) mg/dL Urine Occult Blood (<0.03) mg/dL Urine Nitrate (NEG) Urine Bilirubin (NEG) mg/dL Urine Urobilinogen (NEG) mg/dL Ur Leukocyte Esterase (NEG) /uL Urine RBC (0-1) /hpf Urine WBC (0-4) /hpf Ur Squamous Epith Cells (0-4) /hpf Urine Bacteria (0) /hpf Urine Mucus (0) /hpf Ur Culture Indicated? Peritoneal Source Peritoneal Peritoneal Color Colorless Peritoneal Appearance Hazy Peritoneal RBC < 17879 /cumm Periton Tot Cells Ct 100 Periton Nuc Cells 3461 /cumm Periton Neutrophils 93 % Periton Lymphocytes 4 % Peritoneal Monocytes 3 % Peritoneal Eosinophils Not Reportable Peritoneal Basophils Not Reportable Periton Mesothelial Not Reportable Periton Macrophages Not Reportable Peritoneal Plasma Cell Not Reportable Peritoneal Other Cells Not Reportable Peritoneal Diff Commnt Not Reportable Discharge Plan Patient/Caregiver Discharge Instructions Pt seen by MANAGER PRACTICE/PA only: Yes Clinical Impression: Peritonitis, Intractable abdominal pain, Hypokalemia Instructions: Peritonitis (ED) Prescriptions: No Action calcium acetate(phosphat bind) [PhosLo] 667 mg capsule 667 mg PO .tid with meals Qty: 90 RF: 4 losartan 100 mg tablet 100 mg PO DAILY Qty: 30 RF: 5 furosemide 40 mg tablet 80 mg PO QAM Qty: 60 RF: 1 citalopram 10 mg tablet 20 mg PO HS RF: 0 amlodipine 10 mg tablet 5 mg PO HS RF: 0 cyanocobalamin (vitamin B-12) 2,500 mcg tablet, sublingual 2,500 mcg SUBLINGUAL QDAY RF: 0 ferrous sulfate 325 mg (65 mg iron) tablet 325 mg PO 2-3XW RF: 0 anastrozole 1 MG tablet 1 mg PO DAILY RF: 0 magnesium oxide 420 MG tablet 420 mg PO DAILY RF: 0 clarithromycin 250 MG tablet 250 mg PO .COMPLEX RF: 0 docusate sodium 100 MG capsule 100 mg PO BID RF: 0 omega-3 acid ethyl esters 1 GM capsule 2 cap PO BID RF: 0 vit B comp no.4-[id number]-N-biotin 1 EACH tablet 1 each PO DAILY RF: 0 sucroferric oxyhydroxide 500 MG tablet,chewable 500 mg PO DAILY RF: 0 cholecalciferol (vitamin D3) 50 MCG tablet 2,000 unit PO DAILY RF: 0 protein 275 GM powder 275 gm PO DAILY RF: 0 calcitriol 0.25 MCG capsule 0.25 mcg PO 3XW RF: 0 ergocalciferol (vitamin D2) 8,000 UNIT/ML drops 50,000 unit PO Q2W RF: 0 rosuvastatin 5 MG tablet 5 mg PO HS RF: 0 glipizide 2.5 MG tablet extended release 24hr 5 mg PO QDAY RF: 0 ciprofloxacin HCl 750 MG tablet 750 mg PO Q48 Qty: 5 RF: 0 aspirin 81 MG tablet,chewable 81 mg PO DAILY RF: 0 Follow up with: Guera Black MD [Physician] - Berto Kearney ARNP [Primary Care Provider] - Patient Disposition: Xfer As Inpt ([facility]) Condition: Fair
[2019-10-02 15:31] LABS: Monocyte,Peritoneal Fluid 3 %; Neutrophils,Peritoneal Fluid 93 %
--- NOTE | 2019-10-02 19:19 | Cat Scan Report ---
CLINICAL INFORMATION: Right upper quadrant pain COMPARISON: Abdomen and pelvic CT over two weeks prior 09/17/2019 TECHNIQUE: Following enteric contrast, 80 cc of Isovue-370 were injected intravenously, and 60 seconds later, 0.625 mm helical slices were obtained from the mid heart through the subtrochanteric regions. Following reconstruction, 2.5 mm sagittal, coronal and axial reformatted images were processed and reviewed at bone, lung and soft tissue windows. Five minutes later, 0.625 mm helical slices were obtained from the mid heart through the kidneys and viewed at soft tissue windows.The exam was performed using radiation dose optimization techniques including, but not limited to, automated exposure control, adjustment of the mA and/or kV according to patient size and use of iterative reconstruction technique. FINDINGS: Lung bases show subsegmental right middle lobe and inferior lower lobe atelectasis. There are scattered scarring or atelectasis in the lingula and left lower lobe. There are no pleural effusions. Eight visualized heart is mildly enlarged moderately heavy calcific plaque in the coronary arteries. Abdominal images show mild inhomogeneity in the liver attenuation with slight irregularity cortical surface suggestive but not diagnostic of cirrhosis there are no focal hepatic lesions. The gallbladder is surgically absent. Common hepatic common bile duct are mildly dilated CBD is 8 mm. Findings though post cholecystectomy state. The pancreas, spleen, and both adrenal glands are normal. The aorta contains atherosclerotic plaque, but no stenosis. Both kidneys are diminutive compatible with end-stage renal failure: The left is 7 cm in length and the right is 7 cm in length. There is a high-grade stenosis of the proximal right renal artery. Celiac, SMA left renal artery CHERISE and iliac arteries contain plaque with no significant stenoses. Pelvic images show urinary bladder to be unremarkable. Anteflexed postmenopausal uterus is normal in size - 6.3 cm with scattered calcified fibroids. A peritoneal dialysis catheter enters the anterior abdominal wall in the infraumbilical region near midline and descends into the true pelvis. Moderate free fluid within the peritoneal cavity is likely peritoneal dialysate. There is small amounts of air within the subdiaphragmatic portion of the fluid which was not seen on the previous study. It may be atmospheric. There is moderate thickening of the wall and plica circulares folds of the proximal jejunum is not seen on the previous study. The stomach, duodenum, remaining small bowel and large bowel are normal. Bone windows show no osseous abnormality. IMPRESSION: 1. Moderate free intraperitoneal fluid with small amount of gas in the subdiaphragmatic portion of the fluid. While this is likely merely peritoneal LSA, the patient repeat risk for bacterial peritonitis. There are aspiration of fluid from the peritoneal dialysis catheter for culture and sensitivity 2. Moderate thickening of the wall and plicae circulares folds of the proximal jejunum - commencing at the ligament of Treitz. Consider upper endoscopy to evaluate for ischemia inflammation or infection. 3. Diminutive kidneys without end-stage renal failure. There is an 80% stenosis of the proximal right renal artery. 4. Subsegmental atelectasis right middle and lower lobes. Moderate subcutaneous edema in the lateral pelvic regions Consider referral for upper endoscopy 5. Probable Cirrhosis Interpreted and Authenticated by: Abdiel Melton 10/02/19
[2019-10-02] MEDS ORDERED: POTASSIUM CHLORIDE 20 MEQ TABLET PO ONE ×3 (19:20→22:51)
--- NOTE | 2019-10-02 19:27 | Nephrology History & Physical ---
HPI History of Present Illness Patient information: Note initiated : 10/02/19 at 7:21 pm Service Date, if different from initiated Date: [] Patient: Hedy Pizarro a 63 y/o F admitted on for Rt Sided Abd Pain. Chief Complaint:abdominal pain History of present illness: Late entry for visit on 10/02/2019; patient seen in the ED Ms. Pizarro is a 63 year old F with ESRD on PD pw abdominal pain. She was discharged 09/23/2019 after being treated for peritonitis (acinetobacter, pansensitive), with recommendation to take fluoroquinolone every other day until September 30, and follow-up with GI for evaluation of liver cirrhosis. It is unclear however what antibiotics she took after discharge. Upon review of antibiotic bottles she took only 1/2 tablet of the entire dispensed dose of fluoroquinolone. 12 point review of systems performed and positive for fatigue, increased swelling, diffuse abdominal pain, diarrhea alternating with constipation but la st bowel movement on the day of the admission. Otherwise negative Constitutional Constitutional: Present as per HPI PFSH PFSH Medical History Anemia (Chronic) Anemia in chronic kidney disease (CKD) (Acute) Anemia, iron deficiency (Chronic 06/13/13) Breast cancer (Chronic) Carpal tunnel syndrome (Acute) Chronic back pain (Acute) Chronic hypertension (Chronic) Chronic kidney disease (Chronic) Chronic kidney disease (CKD), stage V (Inactive) most recent s..creatinine is 3.5 from 3.7 which equals to egfr of 13ml/min per MDRD equation, stable for now, BUN is upto 76, no uremic symptoms s.creatinine has trended up from 3.2 to 3.5 to 4.3-3.5-4.0-3.7-3.5 renal function fluctuating between 3.5-4.0 no uremic symptoms will try and get medicare, if this happens has a potential living donor for pre emptive transplant if not then she will need to get started on HD, not interested on home modality Will follow CKD (chronic kidney disease), stage II (Inactive) CKD (chronic kidney disease), stage IV (Inactive) Her sCr on most recent labs is 3.8 from 3.2 which equals to eGFR of 12.9 ml/min per MDRD equation. There is a ? of volume depletion , despite of increased water intake in the setting of yard work and high temps. Her risk factors include HTN, DMT2 which are well controlled at this time. Pt will monitor BPs, BSs. Pt will increase her fluid intake and have labs repeated in 10 days If renal function does not improve, pt will be referred for AVF placement. Degenerative joint disease (Acute) Diabetes mellitus (Chronic) Diabetes mellitus, type II (Chronic) States BS very much controlled. Care deferred to PCP. 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) Full dentures (Chronic) Heart murmur (Acute) Heart murmur, systolic (Acute) Hyperkalemia (Inactive 06/13/13) Hyperlipemia (Acute) Hyperparathyroidism due to renal insufficiency (Chronic) Hypertension, essential (Acute) Hypertensive renal disease (Chronic 06/13/13) BP at goal ct losartan and amlodipine and diuretics and hydralazine follow low sodium diet Metabolic acidosis (Chronic) Obesity (Acute) Peripheral neuropathy (Acute) proteinu Peritoneal dialysis catheter in situ (Chronic) Proteinuria (Acute) Has microalb/Cr ratio of ~ 1450 mg/g - hx of DMT2, HTN, obesity w/u negative for ESTEPHANIE, complements are wnl and serum/urine CARINA are negative is on losartan which has a renoprotective effect. monitor Secondary hyperparathyroidism of renal origin (Chronic 06/13/13) PTH at 105 a little supressed, not on calcitriol Phos level at 4.6 near goal calcium at goal PTH was 123 when checked last mth ct phoslo and ergocalciferol 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) Surgical History H/O colonoscopy (Acute 08/14/07) 08/14/07- Parent History of cholecystectomy (Acute) Status post left breast lumpectomy (Chronic) Family History Father Alcohol abuse Diabetes mellitus Mother Alcohol abuse Osteoarthritis Grandmother Alcohol abuse Grandfather Diabetes mellitus Unknown Alcohol abuse Uncle Osteoarthritis Uncle Social History (Updated 10/02/19 @ 20:28 by Savage Holguin DO) marital status: 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 other: 4 children smoking status: Never smoker alcohol intake frequency: does not drink additional history: Patient quit smoking 30 years ago Denies current alcohol use Ambulates with a walker Lives at home with family MEDS/ALLERGIES Home Medications and Allergies Home Medications Medication Instructions Recorded Confirmed Type amlodipine 10 mg tablet 5 mg PO HS tab 09/30/14 10/02/19 History citalopram 10 mg tablet 20 mg PO HS tab 09/30/14 10/02/19 History cyanocobalamin (vitamin B-12) 2,500 mcg SUBLINGUAL QDAY tab 09/30/14 10/02/19 History 2,500 mcg sublingual tablet ferrous sulfate 325 mg (65 mg 325 mg PO 2-3XW 02/03/16 10/02/19 History iron) tablet PhosLo 667 mg capsule 667 mg PO .tid with meals #90 cap 03/23/16 10/02/19 Rx NS furosemide 40 mg tablet 80 mg PO QAM #60 tab 06/27/18 10/02/19 Rx losartan 100 mg tablet 100 mg PO DAILY #30 tab 06/27/18 10/02/19 Rx anastrozole 1 mg PO DAILY 09/08/19 10/02/19 History cholecalciferol (vitamin D3) 2,000 unit PO DAILY 09/08/19 10/02/19 History clarithromycin 250 mg PO .COMPLEX 09/08/19 10/02/19 History docusate sodium 100 mg PO BID 09/08/19 10/02/19 History magnesium oxide 420 mg PO DAILY 09/08/19 10/02/19 History omega-3 acid ethyl esters 2 cap PO BID 09/08/19 10/02/19 History sucroferric oxyhydroxide 500 mg PO DAILY 09/08/19 10/02/19 History vit B comp no.0-bzcsw-E-biotin 1 each PO DAILY 09/08/19 10/02/19 History calcitriol 0.25 mcg PO 3XW 09/17/19 10/02/19 History ergocalciferol (vitamin D2) 50,000 unit PO Q2W 09/17/19 10/02/19 History glipizide 5 mg PO QDAY 09/17/19 10/02/19 History protein 275 gm PO DAILY 09/17/19 10/02/19 History rosuvastatin 5 mg PO HS 09/17/19 10/02/19 History aspirin 81 mg PO DAILY tab.chew 09/23/19 10/02/19 Rx ciprofloxacin HCl 750 mg PO Q48 #5 tab 09/23/19 10/02/19 Rx nystatin 4 ml PO QID 10/02/19 10/02/19 History Allergies Allergy/AdvReac Type Severity Reaction Status Date / Time lisinopril AdvReac Mild Cough Verified 10/02/19 11:46 Physical Examination Vital Signs Vital signs: Temp Pulse Resp BP Pulse Ox 36.5 C 69 14 106/56 100 10/02/19 11:41 10/02/19 18:02 10/02/19 18:28 10/02/19 18:17 10/02/19 18:02 General Appearance General appearance: well-developed, well-nourished and obese EENT EENT: ATNC and PERRL Neck Neck: no JVD Respiratory Respiratory: clear (anterior aspect) Cardiovascular Cardiology: no rub, regular rate and regular rhythm Gastrointestinal Gastrointestinal: tenderness and guarding (RUQ) Integumentary Integumentary: warm and dry Neurologic Neurologic: no focal deficit Musculoskeletal Musculoskeletal: no cyanosis and no clubbing Psychiatric Psychiatric: mood/affect appropriate Results Lab Results Result Diagrams: 10/04/19 05:55 10/04/19 05:55 Lab results: Most recent lab results Calcium 8.4 mg/dl (8.6-10.4) L 10/02/19 12:16 A/P Assessment and plan (1) End-stage renal disease on peritoneal dialysis: Status: Chronic Comment: based on PD fluid cell count/ abdominal pain (2) Peritonitis associated with peritoneal dialysis: Status: Acute Qualifiers: Encounter type: subsequent encounter Qualified Code(s): T85.71XD - Infection and inflammatory reaction due to peritoneal dialysis catheter, subsequent encounter (3) Abdominal pain: Status: Acute Qualifiers: Abdominal location: generalized Qualified Code(s): R10.84 - Generalized abdominal pain (4) Hypokalemia: Status: Acute Narrative A/P Narrative: Narrative: continue PD, w IPN. for tonight 4 cycles, 1.5% dextrose, 8 hours, 1.5L per fill. 1 liter last fill with 1 gram vancomycin. Resume ciprofloxacin po, renally dosed to cover peritonitis per prior s ensitivities, pending culture *repeat PD count/ diff in 2-3 day *give another 20mEq K po for hypokalemia *daily am metabolic panel Time Spent With Patient Time: Total time spent is greater than 50% in coordination of care (as documented) at patient's floor/unit and/or counseling patient: discussed with Kenzie VUONG RN, hospitalist, superintendent warehouse, patient about findings, plan
--- NOTE | 2019-10-02 20:33 | Internal Med History&Physical ---
HPI History of Present Illness Patient information: Note initiated : 10/02/19 at 8:25 pm Service Date, if different from initiated Date: [] Patient: Hedy Pizarro a 63 y/o F admitted on for Rt Sided Abd Pain. Chief Complaint: [] History of present illness: Ms. Pizarro is a 63 year old F On peritoneal dialysis returns for increasing abdominal pain similar to previous admission. Patient was admitted early September for bacterial peritonitis. She states she is been taking her antibiotics but there is question of that as she might of been taking clarithromycin instead of Cipro. Denies any fever chills nausea vomiting. CT abdomen pelvis showed moderate fluid. Peritoneal fluid was analyzed which was consistent with bacterial peritonitis. Dr. Underwood was contacted and the hospitalist was contacted. She is afebrile and labs are stable. Review of Systems: Pertinent positives as above. Denies headache/fever/chills/nausea/vomiting/chest pain/cough/dyspnea/diarrhea. Remaining 10 point review of system reviewed negative PFSH PFSH Medical History Anemia (Chronic) Anemia in chronic kidney disease (CKD) (Acute) Anemia, iron deficiency (Chronic 06/13/13) Breast cancer (Chronic) Carpal tunnel syndrome (Acute) Chronic back pain (Acute) Chronic hypertension (Chronic) Chronic kidney disease (Chronic) Chronic kidney disease (CKD), stage V (Inactive) most recent s..creatinine is 3.5 from 3.7 which equals to egfr of 13ml/min per MDRD equation, stable for now, BUN is upto 76, no uremic symptoms s.creatinine has trended up from 3.2 to 3.5 to 4.3-3.5-4.0-3.7-3.5 renal function fluctuating between 3.5-4.0 no uremic symptoms will try and get medicare, if this happens has a potential living donor for pre emptive transplant if not then she will need to get started on HD, not interested on home modality Will follow CKD (chronic kidney disease), stage II (Inactive) CKD (chronic kidney disease), stage IV (Inactive) Her sCr on most recent labs is 3.8 from 3.2 which equals to eGFR of 12.9 ml/min per MDRD equation. There is a ? of volume depletion , despite of increased water intake in the setting of yard work and high temps. Her risk factors include HTN, DMT2 which are well controlled at this time. Pt will monitor BPs, BSs. Pt will increase her fluid intake and have labs repeated in 10 days If renal function does not improve, pt will be referred for AVF placement. Degenerative joint disease (Acute) Diabetes mellitus (Chronic) Diabetes mellitus, type II (Chronic) States BS very much controlled. Care deferred to PCP. 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) Full dentures (Chronic) Heart murmur (Acute) Heart murmur, systolic (Acute) Hyperkalemia (Inactive 06/13/13) Hyperlipemia (Acute) Hyperparathyroidism due to renal insufficiency (Chronic) Hypertension, essential (Acute) Hypertensive renal disease (Chronic 06/13/13) BP at goal ct losartan and amlodipine and diuretics and hydralazine follow low sodium diet Metabolic acidosis (Chronic) Obesity (Acute) Peripheral neuropathy (Acute) proteinu Peritoneal dialysis catheter in situ (Chronic) Proteinuria (Acute) Has microalb/Cr ratio of ~ 1450 mg/g - hx of DMT2, HTN, obesity w/u negative for ESTEPHANIE, complements are wnl and serum/urine CARINA are negative is on losartan which has a renoprotective effect. monitor Secondary hyperparathyroidism of renal origin (Chronic 06/13/13) PTH at 105 a little supressed, not on calcitriol Phos level at 4.6 near goal calcium at goal PTH was 123 when checked last mth ct phoslo and ergocalciferol 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) Surgical History H/O colonoscopy (Acute 08/14/07) 08/14/07- Parent History of cholecystectomy (Acute) Status post left breast lumpectomy (Chronic) Family History Father Alcohol abuse Diabetes mellitus Mother Alcohol abuse Osteoarthritis Grandmother Alcohol abuse Grandfather Diabetes mellitus Unknown Alcohol abuse Uncle Osteoarthritis Uncle Social History (Updated 10/02/19 @ 20:28 by Savage Holguin DO) marital status: 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: 4 children smoking status: Former smoker alcohol intake frequency: does not drink additional history: Patient quit smoking 30 years ago Denies current alcohol use Ambulates with a walker Lives at home with family MEDS/ALLERGIES Home Medications and Allergies Home Medications Medication Instructions Recorded Confirmed Type amlodipine 10 mg tablet 5 mg PO HS tab 09/30/14 10/02/19 History citalopram 10 mg tablet 20 mg PO HS tab 09/30/14 10/02/19 History cyanocobalamin (vitamin B-12) 2,500 mcg SUBLINGUAL QDAY tab 09/30/14 10/02/19 History 2,500 mcg sublingual tablet ferrous sulfate 325 mg (65 mg 325 mg PO 2-3XW 02/03/16 10/02/19 History iron) tablet PhosLo 667 mg capsule 667 mg PO .tid with meals #90 cap 03/23/16 10/02/19 Rx NS furosemide 40 mg tablet 80 mg PO QAM #60 tab 06/27/18 10/02/19 Rx losartan 100 mg tablet 100 mg PO DAILY #30 tab 06/27/18 10/02/19 Rx anastrozole 1 mg PO DAILY 09/08/19 10/02/19 History cholecalciferol (vitamin D3) 2,000 unit PO DAILY 09/08/19 10/02/19 History clarithromycin 250 mg PO .COMPLEX 09/08/19 10/02/19 History docusate sodium 100 mg PO BID 09/08/19 10/02/19 History magnesium oxide 420 mg PO DAILY 09/08/19 10/02/19 History omega-3 acid ethyl esters 2 cap PO BID 09/08/19 10/02/19 History sucroferric oxyhydroxide 500 mg PO DAILY 09/08/19 10/02/19 History vit B comp no.0-xwovg-Y-biotin 1 each PO DAILY 09/08/19 10/02/19 History calcitriol 0.25 mcg PO 3XW 09/17/19 10/02/19 History ergocalciferol (vitamin D2) 50,000 unit PO Q2W 09/17/19 10/02/19 History glipizide 5 mg PO QDAY 09/17/19 10/02/19 History protein 275 gm PO DAILY 09/17/19 10/02/19 History rosuvastatin 5 mg PO HS 09/17/19 10/02/19 History aspirin 81 mg PO DAILY tab.chew 09/23/19 10/02/19 Rx ciprofloxacin HCl 750 mg PO Q48 #5 tab 09/23/19 10/02/19 Rx Allergies Allergy/AdvReac Type Severity Reaction Status Date / Time lisinopril AdvReac Mild Cough Verified 10/02/19 11:46 EXAM Constitutional Vitals: Temp Pulse Resp BP Pulse Ox 97.7 F 78 14 120/60 96 10/02/19 11:41 10/02/19 19:47 10/02/19 19:47 10/02/19 19:47 10/02/19 19:47 Exam: General: Alert, Awake, No acute Distress, obese Eyes/N/T: EOMI, PERRL, Head/Neck: neck supple, normocephalic atraumatic CV: RRR, No murmurs, normal s1/s2 Pulm: Clear b/l, no wheezing/rhonchi/rales Abd: soft, TTP throughout but especially right upper and epigastrium. +BS x4 Ext: no clubbing/cyanosis, trace b/l LE edema Neuro: Alert, no focal deficits, moves all extremities, CN 2-12 grossly intact, symmetrical strength b/l upper/lower, sensations intact b/l upper/lower Skin: warm/dry DATA Data Completed and Pending Labs on day of discharge: Labs from last 24 hours 10/02/19 10/02/19 10/02/19 16:08 12:23 12:16 WBC RBC Hgb Hct POC Hct MCV MCH MCHC RDW Plt Count MPV Gran % Lymph % (Auto) Cooper % (Auto) Eos % (Auto) Baso % (Auto) Gran # Lymph # (Auto) Cooper # (Auto) Eos # (Auto) Baso # (Auto) VBG Lactic Acid 0.7 POC Sodium Sodium POC Potassium Potassium POC Chloride Chloride Carbon Dioxide POC Total CO2 Anion Gap POC BUN BUN Creatinine POC Creatinine GFR Calculation Glucose POC Glucose Calcium POC WB Ioniz Calcium Magnesium Pending Total Bilirubin AST ALT Alkaline Phosphatase Total Protein Albumin Globulin Albumin/Globulin Ratio Amylase Lipase Urine Color Urine Appearance Urine pH Ur Specific [place] Urine Protein Urine Glucose (UA) Urine Ketones Urine Occult Blood Urine Nitrate Urine Bilirubin Urine Urobilinogen Ur Leukocyte Esterase Urine RBC Urine WBC Ur Squamous Epith Cells Urine Bacteria Urine Mucus Ur Culture Indicated? Peritoneal Source Peritoneal Peritoneal Color Colorless Peritoneal Appearance Hazy Peritoneal RBC < [address] 100 Periton Nuc Cells 3461 Periton Neutrophils 93 Periton Lymphocytes 4 Peritoneal Monocytes 3 Peritoneal Eosinophils Not Reportable Peritoneal Basophils Not Reportable Periton Mesothelial Not Reportable Periton Macrophages Not Reportable Peritoneal Plasma Cell Not Reportable Peritoneal Other Cells Not Reportable Peritoneal Diff Commnt Not Reportable 10/02/19 10/02/19 10/02/19 12:16 12:16 12:02 WBC 7.6 RBC 3.08 L Hgb 9.6 L Hct 30.3 L POC Hct 33.0 L MCV 98.4 MCH 31.2 MCHC 31.7 RDW 15.5 H Plt Count 259 MPV 10.5 H Gran % 81.5 H Lymph % (Auto) 7.6 L Cooper % (Auto) 7.4 Eos % (Auto) 3.0 Baso % (Auto) 0.5 Gran # 6.19 Lymph # (Auto) 0.58 L Cooper # (Auto) 0.56 Eos # (Auto) 0.23 Baso # (Auto) 0.04 VBG Lactic Acid POC Sodium 134 Sodium 136 POC Potassium 2.8 L* Potassium 2.8 L* POC Chloride 91 L Chloride 92 L Carbon Dioxide 30 POC Total CO2 30 Anion Gap 14.0 POC BUN 53 H BUN 61 H Creatinine 7.4 H* POC Creatinine 7.9 H* GFR Calculation 5 Glucose 132 H POC Glucose 130 H Calcium 8.4 L POC WB Ioniz Calcium 1.12 L Magnesium Total Bilirubin 0.2 AST 22 ALT 12 Alkaline Phosphatase 105 Total Protein 6.1 Albumin 2.2 L Globulin 3.9 H Albumin/Globulin Ratio 0.6 L Amylase 12 L Lipase 16 Urine Color Yellow Urine Appearance Clear Urine pH 5.0 Ur Specific [place] 1.016 Urine Protein 100 A Urine Glucose (UA) Negative Urine Ketones Neg Urine Occult Blood Neg Urine Nitrate Neg Urine Bilirubin Neg Urine Urobilinogen Neg Ur Leukocyte Esterase Neg Urine RBC 1 Urine WBC 6 H Ur Squamous Epith Cells 6 H Urine Bacteria Few A Urine Mucus Few Ur Culture Indicated? No Peritoneal Source Peritoneal Color Peritoneal Appearance Peritoneal RBC Periton Tot Cells Ct Periton Nuc Cells Periton Neutrophils Periton Lymphocytes Peritoneal Monocytes Peritoneal Eosinophils Peritoneal Basophils Periton Mesothelial Periton Macrophages Peritoneal Plasma Cell Peritoneal Other Cells Peritoneal Diff Commnt A/P Assessment and plan (1) End-stage renal disease on peritoneal dialysis: Status: Chronic (2) Peritonitis associated with peritoneal dialysis: Status: Acute Qualifiers: Encounter type: subsequent encounter Qualified Code(s): T85.71XD - Infection and inflammatory reaction due to peritoneal dialysis catheter, subsequent encounter (3) Abdominal pain: Status: Acute Qualifiers: Abdominal location: generalized Qualified Code(s): R10.84 - Generalized abdominal pain Narrative A/P Narrative: A: *Peritoneal dialysis-related peritonitis: *ESRD: *Hypokalemia: *HTN/HLD: *DM: *Anemia, chronic: *Depression/anxiety: *Cirrhosis: * P: -IV abx per Nephro -pending peritoneal cx's and BC -Electrolyte replacement per nephro -cont home lasix -cont home CCB/ARB -SSI -pt/ot -ppx: heparin full code Time Spent With Patient Time: Total time spent is greater than 50% in coordination of care (as documented) at patient's floor/unit and/or counseling patient:
[2019-10-02] MEDS ORDERED: LACTULOSE 20 GM/30 ML ORAL.SOL PO PRN (20:46)
[2019-10-02] MEDS ORDERED: SENNOSIDES 1 TABLET PO PRN (20:46)
[2019-10-02] MEDS ORDERED: METOCLOPRAMIDE 10 MG/2 ML VIAL IV PRN (20:46)
[2019-10-02] MEDS ORDERED: IPRATROPIUM/ALBUTEROL 3 ML AMPUL.NEB NEB PRN (20:46)
[2019-10-02] MEDS ORDERED: VANCOMYCIN PER PHARMACY IV SCH (20:46)
[2019-10-02] MEDS ORDERED: ROSUVASTATIN 5 MG PO SCH (21:00)
[2019-10-02] MEDS ORDERED: DOCUSATE SODIUM 100 MG CAPSULE PO SCH (21:00)
[2019-10-02] MEDS ORDERED: VANCOMYCIN 1,500 MG in 0.9 % SODIUM CHLORIDE 500 ML IV SCH (21:15)
[2019-10-02] MEDS: amLODIPine 10 MG TABLET PO SCH (21:45)
[2019-10-02] MEDS: NYSTATIN 500,000 UNITS/5 ML ORAL.SUSP SSW SCH (21:47)
[2019-10-02] MEDS: HEPARIN 5,000 UNIT/ML VIAL SQ SCH (21:47)
[2019-10-02] MEDS: ACETAMINOPHEN 325 MG TABLET PO PRN (21:47)
[2019-10-02] MEDS: CITALOPRAM 20 MG TABLET PO SCH (21:47)
[2019-10-02] MEDS: DOCUSATE SODIUM 100 MG CAPSULE PO SCH (21:47)
[2019-10-02] MEDS: INSULIN LISPRO 1 UNIT/0.01 ML UNIT SQ SCH (21:49)
[2019-10-02] MEDS: 0.9 % SODIUM CHLORIDE 10 ML SYRINGE IV SCH (22:49)
[2019-10-03] MEDS: HYDROcodone/APAP 5/325MG TABLET PO PRN ×3 (02:21→20:59)
[2019-10-03] MEDS: 0.9 % SODIUM CHLORIDE 10 ML SYRINGE IV SCH ×3 (04:54→22:19)
[2019-10-03] MEDS: ACETAMINOPHEN 325 MG TABLET PO PRN ×2 (05:55→14:29)
--- NOTE | 2019-10-03 07:15 | Internal Med Progress Note ---
SUBJECTIVE Subjective Patient information: Note initiated : 10/03/19 at 7:12 am Service Date, if different from initiated Date: [] Patient: Hedy Pizarro a 63 y/o F admitted on 10/02/19 for Rt Sided Abd Pain. Chief Complaint: [] Interval history: History of present illness: Ms. Pizarro is a 63 year old F On peritoneal dialysis returns for increasing abdominal pain similar to previous admission. Patient was admitted early September for bacterial peritonitis. She states she is been taking her antibiotics but there is question of that as she might of been taking clarithromycin instead of Cipro. Denies any fever chills nausea vomiting. CT abdomen pelvis showed moderate fluid. Peritoneal fluid was analyzed which was consistent with bacterial peritonitis. Dr. Black was contacted and the hospitalist was contacted. She is afebrile and labs are stable. 10/02 Feeling better today abdominal pain improving. No other complaints overnight events. Review of Systems: denies headache/fever/chills/nausea/vomiting/chest pain/cough/dyspnea/diarrhea. Otherwise see above. Constitutional Vitals: Vital Signs Temp Pulse Resp BP Pulse Ox 98.3 F 70 18 106/58 94 10/03/19 04:10 10/03/19 04:10 10/03/19 04:10 10/03/19 04:10 10/03/19 04:10 Period Temp Pulse Resp BP Sys/Loaiza Pulse Ox Last 24 Hr 97.7 F-99.1 F 68-85 12-30 101-175/56-104 91-100 Intake and Output 10/02/19 10/03/19 10/03/19 21:59 05:59 13:59 Intake Total 260 200 Balance 260 200 Weight 79.492 kg Intake & Output: Intake & Output 10/02/19 10/03/19 10/03/19 21:59 05:59 13:59 Intake Total 260 200 Balance 260 200 Weight 79.492 kg Intake: IV 260 Potassium Chloride 20 Meq In 260 Dextrose 5% in Water 250 ml @ 130 mls/hr IV ONCE ONE Rx#: [id number] Oral 200 Other: # Voids 1 Exam: Exam: General: Alert, Awake, No acute Distress, obese Eyes/N/T: EOMI,, Head/Neck: neck supple, CV: RRR, No murmurs, Pulm: Clear b/l, no wheezing/rhonchi/rales Abd: soft, TTP throughout but especially periumblical/ruq/epigastrium. +BS x4 Ext: no clubbing/cyanosis, 2+ b/l LE edema Neuro: Alert, no focal deficits, moves all extremities, Skin: warm/dry OBJ DATA Labs CBC & Chem 7: 10/03/19 05:40 10/03/19 05:40 Labs: Abnormal Lab Results 10/02/19 10/02/19 10/02/19 12:16 12:16 12:02 RBC 3.08 L Hgb 9.6 L Hct 30.3 L POC Hct 33.0 L RDW 15.5 H MPV 10.5 H Gran % 81.5 H Lymph % (Auto) 7.6 L Lymph # (Auto) 0.58 L POC Potassium 2.8 L* Potassium 2.8 L* POC Chloride 91 L Chloride 92 L POC BUN 53 H BUN 61 H Creatinine 7.4 H* POC Creatinine 7.9 H* Glucose 132 H POC Glucose 130 H Calcium 8.4 L POC WB Ioniz Calcium 1.12 L Albumin 2.2 L Globulin 3.9 H Albumin/Globulin Ratio 0.6 L Amylase 12 L Urine Protein 100 A Urine WBC 6 H Ur Squamous Epith Cells 6 H Urine Bacteria Few A Meds: Medications Acetaminophen (Tylenol) 650 mg PO Q6HP PRN PRN Reason: PAIN/FEVER > 101 Last Admin: 10/03/19 05:55 Dose: 650 mg Documented by: Hydrocodone Bitart/Acetaminophen ([place] 5/325mg) 1 tab PO Q4HP PRN PRN Reason: PAIN LEVEL 3-6 Last Admin: 10/03/19 02:21 Dose: 1 tab Documented by: Albuterol/Ipratropium (Duoneb) 3 ml NEB Q4HP PRN PRN Reason: Shortness Of Breath Amlodipine Besylate (Norvasc) 5 mg PO HS [facility] Last Admin: 10/02/19 21:45 Dose: 5 mg Documented by: Aspirin (Aspirin) 81 mg PO DAILY [facility] Atorvastatin Calcium (Lipitor) 10 mg PO HS [facility] Calcitriol (Rocaltrol) 0.25 mcg PO 3XW [facility] Calcium Acetate (Phoslo) 667 mg PO TIDCC [facility] Citalopram Hydrobromide (Celexa) 20 mg PO HS [facility] Last Admin: 10/02/19 21:47 Dose: 20 mg Documented by: Docusate Sodium (Colace) 100 mg PO BID [facility] Last Admin: 10/02/19 21:47 Dose: 100 mg Documented by: Ferrous Sulfate (Ferrous Sulfate) 325 mg PO 2-3XW [facility] Furosemide (Lasix) 80 mg PO QAM [facility] Glipizide (Glucotrol Xl) 5 mg PO QAMAC [facility] Heparin Sodium (Porcine) (Heparin) 5,000 unit SQ Q12 [facility] Last Admin: 10/02/19 21:47 Dose: 5,000 unit Documented by: Ciprofloxacin (Cipro) 400 mg in 200 mls @ 200 mls/hr IV Q48 [facility]; Protocol Insulin Human Lispro (Humalog) 0 unit SQ ACHS [facility]; Protocol Last Admin: 10/02/19 21:49 Dose: Not Given Documented by: Lactulose (Cephulac) 20 gm PO DAILYP PRN PRN Reason: Constipation Losartan Potassium (Cozaar) 100 mg PO DAILY [facility] Magnesium Oxide (Magnesium Oxide) 400 mg PO DAILY [facility] Metoclopramide HCl (Reglan) 10 mg IV Q6HP PRN PRN Reason: Nausea And Vomiting Morphine Sulfate (Morphine) 0 mg IV Q3HP PRN PRN Reason: Pain Non-Formulary Medication (Ergocalciferol (Vitamin D2)) 50,000 unit PO Q2W [facility] Nystatin (Nystatin) 500,000 units SSW QID [facility] Last Admin: 10/02/19 21:47 Dose: 500,000 units Documented by: Ondansetron HCl (Zofran) 4 mg IV Q4HP PRN PRN Reason: Nausea And Vomiting Anastrozole 1 Mg Tab 1 dose PO DAILY [facility] Sucroferric Oxyhydroxide 500 Mg Tab 1 dose PO DAILY [facility] Senna (Senokot) 2 tab PO DAILYP PRN PRN Reason: Constipation Sodium Chloride (Saline Flush) 10 ml IV Q8 [facility] Last Admin: 10/03/19 04:54 Dose: 10 ml Documented by: Vancomycin HCl (Vancomycin Per Pharmacy) 1 order IV UD [facility]; Protocol Vitamin D (Vitamin D3) 2,000 unit PO DAILY [facility] A/P Assessment and plan (1) End-stage renal disease on peritoneal dialysis: Status: Chronic (2) Peritonitis associated with peritoneal dialysis: Status: Acute Qualifiers: Encounter type: subsequent encounter Qualified Code(s): T85.71XD - Infection and inflammatory reaction due to peritoneal dialysis catheter, subsequent encounter (3) Abdominal pain: Status: Acute Qualifiers: Abdominal location: generalized Qualified Code(s): R10.84 - Generalized abdominal pain Narrative A/P Narrative: Narrative: A: *Peritoneal dialysis-related peritonitis: *ESRD: *Hypokalemia: *HTN/HLD: *DM: *Anemia, chronic: *Depression/anxiety: *Cirrhosis: * P: -IV abx per Nephro -pending peritoneal cx's and BC -Electrolyte replacement per nephro -cont home lasix -cont home CCB/ARB -SSI -pt/ot -f/u with GI outpt for cirrhosis -ppx: heparin Time Spent With Patient Time: Total time spent is greater than 50% in coordination of care (as documented) at patient's floor/unit and/or counseling patient: QUALITY VTE Deep Vein Thrombosis/Pulmonary Embolism Present on Admission: No
[2019-10-03] MEDS: glipiZIDE 5 MG TAB.XL.24H PO SCH (07:18)
[2019-10-03] MEDS: INSULIN LISPRO 1 UNIT/0.01 ML UNIT SQ SCH ×4 (07:26→21:01)
[2019-10-03 07:31] LABS: ALT/SGPT 12 U/l (0-40); AST/SGOT 22 U/l (0-37); Albumin/Globulin Ratio 0.5 (1.0-2.3); Alkaline Phosphatase 106 U/L (39-117); Bilirubin,Direct < 0.2 mg/dL (0.0-0.3); Bilirubin,Total 0.2 mg/dL (0.0-1.0); Blood Urea Nitrogen 61 mg/dl (8-23); Carbon Dioxide 25 mmol/L (22-30); Globulin 3.7 gm/dL (2.2-3.7); Glucose 170 mg/dL (70-105); Lactate Dehydrogenase 166 U/L (94-250); Phosphorous 3.2 mg/dL (2.7-4.5); Triglycerides 124 mg/dl (<150); Uric Acid 5.8 mg/dL (2.5-8.0); Vancomycin,Random 27.9 ug/mL
[2019-10-03] MEDS: CALCIUM ACETATE 667 MG CAPSULE PO SCH ×3 (07:34→17:11)
[2019-10-03 07:38] LABS: Chloride 92 mmol/L (96-108); Glomerular Filtration Rate 5
[2019-10-03 07:39] LABS: Basophils # (Auto) 0.03 K/mcL (0.00-0.30); Basophils % (Auto) 0.4 % (0.0-2.0); Eosinophils # (Auto) 0.19 K/mcL (0.00-0.70); Eosinophils % (Auto) 2.3 % (0.0-7.0); Granulocytes % (Auto) 83.6 % (38.0-78.0); Hematocrit 28.8 % (34.1-44.9); Hemoglobin 8.9 g/dL (11.2-15.7); Lymphocytes % (Auto) 5.9 % (15.5-49.0); Mean Cell Volume 99.7 fL (80.0-100.0); Mean Corpuscular HGB Conc 30.9 g/dL (31.0-36.0); Mean Platelet Volume 10.8 fL (7.4-10.4); Monocytes # (Auto) 0.66 K/mcL (0.10-0.90); Monocytes % (Auto) 7.8 % (1.0-12.0); Platelet Count 290 K/mcL (140-440); RBC 2.89 M/mcL (3.59-5.38); Red Cell Distribution Width 15.5 % (11.5-14.5); WBC 8.4 K/mcL (4.50-11.00)
[2019-10-03 08:18] LABS: INR 1.1 (0.9-1.1)
[2019-10-03] MEDS: HEPARIN 5,000 UNIT/ML VIAL SQ SCH ×2 (08:43→21:02)
[2019-10-03] MEDS: LOSARTAN 50 MG TABLET PO SCH (08:44)
[2019-10-03] MEDS: NYSTATIN 500,000 UNITS/5 ML ORAL.SUSP SSW SCH ×4 (08:44→21:01)
[2019-10-03] MEDS: FUROSEMIDE 40 MG TABLET PO SCH (08:44)
[2019-10-03] MEDS: VITAMIN D3 1,000 UNIT TABLET PO SCH (08:45)
[2019-10-03] MEDS: ASPIRIN 81 MG TAB.CHEW PO SCH (08:45)
[2019-10-03] MEDS: MAGNESIUM OXIDE 400 MG TABLET PO SCH (08:45)
[2019-10-03] MEDS: DOCUSATE SODIUM 100 MG CAPSULE PO SCH ×2 (08:45→21:01)
[2019-10-03] MEDS: SUCROFERRIC OXYHYDROXIDE 500 MG PO SCH (08:58)
[2019-10-03] MEDS ORDERED: ERGOCALCIFEROL (VITAMIN D2) 50,000 UNIT CAPSULE PO SCH (09:00)
[2019-10-03] MEDS: CIPROFLOXACIN 250 MG TABLET PO SCH ×2 (09:05→21:01)
[2019-10-03] MEDS: CALCITRIOL 0.25 MCG CAPSULE PO SCH (11:49)
[2019-10-03] MEDS: FERROUS SULFATE 325 MG TABLET PO SCH (11:50)
[2019-10-03] MEDS: ATORVASTATIN 10 MG TABLET PO SCH (21:00)
[2019-10-03] MEDS: amLODIPine 10 MG TABLET PO SCH (21:00)
[2019-10-03] MEDS: CITALOPRAM 20 MG TABLET PO SCH (21:00)
--- NOTE | 2019-10-03 21:06 | Nephrology Progress Note ---
SUBJECTIVE Subjective Patient information: Note initiated : 10/03/19 at 9:05 pm Service Date, if different from initiated Date: [] Patient: Hedy Pizarro 63 y/o F admitted on 10/02/19 for Rt Sided Abd Pain. Chief Complaint: abdominal pain Interval history: Narrative:abdominal pain slightly improved. was able to tolerate low volume PD. IP Vancomycin held as the patient received iv Vancomycin with adequate random level. Constitutional Vitals: Vital Signs Temp Pulse Resp BP Pulse Ox 36.8 C 86 22 124/60 91 10/03/19 20:05 10/03/19 18:57 10/03/19 18:57 10/03/19 20:05 10/03/19 18:57 Period Temp Pulse Resp BP Sys/Loaiza Pulse Ox Last 24 Hr 36.6 C-37.3 C 70-86 18-22 98-146/56-76 91-95 Intake and Output 10/03/19 10/03/19 10/03/19 05:59 13:59 21:59 Intake Total 200 100 300 Output Total 200 Balance 200 100 100 Weight 79.492 kg 82.962 kg Patient Weight 10/04/19 05:59 Weight 82.962 kg Intake & Output: Intake & Output 10/03/19 10/03/19 10/03/19 05:59 13:59 21:59 Intake Total 200 100 300 Output Total 200 Balance 200 100 100 Weight 79.492 kg 82.962 kg Intake: Oral 200 100 300 Output: Void Amount 200 Other: Meal Breakfast Dinner Percent of Meal Consumed 50% 25% Feeding Ability Assist with Tray Set Up Independent Stool Size Moderate Stool Color Brown Stool Consistency Soft Formed # Voids 1 # Bowel Movements 1 General appearance: no acute distress and obese Head Head exam: Present atraumatic Respiratory Additional comments: non labored respirations, clear anterior aspect Cardiovascular Cardiovascular exam: Present normal rate and rhythm GI/Abdominal GI/Abdominal exam: Present soft A/P Assessment and plan (1) End-stage renal disease on peritoneal dialysis: Status: Chronic (2) Peritonitis associated with peritoneal dialysis: Status: Acute Qualifiers: Encounter type: subsequent encounter Qualified Code(s): T85.71XD - Infection and inflammatory reaction due to peritoneal dialysis catheter, subsequent encounter (3) Abdominal pain: Status: Acute Qualifiers: Abdominal location: generalized Qualified Code(s): R10.84 - Generalized abdominal pain Narrative A/P Narrative: ESRD on PD Gram positive cocci (pending ID) and Acinetobacter baumanii/ nosocomialis infection. *continue ciprofloxacin 250mg po bid *vanc level appropriate. repeat in am (this was discussed with pharmacy as well) *Continue PD for tonight 1.5% dextrose, 1.8L per fill, 4 cycles w IPN if available 10/02/2019 CT abdomen pelvis read as moderate free intraperitoneal fluid. Moderate thickening of the wall of the proximal jejunum commencing at the ligament of Treitz. Kidneys L 7 cm, R 7 cm. High-grade stenosis of the right proximal renal artery. Probable cirrhosis 09/20/2019 abdominal ultrasound previous cholecystectomy, sonographically dense liver, mildly nodular consistent with cirrhosis. No evidence of portal vein thrombosis hemodynamics and volume 02/08/2019 echocardiogram LVEF 60 to 65%, grade 1 diastolic dysfunction. RV systolic function normal, LA severely dilated. Estimated pulmonary artery pressure 25 to 30%. discussed with the patient about the liver findings on CT scan. The patient became tearful and said she was not ready to dye, she had a lot of things she enjoyed. emotional support provided. I also reviewed the plan- including work up done during the last admission and need to see GI. Time Spent With Patient Time: Total time spent is greater than 50% in coordination of care (as documented) at patient's floor/unit and/or counseling patient: Total time spent with greater than 50% in coordination of care (as documented) at patient's floor/unit and/or counseling patient:: 25 - 35 minutes
[2019-10-04] MEDS: ACETAMINOPHEN 325 MG TABLET PO PRN (00:33)
[2019-10-04] MEDS: HYDROcodone/APAP 5/325MG TABLET PO PRN ×4 (03:03→20:42)
[2019-10-04] MEDS: 0.9 % SODIUM CHLORIDE 10 ML SYRINGE IV SCH ×3 (06:07→22:15)
[2019-10-04] MEDS: glipiZIDE 5 MG TAB.XL.24H PO SCH (07:05)
[2019-10-04] MEDS: INSULIN LISPRO 1 UNIT/0.01 ML UNIT SQ SCH ×4 (07:07→20:49)
[2019-10-04 07:28] LABS: Basophils # (Auto) 0.02 K/mcL (0.00-0.30); Basophils % (Auto) 0.3 % (0.0-2.0); Eosinophils # (Auto) 0.15 K/mcL (0.00-0.70); Eosinophils % (Auto) 2.2 % (0.0-7.0); Granulocytes % (Auto) 80.8 % (38.0-78.0); Hematocrit 25.7 % (34.1-44.9); Hemoglobin 8.2 g/dL (11.2-15.7); Lymphocytes # (Auto) 0.54 K/mcL (1.50-4.80); Lymphocytes % (Auto) 7.9 % (15.5-49.0); Mean Cell Volume 97.3 fL (80.0-100.0); Mean Corpuscular HGB Conc 31.9 g/dL (31.0-36.0); Mean Platelet Volume 10.7 fL (7.4-10.4); Monocytes % (Auto) 8.8 % (1.0-12.0); Platelet Count 231 K/mcL (140-440); RBC 2.64 M/mcL (3.59-5.38); Red Cell Distribution Width 15.3 % (11.5-14.5); WBC 6.9 K/mcL (4.50-11.00)
[2019-10-04 07:58] LABS: Vancomycin,Random 21.8 ug/mL
[2019-10-04 08:10] LABS: Blood Urea Nitrogen 68 mg/dl (8-23); Carbon Dioxide 25 mmol/L (22-30); Glucose 156 mg/dL (70-105)
[2019-10-04 08:40] LABS: Chloride 91 mmol/L (96-108); Glomerular Filtration Rate 5
[2019-10-04] MEDS: NYSTATIN 500,000 UNITS/5 ML ORAL.SUSP SSW SCH ×4 (08:52→20:49)
[2019-10-04] MEDS: LOSARTAN 50 MG TABLET PO SCH (08:52)
[2019-10-04] MEDS: FUROSEMIDE 40 MG TABLET PO SCH (08:53)
[2019-10-04] MEDS: CALCIUM ACETATE 667 MG CAPSULE PO SCH ×3 (08:53→17:15)
[2019-10-04] MEDS: FERROUS SULFATE 325 MG TABLET PO SCH (08:53)
[2019-10-04] MEDS: VITAMIN D3 1,000 UNIT TABLET PO SCH (08:53)
[2019-10-04] MEDS: CIPROFLOXACIN 250 MG TABLET PO SCH ×2 (08:53→20:49)
[2019-10-04] MEDS: ASPIRIN 81 MG TAB.CHEW PO SCH (08:53)
[2019-10-04] MEDS: DOCUSATE SODIUM 100 MG CAPSULE PO SCH ×2 (08:53→20:49)
[2019-10-04] MEDS: MAGNESIUM OXIDE 400 MG TABLET PO SCH (08:53)
[2019-10-04] MEDS: HEPARIN 5,000 UNIT/ML VIAL SQ SCH ×2 (08:53→20:49)
[2019-10-04] MEDS: SUCROFERRIC OXYHYDROXIDE 500 MG PO SCH (08:54)
[2019-10-04] MEDS ORDERED: CIPROFLOXACIN 400 MG/200 ML BAG IV SCH (09:00)
--- NOTE | 2019-10-04 12:37 | Internal Med Progress Note ---
SUBJECTIVE Subjective Patient information: Note initiated : 10/04/19 at 12:34 pm Service Date, if different from initiated Date: [] Patient: Hedy Pizarro 63 y/o F admitted on 10/02/19 for Rt Sided Abd Pain. Chief Complaint: On peritoneal dialysis returns for increasing abdominal pain similar to previous admission. Patient was admitted early September for bacterial peritonitis. She states she is b een taking her antibiotics but there is question of that as she might of been taking clarithromycin instead of Cipro. Denies any fever chills nausea vomiting. CT abdomen pelvis showed moderate fluid. Peritoneal fluid was analyzed which was consistent with bacterial peritonitis. Dr. Black was contacted and the hospitalist was contacted. She is afebrile and labs are stable. 10/02 Feeling better today abdominal pain improving. No other complaints overnight events. 10/03 Patient continues to have abdominal pain slightly improved Microbiology culture pending continuing vancomycin and ciprofloxacin Discussed with organic preparation analyst plan is to keep her another day until we get the further culture report Her vancomycin trough level is 21 and will hold off the vancomycin today Interval history: Narrative: Review of system Constitutional-no fever no chills Respiratory-no cough no shortness of breath Cardiac no chest pain no palpitations Abdomen-continued having tenderness and distention Neuro-no headache no seizure no focal deficit Psychiatry-no anxiety no depression Skin-no new lesions Constitutional Vitals: Vital Signs Temp Pulse Resp BP Pulse Ox 96.5 F L 68 14 113/63 98 10/04/19 12:00 10/04/19 12:00 10/04/19 12:00 10/04/19 12:00 10/04/19 12:00 Period Temp Pulse Resp BP Sys/Loaiza Pulse Ox Last 24 Hr 96.5 F-99.0 F 68-86 14-22 98-134/56-73 91-98 Intake and Output 10/03/19 10/04/19 10/04/19 21:59 05:59 13:59 Intake Total 720 400 Output Total 200 Balance 520 400 Weight 182 lb 14.4 oz Intake & Output: Intake & Output 10/03/19 10/04/19 10/04/19 21:59 05:59 13:59 Intake Total 720 400 Output Total 200 Balance 520 400 Weight 182 lb 14.4 oz Intake: Oral 720 400 Output: Void Amount 200 Other: Meal Dinner Percent of Meal Consumed 25% Feeding Ability Independent # Voids 1 Head Head exam: Present atraumatic and normal inspection Eye Eye exam: Present EOMI and PERRL; Absent nystagmus, periorbital swelling and scleral icterus ENT ENT exam: Present mucous membranes dry and normal external ear exam; Absent mucous membranes moist Neck Neck exam: Present full ROM and normal inspection; Absent lymphadenopathy Respiratory Respiratory exam: Present decreased breath sounds; Absent accessory muscle use, respiratory distress and wheezes Cardiovascular Cardiovascular exam: Present normal rate and rhythm; Absent irregular rhythm, rubs and +S3 GI/Abdominal GI/Abdominal exam: Present soft and distended; Absent hernia, pulsatile mass, rebound and tenderness Extremities Exam Extremities exam: Present pedal edema and neurovascular intact; Absent joint swelling and Frances's sign Neurological Exam Neurological exam: Present alert, oriented X3 and reflexes normal; Absent CN II- XII intact and motor sensory deficit Psychiatric Psychiatric exam: Absent agitated and anxious OBJ DATA Labs CBC & Chem 7: 10/04/19 05:55 10/04/19 05:55 Labs: Abnormal Lab Results 10/04/19 10/04/19 10/03/19 05:55 05:55 05:40 RBC 2.64 L Hgb 8.2 L Hct 25.7 L POC Hct MCHC RDW 15.3 H MPV 10.7 H Gran % 80.8 H Lymph % (Auto) 7.9 L Lymph # (Auto) 0.54 L PT Sodium 132 L 132 L POC Potassium Potassium POC Chloride Chloride 91 L 92 L POC BUN BUN 68 H 61 H Creatinine 8.2 H* 7.2 H* POC Creatinine Glucose 156 H 170 H POC Glucose Calcium 8.0 L 8.0 L POC WB Ioniz Calcium GGT 58 H Total Protein 5.7 L Albumin 2.0 L Globulin Albumin/Globulin Ratio 0.5 L Amylase Urine Protein Urine WBC Ur Squamous Epith Cells Urine Bacteria 10/03/19 10/03/19 10/02/19 05:40 05:40 12:16 RBC 2.89 L Hgb 8.9 L Hct 28.8 L POC Hct 33.0 L MCHC 30.9 L RDW 15.5 H MPV 10.8 H Gran % 83.6 H Lymph % (Auto) 5.9 L Lymph # (Auto) 0.50 L PT 15.0 H Sodium POC Potassium 2.8 L* Potassium 2.8 L* POC Chloride 91 L Chloride 92 L POC BUN 53 H BUN 61 H Creatinine 7.4 H* POC Creatinine 7.9 H* Glucose 132 H POC Glucose 130 H Calcium 8.4 L POC WB Ioniz Calcium 1.12 L GGT Total Protein Albumin 2.2 L Globulin 3.9 H Albumin/Globulin Ratio 0.6 L Amylase 12 L Urine Protein Urine WBC Ur Squamous Epith Cells Urine Bacteria 10/02/19 10/02/19 12:16 12:02 RBC 3.08 L Hgb 9.6 L Hct 30.3 L POC Hct MCHC RDW 15.5 H MPV 10.5 H Gran % 81.5 H Lymph % (Auto) 7.6 L Lymph # (Auto) 0.58 L PT Sodium POC Potassium Potassium POC Chloride Chloride POC BUN BUN Creatinine POC Creatinine Glucose POC Glucose Calcium POC WB Ioniz Calcium GGT Total Protein Albumin Globulin Albumin/Globulin Ratio Amylase Urine Protein 100 A Urine WBC 6 H Ur Squamous Epith Cells 6 H Urine Bacteria Few A Meds: Medications Acetaminophen (Tylenol) 650 mg PO Q6HP PRN PRN Reason: PAIN/FEVER > 101 Last Admin: 10/04/19 00:33 Dose: 650 mg Documented by: Hydrocodone Bitart/Acetaminophen ([place] 5/325mg) 1 tab PO Q4HP PRN PRN Reason: PAIN LEVEL 3-6 Last Admin: 10/04/19 10:57 Dose: 1 tab Documented by: Albuterol/Ipratropium (Duoneb) 3 ml NEB Q4HP PRN PRN Reason: Shortness Of Breath Amlodipine Besylate (Norvasc) 5 mg PO [facility] Last Admin: 10/03/19 21:00 Dose: 5 mg Documented by: Aspirin (Aspirin) 81 mg PO DAILY [facility] Last Admin: 10/04/19 08:53 Dose: 81 mg Documented by: Atorvastatin Calcium (Lipitor) 10 mg PO [facility] Last Admin: 10/03/19 21:00 Dose: 10 mg Documented by: Calcitriol (Rocaltrol) 0.25 mcg PO [id number]@[id number] [facility] Last Admin: 10/03/19 11:49 Dose: 0.25 mcg Documented by: Calcium Acetate (Phoslo) 667 mg PO TIDCC [facility] Last Admin: 10/04/19 12:13 Dose: 667 mg Documented by: Ciprofloxacin (Cipro) 250 mg PO BID [facility]; Protocol Stop: 10/24/19 08:00 Last Admin: 10/04/19 08:53 Dose: 250 mg Documented by: Citalopram Hydrobromide (Celexa) 20 mg PO HS [facility] Last Admin: 10/03/19 21:00 Dose: 20 mg Documented by: Diagnostic Test (Pha) (Accu-Chek) 1 each FS ACHS [facility] Last Admin: 10/04/19 11:24 Dose: 1 each Documented by: Docusate Sodium (Colace) 100 mg PO BID [facility] Last Admin: 10/04/19 08:53 Dose: 100 mg Documented by: Ergocalciferol (Drisdol) 50,000 unit PO Q14D [facility] Last Admin: 10/03/19 11:49 Dose: 50,000 unit Documented by: Ferrous Sulfate (Ferrous Sulfate) 325 mg PO QAMCC [facility] Last Admin: 10/04/19 08:53 Dose: 325 mg Documented by: Furosemide (Lasix) 80 mg PO QAM [facility] Last Admin: 10/04/19 08:53 Dose: 80 mg Documented by: Glipizide (Glucotrol Xl) 5 mg PO QAMAC [facility] Last Admin: 10/04/19 07:05 Dose: 5 mg Documented by: Heparin Sodium (Porcine) (Heparin) 5,000 unit SQ Q12 [facility] Last Admin: 10/04/19 08:53 Dose: 5,000 unit Documented by: Insulin Human Lispro (Humalog) 0 unit SQ [facility]; Protocol Last Admin: 10/04/19 11:26 Dose: 2 units Documented by: Lactulose (Cephulac) 20 gm PO DAILYP PRN PRN Reason: Constipation Losartan Potassium (Cozaar) 100 mg PO DAILY [facility] Last Admin: 10/04/19 08:52 Dose: 100 mg Documented by: Magnesium Oxide (Magnesium Oxide) 400 mg PO DAILY [facility] Last Admin: 10/04/19 08:53 Dose: 400 mg Documented by: Metoclopramide HCl (Reglan) 10 mg IV Q6HP PRN PRN Reason: Nausea And Vomiting Morphine Sulfate (Morphine) 0 mg IV Q3HP PRN PRN Reason: Pain Last Admin: 10/03/19 22:18 Dose: 1 mg Documented by: Nystatin (Nystatin) 500,000 units SSW QID [facility] Last Admin: 10/04/19 12:13 Dose: 500,000 units Documented by: Ondansetron HCl (Zofran) 4 mg IV Q4HP PRN PRN Reason: Nausea And Vomiting Anastrozole 1 Mg Tab 1 dose PO DAILY [facility] Last Admin: 10/04/19 08:54 Dose: Not Given Documented by: Sucroferric Oxyhydroxide 500 Mg Tab 1 dose PO DAILY [facility] Last Admin: 10/04/19 08:54 Dose: Not Given Documented by: Senna (Senokot) 2 tab PO DAILYP PRN PRN Reason: Constipation Sodium Chloride (Saline Flush) 10 ml IV Q8 [facility] Last Admin: 10/04/19 06:07 Dose: Not Given Documented by: Vitamin D (Vitamin D3) 2,000 unit PO DAILY [facility] Last Admin: 10/04/19 08:53 Dose: 2,000 unit Documented by: A/P Assessment and plan (1) End-stage renal disease on peritoneal dialysis: Status: Chronic (2) Peritonitis associated with peritoneal dialysis: Status: Acute Qualifiers: Encounter type: subsequent encounter Qualified Code(s): T85.71XD - Infection and inflammatory reaction due to peritoneal dialysis catheter, subsequent encounter (3) Abdominal pain: Status: Acute Qualifiers: Abdominal location: generalized Qualified Code(s): R10.84 - Generalized abdominal pain Narrative A/P Narrative: Peritonitis-related to peritoneal dialysis Patient had previous peritonitis She is on chronic ciprofloxacin 250 twice daily-continue Culture growing gram-positive cocci in pairs Discussed with nephrology and continuing vancomycin trough level is 21 will hold off the dosing this morning Patient is to be inpatient until we get the further culture report End-stage renal disease Monitoring urine output renal function and mental status Electrolyte monitoring Continue home Lasix Continue ARB Type 2 diabetes Continue sliding scale insulin History of cirrhosis Outpatient GI follow-up DVT prophylaxis-continue heparin Generalized weakness Continue PT OT Time Spent With Patient Time: Total time spent is greater than 50% in coordination of care (as documented) at patient's floor/unit and/or counseling patient: QUALITY VTE Deep Vein Thrombosis/Pulmonary Embolism Present on Admission: No
--- NOTE | 2019-10-04 17:55 | Nephrology Progress Note ---
SUBJECTIVE Subjective Patient information: Note initiated : 10/04/19 at 5:34 pm Service Date, if different from initiated Date: [] Patient: Hedy Pizarro a 63 y/o F admitted on 10/02/19 for Rt Sided Abd Pain. Chief Complaint: abdominal pain Interval history: Narrative: today the patient's son is in her room. He travelled from [place]. Hedy is feeling better and is happy to have his support. Abdominal pain improved significantly. Edema persists Constitutional Vitals: Vital Signs Temp Pulse Resp BP Pulse Ox 36.4 C 70 14 133/73 96 10/04/19 16:00 10/04/19 16:00 10/04/19 16:00 10/04/19 16:00 10/04/19 16:00 Period Temp Pulse Resp BP Sys/Loaiza Pulse Ox Last 24 Hr 35.8 C-37.2 C 68-86 14-22 113-134/60-73 91-98 Intake and Output 10/04/19 10/04/19 10/04/19 05:59 13:59 21:59 Intake Total 400 240 Balance 400 240 Intake & Output: Intake & Output 10/04/19 10/04/19 10/04/19 05:59 13:59 21:59 Intake Total 400 240 Balance 400 240 Intake: Oral 400 240 Other: Meal Lunch Percent of Meal Consumed 25% Feeding Ability Independent Respiratory Respiratory exam: Present CTAB Cardiovascular Cardiovascular exam: Present RRR Extremities Exam Additional comments: bilateral lower extremity edema below the knees A/P Assessment and plan (1) End-stage renal disease on peritoneal dialysis: Status: Chronic (2) Peritonitis associated with peritoneal dialysis: Status: Acute Qualifiers: Encounter type: subsequent encounter Qualified Code(s): T85.71XD - Infection and inflammatory reaction due to peritoneal dialysis catheter, subsequent encounter (3) Abdominal pain: Status: Acute Qualifiers: Abdominal location: generalized Qualified Code(s): R10.84 - Generalized abdominal pain Narrative A/P Narrative: 10/04/2019 vancomycin level 21.8 continue PD use 2.5% dextrose, 2L, 5 cycles, 9 hours. last fill with 1.5 gram Vancomycin if trough 15-20 on 10/05/2019 *Check Vanco level 10/05/2019 in the a.m. *Continue ciprofloxacin through October 23, 2019 *Continue nystatin swish and swallow 4 times daily for prevention of fungal peritonitis through October 23, 2019 *After discharge we will see the patient on a weekly basis *Repeat PD fluid cell count hemodynamics and volume Albumin low,2.0 10/03/2019. IPN not yet available, once available we will use BP well controlled, on amlodipine 5 mg p.o. daily, losartan 100 mg p.o. daily. volume overload. PD prescription as above acid-base Bicarbonate 25, metabolic acidosis controlled with PD bone-mineral metabolism Corrected calcium 9.6. Phosphorus was at goal in 10/03/2019, 3.2. PTH 157 on 09/19/2019, secondary hyperparathyroidism of renal origin On calcitriol 0.25 mcg p.o. every Tuesday. Also vitamin D 2000 units p.o. daily. No change *Hold Velphoro BUN/ K 68/3.7 hematologic hemoglobin 8.2, in part dilutional. We will re-dose Aranesp 09/29/2019 ferritin 809, T sat 21. In the setting of acute illness. For now no iron supplementation Time Spent With Patient Time: Total time spent is greater than 50% in coordination of care (as documented) at patient's floor/unit and/or counseling patient: Reviewed with Hedy and her son diagnosis of peritonitis, management, liver findings on CT scan, plan. Also discussed the importance of adequate treatment of peritonitis and potential technique failure. All questions answered Total time spent with greater than 50% in coordination of care (as documented) at patient's floor/unit and/or counseling patient:: 25 - 35 minutes
[2019-10-04] MEDS: CITALOPRAM 20 MG TABLET PO SCH (20:48)
[2019-10-04] MEDS: amLODIPine 10 MG TABLET PO SCH (20:49)
[2019-10-04] MEDS: ATORVASTATIN 10 MG TABLET PO SCH (20:49)
[2019-10-05] MEDS: HYDROcodone/APAP 5/325MG TABLET PO PRN ×5 (00:42→16:54)
[2019-10-05] MEDS: 0.9 % SODIUM CHLORIDE 10 ML SYRINGE IV SCH ×3 (05:44→20:38)
[2019-10-05] MEDS: glipiZIDE 5 MG TAB.XL.24H PO SCH (07:11)
[2019-10-05] MEDS: INSULIN LISPRO 1 UNIT/0.01 ML UNIT SQ SCH ×4 (07:20→20:36)
[2019-10-05 07:44] LABS: Basophils # (Auto) 0.02 K/mcL (0.00-0.30); Basophils % (Auto) 0.4 % (0.0-2.0); Eosinophils # (Auto) 0.25 K/mcL (0.00-0.70); Eosinophils % (Auto) 4.5 % (0.0-7.0); Granulocytes % (Auto) 76.9 % (38.0-78.0); Hematocrit 26.2 % (34.1-44.9); Hemoglobin 8.4 g/dL (11.2-15.7); Lymphocytes # (Auto) 0.46 K/mcL (1.50-4.80); Lymphocytes % (Auto) 8.2 % (15.5-49.0); Mean Cell Volume 94.9 fL (80.0-100.0); Mean Corpuscular HGB Conc 32.1 g/dL (31.0-36.0); Mean Platelet Volume 10.7 fL (7.4-10.4); Monocytes # (Auto) 0.56 K/mcL (0.10-0.90); Platelet Count 286 K/mcL (140-440); RBC 2.76 M/mcL (3.59-5.38); Red Cell Distribution Width 15.1 % (11.5-14.5); WBC 5.6 K/mcL (4.50-11.00)
[2019-10-05] MEDS: NYSTATIN 500,000 UNITS/5 ML ORAL.SUSP SSW SCH ×4 (07:59→20:38)
[2019-10-05] MEDS: ASPIRIN 81 MG TAB.CHEW PO SCH (07:59)
[2019-10-05] MEDS: VITAMIN D3 1,000 UNIT TABLET PO SCH (07:59)
[2019-10-05] MEDS: CALCITRIOL 0.25 MCG CAPSULE PO SCH (07:59)
[2019-10-05] MEDS: DOCUSATE SODIUM 100 MG CAPSULE PO SCH ×2 (07:59→20:37)
[2019-10-05] MEDS: FUROSEMIDE 40 MG TABLET PO SCH (08:00)
[2019-10-05] MEDS: FERROUS SULFATE 325 MG TABLET PO SCH (08:00)
[2019-10-05] MEDS: LOSARTAN 50 MG TABLET PO SCH (08:00)
[2019-10-05] MEDS: HEPARIN 5,000 UNIT/ML VIAL SQ SCH ×2 (08:00→20:36)
[2019-10-05] MEDS: MAGNESIUM OXIDE 400 MG TABLET PO SCH (08:00)
[2019-10-05] MEDS: CALCIUM ACETATE 667 MG CAPSULE PO SCH ×3 (08:00→16:54)
[2019-10-05] MEDS: CIPROFLOXACIN 250 MG TABLET PO SCH ×2 (08:00→20:38)
[2019-10-05 08:04] LABS: ALT/SGPT 15 U/l (0-40); AST/SGOT 22 U/l (0-37); Alkaline Phosphatase 114 U/L (39-117); Bilirubin,Total 0.2 mg/dL (0.0-1.0); Blood Urea Nitrogen 61 mg/dl (8-23); Calcium 8.2 mg/dl (8.6-10.4); Carbon Dioxide 27 mmol/L (22-30); Glucose 117 mg/dL (70-105)
[2019-10-05 08:05] LABS: Vancomycin,Random 19.3 ug/mL
[2019-10-05 08:16] LABS: Albumin 1.5 gm/dL (3.2-5.2); Albumin/Globulin Ratio 0.4 (1.0-2.3); Chloride 88 mmol/L (96-108); Globulin 4.2 gm/dL (2.2-3.7); Glomerular Filtration Rate 5
[2019-10-05] MEDS ORDERED: VANCOMYCIN 1,500 MG in 0.9 % SODIUM CHLORIDE 500 ML IP ONE (08:38)
[2019-10-05] MEDS ORDERED: VANCOMYCIN 500 MG VIAL IP ONE (10:00)
[2019-10-05] MEDS: POLYETHYLENE GLYCOL 3350 17 GM PACKET PO PRN (12:11)
--- NOTE | 2019-10-05 12:45 | Internal Med Progress Note ---
SUBJECTIVE Subjective Patient information: Note initiated : 10/05/19 at 12:43 pm Service Date, if different from initiated Date: [] Patient: Hedy Pizarro 63 y/o F admitted on 10/02/19 for Rt Sided Abd Pain. Chief Complaint: On peritoneal dialysis returns for increasing abdominal pain similar to previous admission. Patient was admitted early September for bacterial peritonitis. She states she is be en taking her antibiotics but there is question of that as she might of been taking clarithromycin instead of Cipro. Denies any fever chills nausea vomiting. CT abdomen pelvis showed moderate fluid. Peritoneal fluid was analyzed which was consistent with bacterial peritonitis. Dr. Black was contacted and the hospitalist was contacted. She is afebrile and labs are stable. 10/02 Feeling better today abdominal pain improving. No other complaints overnight events. 10/03 Patient continues to have abdominal pain slightly improved Microbiology culture pending continuing vancomycin and ciprofloxacin Discussed with olive knocker plan is to keep her another day until we get the further culture report Her vancomycin trough level is 21 and will hold off the vancomycin today 10/04 Patient continued having abdominal discomfort Peritoneal fluid looks cloudy Added ceftriaxone in addition to vancomycin Patient needs to be inpatient for another day Vancomycin dose adjusted by pharmacy and nephrology Planning for intraperitoneal instillation Interval history: Narrative: Review of system Constitutional-no fever no chills Respiratory-no cough no shortness of breath Cardiac no chest pain no palpitations Abdomen-continued having tenderness and distention Neuro-no headache no seizure no focal deficit Psychiatry-no anxiety no depression Skin-no new lesions Constitutional Vitals: Vital Signs Temp Pulse Resp BP Pulse Ox 98.1 F 62 16 123/66 98 10/05/19 08:28 10/05/19 08:00 10/05/19 08:00 10/05/19 08:28 10/05/19 08:00 Period Temp Pulse Resp BP Sys/Loaiza Pulse Ox Last 24 Hr 97.4 F-98.3 F 62-83 14-20 106-133/61-73 91-98 Intake and Output 10/04/19 10/05/19 10/05/19 21:59 05:59 13:59 Intake Total 615 200 Balance 615 200 Weight 184 lb Intake & Output: Intake & Output 10/04/19 10/05/19 10/05/19 21:59 05:59 13:59 Intake Total 615 200 Balance 615 200 Weight 184 lb Intake: Oral 615 200 Other: Meal Dinner Percent of Meal Consumed 75% Feeding Ability Independent # Voids 1 Head Head exam: Present atraumatic and normal inspection Eye Eye exam: Present PERRL; Absent conjunctival injection and nystagmus ENT ENT exam: Present mucous membranes dry and normal oropharynx Neck Neck exam: Present full ROM; Absent lymphadenopathy and tenderness Respiratory Respiratory exam: Present normal respiratory exam; Absent accessory muscle use and respiratory distress Cardiovascular Cardiovascular exam: Absent bradycardia, gallop, RRR and systolic murmur GI/Abdominal GI/Abdominal exam: Present distended and tenderness; Absent mass Extremities Exam Extremities exam: Present normal inspection; Absent calf tenderness Neurological Exam Neurological exam: Present alert, CN II-XII intact and oriented X3; Absent abnormal gait and motor sensory deficit OBJ DATA Labs CBC & Chem 7: 10/05/19 05:53 10/05/19 05:53 Labs: Abnormal Lab Results 10/05/19 10/05/19 10/04/19 05:53 05:53 05:55 RBC 2.76 L Hgb 8.4 L Hct 26.2 L MCHC RDW 15.1 H MPV 10.7 H Gran % Lymph % (Auto) 8.2 L Lymph # (Auto) 0.46 L PT Sodium 127 L 132 L Potassium Chloride 88 L 91 L BUN 61 H 68 H Creatinine 8.1 H* 8.2 H* Glucose 117 H 156 H Calcium 8.2 L 8.0 L GGT Total Protein 5.7 L Albumin 1.5 L Globulin 4.2 H Albumin/Globulin Ratio 0.4 L Amylase Urine Protein Urine WBC Ur Squamous Epith Cells Urine Bacteria 10/04/19 10/03/19 10/03/19 05:55 05:40 05:40 RBC 2.64 L 2.89 L Hgb 8.2 L 8.9 L Hct 25.7 L 28.8 L MCHC 30.9 L RDW 15.3 H 15.5 H MPV 10.7 H 10.8 H Gran % 80.8 H 83.6 H Lymph % (Auto) 7.9 L 5.9 L Lymph # (Auto) 0.54 L 0.50 L PT Sodium 132 L Potassium Chloride 92 L BUN 61 H Creatinine 7.2 H* Glucose 170 H Calcium 8.0 L GGT 58 H Total Protein 5.7 L Albumin 2.0 L Globulin Albumin/Globulin Ratio 0.5 L Amylase Urine Protein Urine WBC Ur Squamous Epith Cells Urine Bacteria 10/03/19 10/02/19 10/02/19 05:40 12:16 12:16 RBC 3.08 L Hgb 9.6 L Hct 30.3 L MCHC RDW 15.5 H MPV 10.5 H Gran % 81.5 H Lymph % (Auto) 7.6 L Lymph # (Auto) 0.58 L PT 15.0 H Sodium Potassium 2.8 L* Chloride 92 L BUN 61 H Creatinine 7.4 H* Glucose 132 H Calcium 8.4 L GGT Total Protein Albumin 2.2 L Globulin 3.9 H Albumin/Globulin Ratio 0.6 L Amylase 12 L Urine Protein Urine WBC Ur Squamous Epith Cells Urine Bacteria 10/02/19 12:02 RBC Hgb Hct MCHC RDW MPV Gran % Lymph % (Auto) Lymph # (Auto) PT Sodium Potassium Chloride BUN Creatinine Glucose Calcium GGT Total Protein Albumin Globulin Albumin/Globulin Ratio Amylase Urine Protein 100 A Urine WBC 6 H Ur Squamous Epith Cells 6 H Urine Bacteria Few A Meds: Medications Acetaminophen (Tylenol) 650 mg PO Q6HP PRN PRN Reason: PAIN/FEVER > 101 Last Admin: 10/04/19 00:33 Dose: 650 mg Documented by: Hydrocodone Bitart/Acetaminophen (Taft 5/325mg) 1 tab PO Q4HP PRN PRN Reason: PAIN LEVEL 3-6 Last Admin: 10/05/19 08:53 Dose: 1 tab Documented by: Albuterol/Ipratropium (Duoneb) 3 ml NEB Q4HP PRN PRN Reason: Shortness Of Breath Amlodipine Besylate (Norvasc) 5 mg PO [facility] Last Admin: 10/04/19 20:49 Dose: 5 mg Documented by: Aspirin (Aspirin) 81 mg PO DAILY [facility] Last Admin: 10/05/19 07:59 Dose: 81 mg Documented by: Atorvastatin Calcium (Lipitor) 10 mg PO [facility] Last Admin: 10/04/19 20:49 Dose: 10 mg Documented by: Calcitriol (Rocaltrol) 0.25 mcg PO MoWeFr@0900 [facility] Last Admin: 10/05/19 07:59 Dose: 0.25 mcg Documented by: Calcium Acetate (Phoslo) 667 mg PO TIDCC [facility] Last Admin: 10/05/19 12:08 Dose: 667 mg Documented by: Ciprofloxacin (Cipro) 250 mg PO BID [facility]; Protocol Stop: 10/24/19 08:00 Last Admin: 10/05/19 08:00 Dose: 250 mg Documented by: Citalopram Hydrobromide (Celexa) 20 mg PO HS [facility] Last Admin: 10/04/19 20:48 Dose: 20 mg Documented by: Diagnostic Test (Pha) (Accu-Chek) 1 each FS ACHS [facility] Last Admin: 10/05/19 11:16 Dose: 1 each Documented by: Docusate Sodium (Colace) 100 mg PO BID [facility] Last Admin: 10/05/19 07:59 Dose: 100 mg Documented by: Ergocalciferol (Drisdol) 50,000 unit PO Q14D [facility] Last Admin: 10/03/19 11:49 Dose: 50,000 unit Documented by: Ferrous Sulfate (Ferrous Sulfate) 325 mg PO QAMCC [facility] Last Admin: 10/05/19 08:00 Dose: 325 mg Documented by: Furosemide (Lasix) 80 mg PO QAM [facility] Last Admin: 10/05/19 08:00 Dose: 80 mg Documented by: [facility] Last Admin: 10/05/19 07:11 Dose: 5 mg Documented by: Heparin Sodium (Porcine) (Heparin) 5,000 unit SQ Q12 [facility] Last Admin: 10/05/19 08:00 Dose: 5,000 unit Documented by: Ceftriaxone Sodium 2 gm/ (Dextrose) 50 mls @ 100 mls/hr IV DAILY [facility]; Protocol Insulin Human Lispro (Humalog) 0 unit SQ [facility]; Protocol Last Admin: 10/05/19 11:18 Dose: Not Given Documented by: Lactulose (Cephulac) 20 gm PO DAILYP PRN PRN Reason: Constipation Losartan Potassium (Cozaar) 100 mg PO DAILY [facility] Last Admin: 10/05/19 08:00 Dose: 100 mg Documented by: Magnesium Oxide (Magnesium Oxide) 400 mg PO DAILY [facility] Last Admin: 10/05/19 08:00 Dose: 400 mg Documented by: Metoclopramide HCl (Reglan) 10 mg IV Q6HP PRN PRN Reason: Nausea And Vomiting Morphine Sulfate (Morphine) 0 mg IV Q3HP PRN PRN Reason: Pain Last Admin: 10/05/19 07:11 Dose: 3 mg Documented by: Nystatin (Nystatin) 500,000 units SSW QID [facility] Last Admin: 10/05/19 12:08 Dose: 500,000 units Documented by: Ondansetron HCl (Zofran) 4 mg IV Q4HP PRN PRN Reason: Nausea And Vomiting Anastrozole 1 Mg Tab 1 dose PO DAILY [facility] Last Admin: 10/05/19 08:01 Dose: Not Given Documented by: Polyethylene Glycol (Miralax) 17 gm PO DAILYP PRN PRN Reason: Constipation Last Admin: 10/05/19 12:11 Dose: 17 gm Documented by: Senna (Senokot) 2 tab PO DAILYP PRN PRN Reason: Constipation Sodium Chloride (Saline Flush) 10 ml IV Q8 [facility] Last Admin: 10/05/19 05:44 Dose: 10 ml Documented by: Vitamin D (Vitamin D3) 2,000 unit PO DAILY [facility] Last Admin: 10/05/19 07:59 Dose: 2,000 unit Documented by: A/P Assessment and plan (1) End-stage renal disease on peritoneal dialysis: Status: Chronic (2) Peritonitis associated with peritoneal dialysis: Status: Acute Qualifiers: Encounter type: subsequent encounter Qualified Code(s): T85.71XD - Infection and inflammatory reaction due to peritoneal dialysis catheter, subsequent encounter (3) Abdominal pain: Status: Acute Qualifiers: Abdominal location: generalized Qualified Code(s): R10.84 - Generalized abdominal pain Narrative A/P Narrative: Narrative: Peritonitis-related to peritoneal dialysis Patient had previous peritonitis She is on chronic ciprofloxacin 250 twice daily-continue Culture growing 2 organisms and one is pansensitive Discussed with nephrology and continuing vancomycin trough level is 25 will hold off the dosing this morning Ceftriaxone for better peritoneal fluid penetration End-stage renal disease Monitoring urine output renal function and mental status Electrolyte monitoring Continue home Lasix Continue ARB Type 2 diabetes Continue sliding scale insulin History of cirrhosis Outpatient GI follow-up DVT prophylaxis-continue heparin Generalized weakness Continue PT OT Time Spent With Patient Time: Total time spent is greater than 50% in coordination of care (as documented) at patient's floor/unit and/or counseling patient: QUALITY VTE Deep Vein Thrombosis/Pulmonary Embolism Present on Admission: No
[2019-10-05] MEDS: cefTRIAXone 2 GM in DEXTROSE 5% IN WATER 50 ML IV SCH (13:31)
[2019-10-05 15:12] LABS: Monocyte,Peritoneal Fluid 10 %; Neutrophils,Peritoneal Fluid 82 %
[2019-10-05 15:13] LABS: Nucleated Cel,Peritoneal Fluid 462 /cumm; RBC,Peritoneal Fluid < 50000 /cumm
--- NOTE | 2019-10-05 17:35 | Nephrology Progress Note ---
SUBJECTIVE Subjective Patient information: Note initiated : 10/05/19 at 5:33 pm Service Date, if different from initiated Date: [] Patient: Hedy Pizarro 63 y/o F admitted on 10/02/19 for Rt Sided Abd Pain. Chief Complaint: abdominal pain Interval history: Narrative:continues to have abdominal pain with fills, fibrin noted in all bags post drain Constitutional Vitals: Vital Signs Temp Pulse Resp BP Pulse Ox 36.4 C 69 16 109/67 92 10/05/19 16:00 10/05/19 16:00 10/05/19 16:00 10/05/19 16:00 10/05/19 16:00 Period Temp Pulse Resp BP Sys/Loaiza Pulse Ox Last 24 Hr 36.3 C-36.8 C 62-83 16-20 106-130/61-67 91-98 Intake and Output 10/05/19 10/05/19 10/05/19 05:59 13:59 21:59 Intake Total 200 150 Output Total 500 Balance 200 -350 Intake & Output: Intake & Output 10/05/19 10/05/19 10/05/19 05:59 13:59 21:59 Intake Total 200 150 Output Total 500 Balance 200 -350 Intake: IV 50 Rocephin 2 gm In Dextrose 5% in 50 Water 50 ml @ 100 mls/hr IV DAILY [facility] Rx#:[id number] Oral 200 100 Output: Emesis 500 Other: # Voids 1 Additional findings Additional findings: HEENT NC, AT, eyes-non icteric sclerae resp: non labored, symmetric cheast expansion, on RA extremities: +lower extremity edema, bilateral +2 leticia: alert, clear speech, moves all extremities A/P Assessment and plan (1) End-stage renal disease on peritoneal dialysis: Status: Chronic (2) Peritonitis associated with peritoneal dialysis: Status: Acute Qualifiers: Encounter type: subsequent encounter Qualified Code(s): T85.71XD - Infection and inflammatory reaction due to peritoneal dialysis catheter, subsequent encounter (3) Abdominal pain: Status: Acute Qualifiers: Abdominal location: generalized Qualified Code(s): R10.84 - Generalized abdominal pain Narrative A/P Narrative: Narrative: gram positive cocci (pending ID) and acinetobacter peritonitis 10/05/2019 vanc level 19.3 continue PD use 2.5% dextrose, 2L, 5 cycles, 9 hours. w IPN *1.5gram Vancomycin IP today 10/05/2019 CAPD, also use heparin 1000units per L dialysate *consider icodextrin daytime dwell 10/06/2019 *Continue ciprofloxacin through October 23, 2019, nystatin swish and swallow 4 times daily for prevention of fungal peritonitis through October 23, 2019 *heparin 500units per liter until PD fluid clears/ no more fibrin *After discharge we will see the patient on a weekly basis; I'm concerned about technique failure hemodynamics and volume Albumin 1.5 10/05/2019 IPN will be resumed today hypervolemic hyponatremia goal to increase UF BP well controlled, on amlodipine 5 mg p.o. daily, losartan 100 mg p.o. daily. volume overload. PD prescription as above acid-base Bicarbonate 27 bone-mineral metabolism Phosphorus was at goal in 10/03/2019, 3.2. PTH 157 on 09/19/2019, secondary hyperparathyroidism of renal origin On calcitriol 0.25 mcg p.o. every Tuesday. Also vitamin D 2000 units p.o. daily. No change *Hold Velphoro BUN/ K 61/3.4 *start potassium 20mEq po daily hematologic hemoglobin 8.4, in part dilutional. We will re-dose Aranesp 09/29/2019 ferritin 809, T sat 21. In the setting of acute illness. For now no iron supplementation Time Spent With Patient Time: Total time spent is greater than 50% in coordination of care (as documented) at patient's floor/unit and/or counseling patient:discussed findi ngs, plan. discussed with PD RN, pharmacist. Total time spent with greater than 50% in coordination of care (as documented) at patient's floor/unit and/or counseling patient:: 25 - 35 minutes
[2019-10-05] MEDS: CITALOPRAM 20 MG TABLET PO SCH (20:37)
[2019-10-05] MEDS: amLODIPine 10 MG TABLET PO SCH (20:37)
[2019-10-05] MEDS: ATORVASTATIN 10 MG TABLET PO SCH (20:38)
[2019-10-05] MEDS: ONDANSETRON 4 MG/2 ML VIAL IV PRN (22:28)
[2019-10-06] MEDS: HYDROcodone/APAP 5/325MG TABLET PO PRN
[2019-10-06] MEDS: ONDANSETRON 4 MG/2 ML VIAL IV PRN (03:28)
[2019-10-06] MEDS: 0.9 % SODIUM CHLORIDE 10 ML SYRINGE IV SCH ×2 (04:37→12:31)
[2019-10-06] MEDS: FERROUS SULFATE 325 MG TABLET PO SCH (06:52)
[2019-10-06] MEDS: CALCIUM ACETATE 667 MG CAPSULE PO SCH ×2 (06:53→11:38)
[2019-10-06] MEDS: glipiZIDE 5 MG TAB.XL.24H PO SCH (06:53)
[2019-10-06 06:55] LABS: Basophils # (Auto) 0.03 K/mcL (0.00-0.30); Basophils % (Auto) 0.6 % (0.0-2.0); Eosinophils # (Auto) 0.13 K/mcL (0.00-0.70); Eosinophils % (Auto) 2.6 % (0.0-7.0); Granulocytes % (Auto) 76.2 % (38.0-78.0); Hematocrit 25.7 % (34.1-44.9); Hemoglobin 8.2 g/dL (11.2-15.7); Lymphocytes # (Auto) 0.57 K/mcL (1.50-4.80); Lymphocytes % (Auto) 11.4 % (15.5-49.0); Mean Cell Volume 93.5 fL (80.0-100.0); Mean Corpuscular HGB Conc 31.9 g/dL (31.0-36.0); Mean Platelet Volume 10.5 fL (7.4-10.4); Monocytes # (Auto) 0.46 K/mcL (0.10-0.90); Monocytes % (Auto) 9.2 % (1.0-12.0); Platelet Count 291 K/mcL (140-440); RBC 2.75 M/mcL (3.59-5.38)
[2019-10-06] MEDS: INSULIN LISPRO 1 UNIT/0.01 ML UNIT SQ SCH ×2 (06:55→11:36)
[2019-10-06 07:57] LABS: ALT/SGPT 16 U/l (0-40); AST/SGOT 22 U/l (0-37); Albumin 1.5 gm/dL (3.2-5.2); Albumin/Globulin Ratio 0.4 (1.0-2.3); Alkaline Phosphatase 119 U/L (39-117); Bilirubin,Total < 0.2 mg/dL (0.0-1.0); Blood Urea Nitrogen 59 mg/dl (8-23); Calcium 8.3 mg/dl (8.6-10.4); Carbon Dioxide 27 mmol/L (22-30); Chloride 88 mmol/L (96-108); Globulin 3.9 gm/dL (2.2-3.7); Glomerular Filtration Rate 5; Glucose 149 mg/dL (70-105)
[2019-10-06] MEDS ORDERED: POTASSIUM CHLORIDE 20 MEQ TABLET PO SCH (08:00)
[2019-10-06] MEDS: FUROSEMIDE 40 MG TABLET PO SCH (09:10)
[2019-10-06] MEDS: NYSTATIN 500,000 UNITS/5 ML ORAL.SUSP SSW SCH ×2 (09:10→12:31)
[2019-10-06] MEDS: HEPARIN 5,000 UNIT/ML VIAL SQ SCH (09:10)
[2019-10-06] MEDS: LOSARTAN 50 MG TABLET PO SCH (09:11)
[2019-10-06] MEDS: CIPROFLOXACIN 250 MG TABLET PO SCH (09:11)
[2019-10-06] MEDS: DOCUSATE SODIUM 100 MG CAPSULE PO SCH (09:11)
[2019-10-06] MEDS: ASPIRIN 81 MG TAB.CHEW PO SCH (09:11)
[2019-10-06] MEDS: VITAMIN D3 1,000 UNIT TABLET PO SCH (09:11)
[2019-10-06] MEDS: MAGNESIUM OXIDE 400 MG TABLET PO SCH (09:11)
[2019-10-06] MEDS: POLYETHYLENE GLYCOL 3350 17 GM PACKET PO PRN (09:12)
[2019-10-06] MEDS: cefTRIAXone 2 GM in DEXTROSE 5% IN WATER 50 ML IV SCH (09:27)
[2019-10-06] MEDS ORDERED: MINERAL OIL 1 DOSE ENEMA PR ONE (10:04)
[2019-10-06] MEDS ORDERED: LACTULOSE 20 GM/30 ML ORAL.SOL PO ONE (10:48)
--- NOTE | 2019-10-06 10:52 | Nephrology Progress Note ---
SUBJECTIVE Subjective Patient information: Note initiated : 10/06/19 at 10:51 am Service Date, if different from initiated Date: [] Patient: Hedy Pizarro 63 y/o F admitted on 10/02/19 for Rt Sided Abd Pain. Chief Complaint: abdominal pain Interval history: Narrative: abdominal pain improved. no BM yet. at the time of my visit she was walking in the room with walker. CAPD fill yesterday resulted in good UF, effluent was pink, no fibrin Constitutional Vitals: Vital Signs Temp Pulse Resp BP Pulse Ox 36.8 C 74 18 122/64 94 10/06/19 09:00 10/06/19 09:00 10/06/19 09:00 10/06/19 09:00 10/06/19 09:00 Period Temp Pulse Resp BP Sys/Loaiza Pulse Ox Last 24 Hr 36.2 C-36.9 C 63-86 16-18 109-137/52-72 92-97 Intake and Output 10/05/19 10/06/19 10/06/19 21:59 05:59 13:59 Intake Total 390 250 Output Total 500 Balance -110 250 Weight 80.881 kg Intake & Output: Intake & Output 10/05/19 10/06/19 10/06/19 21:59 05:59 13:59 Intake Total 390 250 Output Total 500 Balance -110 250 Weight 80.881 kg Intake: IV 50 Rocephin 2 gm In Dextrose 5% in 50 Water 50 ml @ 100 mls/hr IV DAILY [facility] Rx#:[id number] Oral 340 250 Output: Emesis 500 Other: Stool Size Moderate Stool Color Brown Stool Consistency Soft Formed # Unmeasured Emesis 1 Additional findings Additional findings: VS reviewed. general in no acute distress HEENT NC, AT. neuro clear speech, walking with walker extremities edema +1 to thighs A/P Assessment and plan (1) End-stage renal disease on peritoneal dialysis: Status: Chronic (2) Peritonitis associated with peritoneal dialysis: Status: Acute Qualifiers: Encounter type: subsequent encounter Qualified Code(s): T85.71XD - Infection and inflammatory reaction due to peritoneal dialysis catheter, subsequent encounter (3) Abdominal pain: Status: Resolved Qualifiers: Abdominal location: generalized Qualified Code(s): R10.84 - Generalized abdominal pain Narrative A/P Narrative: Narrative: gram positive cocci (pending ID) and acinetobacter peritonitis 10/05/2019 vanc level 19.3 continue PD use 2.5% dextrose, 2L, 5 cycles, 9 hours. w IPN *1.5gram Vancomycin IP 10/05/2019 *Continue ciprofloxacin, IP (dose to trough 15-20) through October 23, 2019, nystatin swish and swallow 4 times daily for prevention of fungal peritonitis through October 23, 2019 *heparin 500units per liter until PD fluid clears/ no more fibrin *After discharge we will see the patient on a weekly basis; I'm concerned about technique failure *check Vanc level Tuesday, re-dose based on level. This can be done outpatient *bowel regimen for 1 BM daily (1 dose lactulose ordered this am) hemodynamics and volume Albumin 1.5. continue IPN. patient has imaging findings c/w cirrhosis, suspect also losing protein via peritoneum hypervolemic hyponatremia goal to increase UF, she is third spacing 2/2 marked hypoalbuminemia and it will take time for this to improve. Shorten dwell times, decreased fill volume BP well controlled volume overload. PD prescription as above acid-base Bicarbonate 27 bone-mineral metabolism correct calcium, mb acceptable PTH 157 on 09/19/2019, secondary hyperparathyroidism of renal origin On calcitriol 0.25 mcg p.o. every Tuesday. Also vitamin D 2000 units p.o. daily. No change *Hold Velphoro BUN/ K 59/3.5 *continue potassium 20mEq po daily hematologic hemoglobin 8.2, in part dilutional. We will re-dose Aranesp Tuesday09/29/2019 ferritin 809, T sat 21. In the setting of acute illness. For now no iron supplementation Time Spent With Patient Time: times spend coordinating care: discussion with primary team, floor RN, PD RN and patient Total time spent with greater than 50% in coordination of care (as documented) at patient's floor/unit and/or counseling patient:: 25 - 35 minutes
--- NOTE | 2019-10-06 11:26 | Discharge Summary ---
Discharge Provider Provider Patient information: Note initiated : 10/06/19 at 11:21 am Service Date, if different from initiated Date: [] Patient: Hedy Pizarro 63 y/o F admitted on 10/02/19 for Rt Sided Abd Pain. Chief Complaint: On peritoneal dialysis returns for increasing abdominal pain similar to previous admission. Patient was admitted early September for bacterial peritonitis. She states she is been taking her antibiotics but there is question of that as she might of been taking clarithromycin instead of Cipro. Denies any fever chills nausea vomiting. CT abdomen pelvis showed moderate fluid. Peritoneal fluid was analyzed which was consistent with bacterial peritonitis. Dr. Black was contacted and the hospitalist was contacted. She is afebrile and labs are stable. 10/02 Feeling better today abdominal pain improving. No other complaints overnight events. 10/03 Patient continues to have abdominal pain slightly improved Microbiology culture pending continuing vancomycin and ciprofloxacin Discussed with seamless tube mill operator plan is to keep her another day until we get the further culture report Her vancomycin trough level is 21 and will hold off the vancomycin today 10/04 Patient continued having abdominal discomfort Peritoneal fluid looks cloudy Added ceftriaxone in addition to vancomycin Patient needs to be inpatient for another day Vancomycin dose adjusted by pharmacy and nephrology Planning for intraperitoneal instillation 10/05 Discussed with nephrology and recommended discharging the patient and planning to see her in the clinic on Tuesday and continue vancomycin Continue ciprofloxacin 250 twice daily Continue nystatin Patient was constipated and given enema Advised the patient take lactulose as needed Peritonitis-related to peritoneal dialysis Patient had previous peritonitis She is on chronic ciprofloxacin 250 twice daily-continue Culture growing 2 organisms and one is acitinobacter pansensitive Second organism further sensitivity pending- gram-positive cocci Discussed with nephrology and continuing vancomycin and planning to give next dose on Tuesday in the clinic Continue ciprofloxacin 250 twice daily dosing this morning End-stage renal disease Monitoring urine output renal function and mental status Electrolyte monitoring Continue home Lasix Continue ARB Type 2 diabetes Continue sliding scale insulin Constipation Patient did not have a good bowel movement for last 3 days and ordered lactulose and enema History of cirrhosis Outpatient GI follow-up DVT prophylaxis-continue heparin Generalized weakness Continue PT OT Date of admission: 10/02/19 20:50 Discharge date: 10/06/19 Primary care physician: PAMELA Orozco Consults: 10/02/19 Consult to Physician [CONS] Stat Comment: Consulting Provider: Guera Black Reason For Exam: Physician to Consult 10/02/19 20:24 Consult to Physician [CONS] Stat Comment: Consulting Provider: Savage Holguin Reason For Exam: Physician to Consult Discharge Meds Discharge Medications Active and Home Medications: Home Medications amlodipine 10 mg tablet 5 mg PO HS tab 09/30/14 [History Confirmed 10/02/19 Last Taken 09/17/19 06:00] citalopram 10 mg tablet 20 mg PO HS tab 09/30/14 [History Confirmed 10/02/19 Last Taken 09/16/19 20:30] cyanocobalamin (vitamin B-12) 2,500 mcg sublingual tablet 2,500 mcg SUBLINGUAL QDAY tab 09/30/14 [History Confirmed 10/02/19 Last Taken 09/17/19 06:00] ferrous sulfate 325 mg (65 mg iron) tablet 325 mg PO 2-3XW 02/03/16 [History Confirmed 10/02/19 Last Taken 09/16/19 20:30] PhosLo 667 mg capsule 667 mg PO .tid with meals #90 cap NS 03/23/16 [Rx Confirmed 10/02/19 Last Taken 09/17/19 06:00] furosemide 40 mg tablet 80 mg PO QAM #60 tab 06/27/18 [Rx Confirmed 10/02/19 Last Taken 09/17/19 06:00] losartan 100 mg tablet 100 mg PO DAILY #30 tab 06/27/18 [Rx Confirmed 10/02/19 Last Taken 09/09/18] anastrozole 1 mg PO DAILY 09/08/19 [History Confirmed 10/02/19 Last Taken 09/17/19 06:00] cholecalciferol (vitamin D3) 2,000 unit PO DAILY 09/08/19 [History Confirmed 10/02/19 Last Taken 09/17/19 06:00] clarithromycin 250 mg PO .COMPLEX 09/08/19 [History Confirmed 10/02/19 Last Taken 09/17/19 06:00] docusate sodium 100 mg PO BID 09/08/19 [History Confirmed 10/02/19 Last Taken 09/14/19] magnesium oxide 420 mg PO DAILY 09/08/19 [History Confirmed 10/02/19 Last Taken 09/17/19 06:00] omega-3 acid ethyl esters 2 cap PO BID 09/08/19 [History Confirmed 10/02/19 Last Taken 09/16/19 20:30] sucroferric oxyhydroxide 500 mg PO DAILY 09/08/19 [History Confirmed 10/02/19 Last Taken 09/16/19 20:30] vit B comp no.0-rgdfu-F-biotin 1 each PO DAILY 09/08/19 [History Confirmed 10/02/19 Last Taken 09/17/19 06:00] calcitriol 0.25 mcg PO 3XW 09/17/19 [History Confirmed 10/02/19 Last Taken 09/17/19 06:00] ergocalciferol (vitamin D2) 50,000 unit PO Q2W 09/17/19 [History Confirmed 10/02/19 Last Taken 09/12/19] glipizide 5 mg PO QDAY 09/17/19 [History Confirmed 10/02/19 Last Taken 09/17/19 06:00] protein 275 gm PO DAILY 09/17/19 [History Confirmed 10/02/19 Last Taken 09/17/19 06:00] rosuvastatin 5 mg PO HS 09/17/19 [History Confirmed 10/02/19 Last Taken 08/27/19] aspirin 81 mg PO DAILY tab.chew 09/23/19 [Rx Confirmed 10/02/19 Last Taken Unknown] nystatin 4 ml PO QID 10/02/19 [History Confirmed 10/02/19 Last Taken Unknown] ciprofloxacin HCl 250 mg PO BID #20 tab 10/06/19 [Rx Last Taken Unknown] lactulose 20 gm PO DAILYP PRN #200 ml 10/06/19 [Rx Last Taken Unknown] COURSE Hospital Course Discharge diagnosis: Peritonitis Time Spent with Patient Time attestation: Total time spent providing and/or coordinating discharge services: EXAM Constitutional Vitals: Temp Pulse Resp BP Pulse Ox 98.2 F 74 18 122/64 94 10/06/19 09:00 10/06/19 09:00 10/06/19 09:00 10/06/19 09:00 10/06/19 09:00 Head Head exam: Present atraumatic, normal inspection and normocephalic Eye Eye exam: Present EOMI; Absent periorbital swelling and scleral icterus Neck Neck exam: Present normal inspection; Absent lymphadenopathy and tenderness Respiratory Respiratory exam: Absent accessory muscle use, respiratory distress and wheezes Cardiovascular Cardiovascular exam: Absent gallop, JVD and +S4 GI/Abdominal GI/Abdominal exam: Present soft Extremities Exam Extremities exam: Absent normal inspection, tenderness and Frances's sign Neurological Exam Neurological exam: Present alert and oriented X3; Absent motor sensory deficit Discharge Data Data Completed and Pending Labs on day of discharge: Labs from last 24 hours 10/06/19 10/06/19 10/05/19 05:43 05:43 08:10 WBC 5.0 RBC 2.75 L Hgb 8.2 L Hct 25.7 L MCV 93.5 MCH 29.8 MCHC 31.9 RDW 15.0 H Plt Count 291 MPV 10.5 H Gran % 76.2 Lymph % (Auto) 11.4 L Lucas % (Auto) 9.2 Eos % (Auto) 2.6 Baso % (Auto) 0.6 Gran # 3.81 Lymph # (Auto) 0.57 L Lucas # (Auto) 0.46 Eos # (Auto) 0.13 Baso # (Auto) 0.03 Sodium 128 L Potassium 3.5 Chloride 88 L Carbon Dioxide 27 Anion Gap 13.0 BUN 59 H Creatinine 7.5 H* GFR Calculation 5 Glucose 149 H Calcium 8.3 L Magnesium 1.9 Total Bilirubin < 0.2 AST 22 ALT 16 Alkaline Phosphatase 119 H Total Protein 5.4 L Albumin 1.5 L Globulin 3.9 H Albumin/Globulin Ratio 0.4 L Peritoneal Source Peritoneum Peritoneal Color Colorless Peritoneal Appearance Hazy Peritoneal RBC < [address] 100 Periton Nuc Cells 462 Periton Neutrophils 82 Periton Lymphocytes 8 Peritoneal Monocytes 10 Preliminary micro results at discharge 10/02/19 12:23 Anaerobic Culture - Preliminary Peritoneal Dialysis Fluid Aerobic Culture - Preliminary Gram positive cocci [place].Baumanii/Nosocomialis 10/02/19 16:08 Blood Culture - Preliminary Blood 10/02/19 16:17 Blood Culture - Preliminary Blood Discharge Plan Patient/Caregiver Discharge Instructions Activity: ambulate only with your walker Diet: Renal Instructions: Peritonitis (ED) Activity Restrictions/Additional Instructions: Follow-up with nephrology this Tuesday Continue ciprofloxacin until further decided by seamless tube mill operator Prescriptions: New ciprofloxacin HCl 250 mg Tablet 250 mg PO BID Qty: 20 RF: 0 lactulose 20 gram/30 mL Solution 20 gm PO DAILYP PRN (Reason: Constipation) Qty: 200 RF: 0 Continued calcium acetate(phosphat bind) [PhosLo] 667 mg capsule 667 mg PO .tid with meals Qty: 90 RF: 4 losartan 100 mg tablet 100 mg PO DAILY Qty: 30 RF: 5 furosemide 40 mg tablet 80 mg PO QAM Qty: 60 RF: 1 citalopram 10 mg tablet 20 mg PO HS RF: 0 amlodipine 10 mg tablet 5 mg PO HS RF: 0 cyanocobalamin (vitamin B-12) 2,500 mcg tablet, sublingual 2,500 mcg SUBLINGUAL QDAY RF: 0 ferrous sulfate 325 mg (65 mg iron) tablet 325 mg PO 2-3XW RF: 0 anastrozole 1 MG tablet 1 mg PO DAILY RF: 0 magnesium oxide 420 MG tablet 420 mg PO DAILY RF: 0 clarithromycin 250 MG tablet 250 mg PO .COMPLEX RF: 0 docusate sodium 100 MG capsule 100 mg PO BID RF: 0 omega-3 acid ethyl esters 1 GM capsule 2 cap PO BID RF: 0 vit B comp no.0-pckps-R-biotin 1 EACH tablet 1 each PO DAILY RF: 0 sucroferric oxyhydroxide 500 MG tablet,chewable 500 mg PO DAILY RF: 0 cholecalciferol (vitamin D3) 50 MCG tablet 2,000 unit PO DAILY RF: 0 protein 275 GM powder 275 gm PO DAILY RF: 0 calcitriol 0.25 MCG capsule 0.25 mcg PO 3XW RF: 0 ergocalciferol (vitamin D2) 8,000 UNIT/ML drops 50,000 unit PO Q2W RF: 0 rosuvastatin 5 MG tablet 5 mg PO HS RF: 0 glipizide 2.5 MG tablet extended release 24hr 5 mg PO QDAY RF: 0 aspirin 81 MG tablet,chewable 81 mg PO DAILY RF: 0 nystatin 100,000 unit/mL Suspension 4 ml PO QID RF: 0 Discontinued ciprofloxacin HCl 750 MG tablet 750 mg PO Q48 Qty: 5 RF: 0 Follow Up Plan Follow up with: Guera Black MD [Physician] - (Contact the office on Saturday 10/07 to schedule an appointment) Berto Kearney ARNP [Primary Care Provider] - (Contact the office on Saturday 10/07 to schedule an appointment) Prognosis: Fair I certify that the patient requires SNF services: No Overall status at discharge: patient is progressing back to baseline Discharge Orders: Discharge Order (Routine); Ordered 10/06/19 Ordered By: Jeanine Tubbs Discharge Comment: Total time spent more than 30 minutes QUALITY VTE Deep Vein Thrombosis/Pulmonary Embolism Present on Admission: No
== END 2019-10-06 13:25 | disposition home or self-care (01) | DRG 919 ==
LOC: ED 11:40 → MEDSUR 20:50
PROVIDERS: ADMIT Internal Medicine; ATTEND Internal Medicine

== ENCOUNTER 2020-06-24 10:37 | Inpatient (IN) ==
--- NOTE | 2020-06-24 11:37 | Emergency Department Note ---
Abdominal Pain HPI General Chief Complaint: Abdominal Pain Stated Complaint: abd pain Time Seen by Provider: 06/24/20 10:43 Source: patient Mode of arrival: wheelchair Limitations: no limitations History of Present Illness HPI Narrative: Narrative: Presents to room E2 for evaluation of abdominal pain and symptoms associated with peritoneal dialysis. The patient has end-stage renal disease with diabetes and has been on peritoneal dialysis. The patient did have an episode of similar symptoms in October of last year and was diagnosed with catheter associated peritonitis. The patient required admission and IV antibiotics that time. The patient reports over the last week she has been having discomfort. Over the last 3 days she is reported burning associated with dialysis to the point where she is no longer tolerate her dialysis. The patient was seen by the dialysis nurse yesterday and had a dialysate sample obtained. She was called by her PCP today and advised to come to the emergency department for further treatment. The patient denies any fevers or shaking chills. The patient denies any nausea or vomiting. No change in bowel habits. The patient does make a small amount of urine and denies any urinary complaints. Related Data Home Medications Medication Instructions Recorded Confirmed citalopram 10 mg tablet 20 mg PO HS tab 09/30/14 10/08/19 cyanocobalamin (vitamin B-12) 2,500 mcg SUBLINGUAL QDAY tab 09/30/14 10/08/19 2,500 mcg sublingual tablet ferrous sulfate 325 mg (65 mg 325 mg PO BID 02/03/16 10/08/19 iron) tablet anastrozole 1 mg PO DAILY 09/08/19 10/08/19 cholecalciferol (vitamin D3) 2,000 unit PO DAILY 09/08/19 10/08/19 docusate sodium 100 mg PO PRN PRN 09/08/19 10/08/19 calcitriol 0.25 mcg PO 3XW 09/17/19 10/08/19 ergocalciferol (vitamin D2) 50,000 unit PO Q2W 09/17/19 10/08/19 glipizide 5 mg PO QDAY 09/17/19 10/08/19 protein 275 gm PO DAILY 09/17/19 10/08/19 magnesium oxide 420 mg tablet 420 mg PO QDAY 01/01/20 darbepoetin ayah in polysorbat 40 40 mcg SUB-Q Q4W ml 09/25/20 mcg/mL in polysorbate injection hydrocodone 10 mg-acetaminophen 1 tab PO QID PRN tab 01/04/20 325 mg tablet Previous Rx's Medication Instructions Recorded aspirin 81 mg PO DAILY tab.chew 09/23/19 vitamin B complex-vitamin C-folic 1 tab PO QDAY #90 tab 11/02/19 acid 0.8 mg tablet gentamicin 0.1 % topical cream 1 applic TOPICAL ONCE #15 g 01/23/20 losartan 100 mg tablet 100 mg PO DAILY #30 tab 01/23/20 omega-3 acid ethyl esters 1 gram 2 cap PO BID #120 cap 01/23/20 capsule potassium chloride 20 mEq 20 meq PO QDAY #90 tab 01/23/20 tablet,extended release calcium acetate(phosphat bind) 667 667 mg PO .tid with meals #90 cap 03/20/20 mg capsule NS sucroferric oxyhydroxide 500 mg 500 mg PO DAILY #30 tab 03/21/20 chewable tablet amlodipine 10 mg tablet 5 mg PO DAILY #45 tab 05/29/20 furosemide 40 mg tablet 80 mg PO QAM #180 tab 05/29/20 rosuvastatin 5 mg tablet 5 mg PO HS #90 tab 05/29/20 Allergies Allergy/AdvReac Type Severity Reaction Status Date / Time lisinopril AdvReac Mild Cough Verified 10/02/19 11:46 Review of Systems ROS ROS Narrative: Narrative: All systems ED: reviewed and negative except as stated. [facility] Narrative Patient History Narrative: Narrative: Medical/Surgical/Family History All Active Problems (Updated 06/24/20 @ 13:33 by Stephen Robert MD) Abdominal pain (Acute) Diabetic gastroparesis (Acute) Diabetes mellitus out of control (Acute) Secondary hyperparathyroidism of renal origin (Chronic) ESRD on peritoneal dialysis (Acute) Right lower quadrant pain (Acute) Liver cirrhosis (Chronic) Diarrhea (Acute) History of peritonitis (Acute) Hypoglycemia (Acute) Hypoglycemia (Acute) Peritonitis (Acute) ESRD (end stage renal disease) (Acute) Micronodular cirrhosis (Acute) Anemia in ESRD (end-stage renal disease) (Chronic) End-stage renal disease on peritoneal dialysis (Chronic) Peritonitis associated with peritoneal dialysis (Acute) Hyponatremia (Chronic) Peritonitis (Acute) Intractable abdominal pain (Acute) Hypokalemia (Acute) Chronic hypertension (Chronic) Diabetes mellitus (Chronic) Peritoneal dialysis catheter in situ (Chronic) 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) Breast cancer (Chronic) Acute cervical sprain (Acute) Right-sided chest wall pain (Acute) H/O colonoscopy (Acute 08/14/07) Anemia (Chronic) History of cholecystectomy (Acute) Proteinuria (Acute) Peripheral neuropathy (Acute) Obesity (Acute) Heart murmur, systolic (Acute) Metabolic acidosis (Chronic) Hypertensive renal disease (Chronic 06/13/13) Hypertension, essential (Acute) Hyperlipemia (Acute) Heart murmur (Acute) Diabetes mellitus, type II (Chronic) 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) Degenerative joint disease (Acute) Carpal tunnel syndrome (Acute) Chronic back pain (Acute) Anemia, iron deficiency (Chronic 06/13/13) Anemia in chronic kidney disease (CKD) (Acute) Medical History Anemia Anemia in chronic kidney disease (CKD) Anemia, iron deficiency (06/13/13) Breast cancer Carpal tunnel syndrome Chronic back pain Chronic hypertension Chronic kidney disease (CKD), stage V most recent s..creatinine is 3.5 from 3.7 which equals to egfr of 13ml/min per MDRD equation, stable for now, BUN is upto 76, no uremic symptoms s.creatinine has trended up from 3.2 to 3.5 to 4.3-3.5-4.0-3.7-3.5 renal function fluctuating between 3.5-4.0 no uremic symptoms will try and get medicare, if this happens has a potential living donor for pre emptive transplant if not then she will need to get started on HD, not interested on home modality Will follow CKD (chronic kidney disease), stage II CKD (chronic kidney disease), stage IV Her sCr on most recent labs is 3.8 from 3.2 which equals to eGFR of 12.9 ml/min per MDRD equation. There is a ? of volume depletion , despite of increased water intake in the setting of yard work and high temps. Her risk factors include HTN, DMT2 which are well controlled at this time. Pt will monitor BPs, BSs. Pt will increase her fluid intake and have labs repeated in 10 days If renal function does not improve, pt will be referred for AVF placement. Degenerative joint disease Diabetes mellitus Diabetes mellitus, type II States BS very much controlled. Care deferred to PCP. ct current medications Ductal carcinoma in situ (DCIS) of left breast Full dentures Heart murmur Heart murmur, systolic Hyperkalemia (06/13/13) Hyperlipemia Hypertension, essential Hypertensive renal disease (06/13/13) BP at goal ct losartan and amlodipine and diuretics and hydralazine follow low sodium diet Metabolic acidosis Obesity Peripheral neuropathy proteinu Peritoneal dialysis catheter in situ Proteinuria Has microalb/Cr ratio of ~ 1450 mg/g - hx of DMT2, HTN, obesity w/u negative for ESTEPHANIE, complements are wnl and serum/urine CARINA are negative is on losartan which has a renoprotective effect. monitor Type II diabetes mellitus with renal manifestations Surgical History H/O colonoscopy (08/14/07) 08/14/07- Parent History of cholecystectomy Status post left breast lumpectomy Family History Father Alcohol abuse Diabetes mellitus Mother Alcohol abuse Osteoarthritis Grandmother Alcohol abuse Grandfather Diabetes mellitus Unknown Alcohol abuse Uncle Osteoarthritis Uncle Social History Smoking Status: Never smoker Alcohol Intake Frequency: does not drink Exam Narrative Narrative: Narrative: General Limitations: no limitations General appearance: Present alert and in no apparent distress Head Head: Present atraumatic, normocephalic and normal inspection Eye Eye: Present normal appearance and EOMI; Absent conjunctival injection ENT ENT: Present normal exam and mucous membranes moist Neck Neck: Present normal inspection and trachea midline Respiratory Respiratory: Present normal lung sounds bilaterally; Absent respiratory distress Cardiovascular Cardiovascular: Present regular rate, normal rhythm and normal heart sounds Adbominal Abdominal: Present soft, tenderness (There is diffuse tenderness to mild palpation over the abdomen. The patient does not tolerate percussion tenderness.), guarding and rebound; Absent distention Extremities Extremities: Present normal inspection; Absent tenderness Back Back: Present normal inspection; Absent tenderness Neurological Neurological: Present alert, oriented X3 and CN II-XII intact; Absent motor sensory deficit Psychiatric Psychiatric: Present normal affect and normal mood Skin Skin: Present warm (WNL) and dry; Absent rash Course Vital Signs Vital signs: Vital Signs Temperature 97.7 F 06/24/20 10:38 Pulse Rate 66 06/24/20 10:38 Respiratory Rate 14 06/24/20 10:38 Blood Pressure 138/68 06/24/20 10:38 Pulse Oximetry (%) 95 06/24/20 10:38 Temperature 97.7 F 06/24/20 10:38 Pulse Rate 65 06/24/20 11:08 Respiratory Rate 18 06/24/20 11:08 Blood Pressure 143/63 06/24/20 11:08 Pulse Oximetry (%) 98 06/24/20 11:08 MDM MDM Narrative Medical decision making narrative: Narrative: Patient presents for evaluation of abdominal pain in the context of vomiting. The patient has a history of gastroparesis and has had similar presentations in the past. On exam she does not have a surgical abdomen her labs are unremarkable except her blood sugar is elevated at 311. The patient does not have any signs of acidosis or gap. Patient's urine does show some mild ketones. The patient reports that she normally takes long-acting insulin 5 units in the morning and 19 units at night. She does not take any regular insulin currently. The patient was treated with IV Reglan, Benadryl and oral Levsin. The patient also received IV fluid. On repeat examination states feeling much better. I discussed management of her hyperglycemia and offered IV or subcu insulin. The patient is refused this. She wishes to be discharged home and agrees to take her insulin per her regimen. I have also discussed with her the importance of frequent monitoring and recording of her insulin values to help improve her glycemic control. The patient is given return precautions. Lab Data Lab results reviewed: Yes I reviewed the patient's lab results. Discharge Plan Patient/Caregiver Discharge Instructions Pt seen by TUCKING MACHINE OPERATOR/PA only: No Clinical Impression: Abdominal pain, Diabetic gastroparesis, Diabetes mellitus out of control Instructions: Diabetic Gastroparesis (DC), Diabetic Hyperglycemia (ED) Patient Disposition: Home, Self-Care Follow up with: Noah Wadsworth MD [Primary Care Provider] - Prescriptions: No Action Nephro-Meme 0.8 mg tablet 1 tab PO QDAY Qty: 90 RF: 1 magnesium oxide 420 mg tablet 420 mg PO QDAY RF: 0 Aranesp (in polysorbate) 40 mcg/mL solution 40 mcg SUB-Q Q4W RF: 0 hydrocodone-acetaminophen 10-325 mg tablet 1 tab PO QID PRNRF: 0 gentamicin 0.1 % cream 1 applic TOPICAL ONCE Qty: 15 RF: 0 losartan 100 mg tablet 100 mg PO DAILY Qty: 30 RF: 1 omega-3 acid ethyl esters 1 gram capsule 2 cap PO BID Qty: 120 RF: 1 potassium chloride 20 mEq tablet extended release 20 meq PO QDAY Qty: 90 RF: 0 calcium acetate(phosphat bind) 667 mg capsule 667 mg PO .tid with meals Qty: 90 RF: 12 Velphoro 500 mg tablet,chewable 500 mg PO DAILY Qty: 30 RF: 1 amlodipine 10 mg tablet 5 mg PO DAILY Qty: 45 RF: 4 rosuvastatin 5 mg tablet 5 mg PO HS Qty: 90 RF: 4 furosemide 40 mg tablet 80 mg PO QAM Qty: 180 RF: 4 citalopram 10 mg tablet 20 mg PO HS RF: 0 cyanocobalamin (vitamin B-12) 2,500 mcg tablet, sublingual 2,500 mcg SUBLINGUAL QDAY RF: 0 ferrous sulfate 325 mg (65 mg iron) tablet 325 mg PO BID RF: 0 anastrozole 1 MG tablet 1 mg PO DAILY RF: 0 docusate sodium 100 MG capsule 100 mg PO PRN PRN (Reason: Constipation) RF: 0 cholecalciferol (vitamin D3) 50 MCG tablet 2,000 unit PO DAILY RF: 0 protein 275 GM powder 275 gm PO DAILY RF: 0 calcitriol 0.25 MCG capsule 0.25 mcg PO 3XW RF: 0 ergocalciferol (vitamin D2) 8,000 UNIT/ML drops 50,000 unit PO Q2W RF: 0 glipizide 2.5 MG tablet extended release 24hr 5 mg PO QDAY RF: 0 aspirin 81 MG tablet,chewable 81 mg PO DAILY RF: 0
[2020-06-24] MEDS ORDERED: CEFEPIME 1 GM VIAL IV ONE ×2 (12:06→12:30)
[2020-06-24] MEDS ORDERED: VANCOMYCIN 1,500 MG in 0.9 % SODIUM CHLORIDE 500 ML IV ONE (12:10)
--- NOTE | 2020-06-24 12:21 | Internal Med History&Physical ---
HPI History of Present Illness Patient information: Note initiated : 06/24/20 at 12:18 pm Service Date, if different from initiated Date: [] Patient: Hedy Pizarro a 64 y/o F admitted on for abd pain. Chief Complaint: Abd pain and burning sensation. History of present illness: Ms. Pizarro is a 64 year old F with a history of ESRD on peritoneal dialysis/HTN/anxiety/DM type II/HLD. Patient lives with her son at [facility] and follows up at the [facility] clinic and [facility] nephrology. Her daughter Lesley is her primary residential care facility manager. Over the last 4 days patient has noted increasing burning sensation abdominal discomfort. She tried to reach nephrology clinic on Tuesday and left a message. Over the next couple of days her symptoms continue to progress with increasing lethargic burning sensation discomfort and loss of appetite. She presented today to the ER due to above. Initial work-up in the ER was consistent with acute peritonitis related to peritoneal dialysis. Patient was started on antibiotic coverage after nephrology was consulted. Subsequently hospitalist service was consulted for admission. White count 7.9, creatinine 12.9/BUN 101/potassium 3.4. Peritoneal fluid evaluation nucleated cells 7 6290% neutrophils, cultures pending. At the time of my evaluation patient is alert but very anxious. She is accompanied with her daughter Lesley. She is able to provide answer most of the questions and endorse history as above. She denies diarrhea, dysuria, headache, photophobia endorses to low-grade fever, malaise, loss of appetite and gradual loss of functional ability. She actually provides care for her disabled son which he has not been able to do so over the last 4 days. Review systems 10 point review system was performed and is negative except for ones discussed above PFSH PFSH All Active Problems (Updated 06/24/20 @ 13:33 by Stephen Robert MD) Abdominal pain (Acute) Diabetic gastroparesis (Acute) Diabetes mellitus out of control (Acute) Secondary hyperparathyroidism of renal origin (Chronic) ESRD on peritoneal dialysis (Acute) Right lower quadrant pain (Acute) Liver cirrhosis (Chronic) Diarrhea (Acute) History of peritonitis (Acute) Hypoglycemia (Acute) Hypoglycemia (Acute) Peritonitis (Acute) ESRD (end stage renal disease) (Acute) Micronodular cirrhosis (Acute) Anemia in ESRD (end-stage renal disease) (Chronic) End-stage renal disease on peritoneal dialysis (Chronic) Peritonitis associated with peritoneal dialysis (Acute) Hyponatremia (Chronic) Peritonitis (Acute) Intractable abdominal pain (Acute) Hypokalemia (Acute) Chronic hypertension (Chronic) Diabetes mellitus (Chronic) Peritoneal dialysis catheter in situ (Chronic) 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) Breast cancer (Chronic) Acute cervical sprain (Acute) Right-sided chest wall pain (Acute) H/O colonoscopy (Acute 08/14/07) Anemia (Chronic) History of cholecystectomy (Acute) Proteinuria (Acute) Peripheral neuropathy (Acute) Obesity (Acute) Heart murmur, systolic (Acute) Metabolic acidosis (Chronic) Hypertensive renal disease (Chronic 06/13/13) Hypertension, essential (Acute) Hyperlipemia (Acute) Heart murmur (Acute) Diabetes mellitus, type II (Chronic) 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) Degenerative joint disease (Acute) Carpal tunnel syndrome (Acute) Chronic back pain (Acute) Anemia, iron deficiency (Chronic 06/13/13) Anemia in chronic kidney disease (CKD) (Acute) Medical History Anemia Anemia in chronic kidney disease (CKD) Anemia, iron deficiency (06/13/13) Breast cancer Carpal tunnel syndrome Chronic back pain Chronic hypertension Chronic kidney disease (CKD), stage V most recent s..creatinine is 3.5 from 3.7 which equals to egfr of 13ml/min per MDRD equation, stable for now, BUN is upto 76, no uremic symptoms s.creatinine has trended up from 3.2 to 3.5 to 4.3-3.5-4.0-3.7-3.5 renal function fluctuating between 3.5-4.0 no uremic symptoms will try and get medicare, if this happens has a potential living donor for pre emptive transplant if not then she will need to get started on HD, not interested on home modality Will follow CKD (chronic kidney disease), stage II CKD (chronic kidney disease), stage IV Her sCr on most recent labs is 3.8 from 3.2 which equals to eGFR of 12.9 ml/min per MDRD equation. There is a ? of volume depletion , despite of increased water intake in the setting of yard work and high temps. Her risk factors include HTN, DMT2 which are well controlled at this time. Pt will monitor BPs, BSs. Pt will increase her fluid intake and have labs repeated in 10 days If renal function does not improve, pt will be referred for AVF placement. Degenerative joint disease Diabetes mellitus Diabetes mellitus, type II States BS very much controlled. Care deferred to PCP. ct current medications Ductal carcinoma in situ (DCIS) of left breast Full dentures Heart murmur Heart murmur, systolic Hyperkalemia (06/13/13) Hyperlipemia Hypertension, essential Hypertensive renal disease (06/13/13) BP at goal ct losartan and amlodipine and diuretics and hydralazine follow low sodium diet Metabolic acidosis Obesity Peripheral neuropathy proteinu Peritoneal dialysis catheter in situ Proteinuria Has microalb/Cr ratio of ~ 1450 mg/g - hx of DMT2, HTN, obesity w/u negative for ESTEPHANIE, complements are wnl and serum/urine CARINA are negative is on losartan which has a renoprotective effect. 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 other: 4 children smoking status: Never smoker alcohol intake frequency: does not drink additional history: Patient quit smoking 30 years ago Denies current alcohol use Ambulates with a walker Lives at home with family MEDS/ALLERGIES Home Medications and Allergies Home Medications Medication Instructions Recorded Confirmed Type citalopram 10 mg tablet 20 mg PO HS tab 09/30/14 10/08/19 History cyanocobalamin (vitamin B-12) 2,500 mcg SUBLINGUAL QDAY tab 09/30/14 10/08/19 History 2,500 mcg sublingual tablet ferrous sulfate 325 mg (65 mg 325 mg PO BID 02/03/16 10/08/19 History iron) tablet anastrozole 1 mg PO DAILY 09/08/19 10/08/19 History cholecalciferol (vitamin D3) 2,000 unit PO DAILY 09/08/19 10/08/19 History docusate sodium 100 mg PO PRN PRN 09/08/19 10/08/19 History calcitriol 0.25 mcg PO 3XW 09/17/19 10/08/19 History ergocalciferol (vitamin D2) 50,000 unit PO Q2W 09/17/19 10/08/19 History glipizide 5 mg PO QDAY 09/17/19 10/08/19 History protein 275 gm PO DAILY 09/17/19 10/08/19 History aspirin 81 mg PO DAILY tab.chew 09/23/19 10/08/19 Rx vitamin B complex-vitamin C-folic 1 tab PO QDAY #90 tab 11/02/19 Rx acid 0.8 mg tablet magnesium oxide 420 mg tablet 420 mg PO QDAY 01/01/20 History darbepoetin ayah in polysorbat 40 40 mcg SUB-Q Q4W ml 01/04/20 History mcg/mL in polysorbate injection hydrocodone 10 mg-acetaminophen 1 tab PO QID PRN tab 01/04/20 History 325 mg tablet gentamicin 0.1 % topical cream 1 applic TOPICAL ONCE #15 g 01/23/20 Rx losartan 100 mg tablet 100 mg PO DAILY #30 tab 01/23/20 Rx omega-3 acid ethyl esters 1 gram 2 cap PO BID #120 cap 01/23/20 Rx capsule potassium chloride 20 mEq 20 meq PO QDAY #90 tab 01/23/20 Rx tablet,extended release calcium acetate(phosphat bind) 667 667 mg PO .tid with meals #90 cap 03/20/20 Rx mg capsule NS sucroferric oxyhydroxide 500 mg 500 mg PO DAILY #30 tab 03/21/20 Rx chewable tablet amlodipine 10 mg tablet 5 mg PO DAILY #45 tab 05/29/20 Rx furosemide 40 mg tablet 80 mg PO QAM #180 tab 05/29/20 Rx rosuvastatin 5 mg tablet 5 mg PO HS #90 tab 05/29/20 Rx Allergies Allergy/AdvReac Type Severity Reaction Status Date / Time lisinopril AdvReac Mild Cough Verified 10/02/19 11:46 EXAM Constitutional Vitals: Temp Pulse Resp BP Pulse Ox 97.7 F 70 16 150/72 99 06/24/20 10:38 06/24/20 11:57 06/24/20 11:57 06/24/20 11:57 06/24/20 11:57 anxious and lethargic Head normocephalic Oral cavity moist No ear nose discharge Eye movement symmetrical Neck supple no lymphadenopathy S1-S2 tachycardia Nonlabored breathing Tender abdomen with rebound/peritoneal dialysis catheter site no redness Lower extremity no cyanosis clubbing or joint swelling Skin no suspicious lesion Psych no hallucination Neuro fatigue lethargic, GCS 12 DATA Data Completed and Pending Labs: Labs from last 24 hours 06/24/20 06/24/20 06/24/20 11:38 11:38 11:38 WBC Pending RBC Pending Hgb Pending Hct Pending MCV Pending MCH Pending MCHC Pending RDW Pending Plt Count Pending MPV Pending Neut % (Auto) Pending VBG Lactic Acid Pending Sodium Pending Potassium Pending Chloride Pending Carbon Dioxide Pending Anion Gap Pending BUN Pending Creatinine Pending GFR Calculation Pending Glucose Pending Calcium Pending Total Bilirubin Pending AST Pending ALT Pending Alkaline Phosphatase Pending Total Protein Pending Albumin Pending Globulin Pending Albumin/Globulin Ratio Pending A/P Narrative A/P Narrative: * Acute peritonitis-PD catheter related. Patient be managed per nephrology. Started on antibiotics per nephrology * ESRD on PD continue management per nephrology * History of HTN continue management per nephrology. At home on amlodipine/losartan * DM type II continue prandial insulin, hold glipizide * Anxiety disorder continue citalopram * Hyperlipidemia continue statin * History of chronic pain continue home dose hydrocodone * Prophylaxis Heparin Plan * Inpatient PCU admission in light of acute peritonitis/sepsis * Pancultures and antibiotics per nephrology * Dialysis per nephrology * Pre-existing medical condition management home medications * Close hemodynamic monitoring Time Spent With Patient Time: Total time spent is greater than 50% in coordination of care (as documented) at patient's floor/unit and/or counseling patient:
[2020-06-24 12:27] LABS: Basophils # (Auto) 0.05 K/mcL (0.00-0.20); Basophils % (Auto) 0.6 % (0.0-2.0); Eosinophils # (Auto) 0.43 K/mcL (0.00-0.70); Eosinophils % (Auto) 5.4 % (0.0-7.0); Hematocrit 21.9 % (36.0-48.0); Hemoglobin 7.3 g/dL (12.0-15.0); Lymphocytes # (Auto) 0.64 K/mcL (1.50-4.80); Lymphocytes % (Auto) 8.1 % (15.0-49.0); Mean Cell Volume 87.3 fL (80.0-100.0); Mean Corpuscular HGB Conc 33.3 g/dL (31.0-36.0); Mean Platelet Volume 11.1 fL (7.4-10.4); Monocytes # (Auto) 0.43 K/mcL (0.10-0.90); Monocytes % (Auto) 5.4 % (1.0-12.0); Neutrophils % (Auto) 80.5 % (38.0-78.0); Platelet Count 192 K/mcL (140-440); RBC 2.51 M/mcL (4.00-5.20); WBC 7.9 K/mcL (4.5-11.0)
[2020-06-24] MEDS ORDERED: VANCOMYCIN 1,000 MG in 0.9 % SODIUM CHLORIDE 250 ML IV ONE (12:30)
--- NOTE | 2020-06-24 12:40 | Nephrology Consult Note ---
HPI Data of Consult Patient: known to practice within the last 3 years Consult date: 06/24/20 Requesting physician: Stephen Robert Primary Care Provider: Noah Wadsworth Consult Narrative Chief complaint: Abdominal pain Reason for consult: Peritonitis associated with peritoneal dialysis History of present illness: Hedy Pizarro is a 64-year-old female with end stage renal disease on peritoneal dialysis, chronic anemia due to ESRD, hypertension, diabetes mellitus type 2, presented to ED on 06/24/20 for abdominal pain. She was seen in the PD clinic yesterday. She had abdominal pain with IDPN filling. A PD fluid sample was obtained and sent for cell count, gram stain and culture. Results were obtained this morning and consistent with acute peritonitis associated with peritoneal dialysis. She has not been doing her exchanges due to abdominal pain. Nephrology consultation was requested. cc:: CC: Constitutional Constitutional: Present anorexia and weakness EENT Eyes: Absent change in vision Nose, mouth and throat: Absent sore throat Cardiovascular Cardiovascular: Absent chest pain and leg edema Respiratory Respiratory: Absent cough and dyspnea Gastrointestinal Gastrointestinal: Present abdominal pain Genitourinary Additional comments: minimal urine output Integumentary Integumentary: Absent rash and wounds Neurological Neurological: Present weakness; Absent confusion Psychiatric Psychiatric: Absent anxiety and panic attacks Endocrine Endocrine: Absent cold intolerance and heat intolerance Hematologic/Lymphatic Hematologic/Lymphatic: Absent easy bleeding Allergic/Immunologic Allergic/Immunologic: Absent tongue swelling and uticaria PFSH PFSH All Active Problems (Updated 06/24/20 @ 13:33 by Stephen Robert MD) Abdominal pain (Acute) Diabetic gastroparesis (Acute) Diabetes mellitus out of control (Acute) Secondary hyperparathyroidism of renal origin (Chronic) ESRD on peritoneal dialysis (Acute) Right lower quadrant pain (Acute) Liver cirrhosis (Chronic) Diarrhea (Acute) History of peritonitis (Acute) Hypoglycemia (Acute) Hypoglycemia (Acute) Peritonitis (Acute) ESRD (end stage renal disease) (Acute) Micronodular cirrhosis (Acute) Anemia in ESRD (end-stage renal disease) (Chronic) End-stage renal disease on peritoneal dialysis (Chronic) Peritonitis associated with peritoneal dialysis (Acute) Hyponatremia (Chronic) Peritonitis (Acute) Intractable abdominal pain (Acute) Hypokalemia (Acute) Chronic hypertension (Chronic) Diabetes mellitus (Chronic) Peritoneal dialysis catheter in situ (Chronic) 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) Breast cancer (Chronic) Acute cervical sprain (Acute) Right-sided chest wall pain (Acute) H/O colonoscopy (Acute 08/14/07) Anemia (Chronic) History of cholecystectomy (Acute) Proteinuria (Acute) Peripheral neuropathy (Acute) Obesity (Acute) Heart murmur, systolic (Acute) Metabolic acidosis (Chronic) Hypertensive renal disease (Chronic 06/13/13) Hypertension, essential (Acute) Hyperlipemia (Acute) Heart murmur (Acute) Diabetes mellitus, type II (Chronic) 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) Degenerative joint disease (Acute) Carpal tunnel syndrome (Acute) Chronic back pain (Acute) Anemia, iron deficiency (Chronic 06/13/13) Anemia in chronic kidney disease (CKD) (Acute) Medical History Anemia Anemia in chronic kidney disease (CKD) Anemia, iron deficiency (06/13/13) Breast cancer Carpal tunnel syndrome Chronic back pain Chronic hypertension Chronic kidney disease (CKD), stage V most recent s..creatinine is 3.5 from 3.7 which equals to egfr of 13ml/min per MDRD equation, stable for now, BUN is upto 76, no uremic symptoms s.creatinine has trended up from 3.2 to 3.5 to 4.3-3.5-4.0-3.7-3.5 renal function fluctuating between 3.5-4.0 no uremic symptoms will try and get medicare, if this happens has a potential living donor for pre emptive transplant if not then she will need to get started on HD, not interested on home modality Will follow CKD (chronic kidney disease), stage II CKD (chronic kidney disease), stage IV Her sCr on most recent labs is 3.8 from 3.2 which equals to eGFR of 12.9 ml/min per MDRD equation. There is a ? of volume depletion , despite of increased water intake in the setting of yard work and high temps. Her risk factors include HTN, DMT2 which are well controlled at this time. Pt will monitor BPs, BSs. Pt will increase her fluid intake and have labs repeated in 10 days If renal function does not improve, pt will be referred for AVF placement. Degenerative joint disease Diabetes mellitus Diabetes mellitus, type II States BS very much controlled. Care deferred to PCP. ct current medications Ductal carcinoma in situ (DCIS) of left breast Full dentures Heart murmur Heart murmur, systolic Hyperkalemia (06/13/13) Hyperlipemia Hypertension, essential Hypertensive renal disease (06/13/13) BP at goal ct losartan and amlodipine and diuretics and hydralazine follow low sodium diet Metabolic acidosis Obesity Peripheral neuropathy proteinu Peritoneal dialysis catheter in situ Proteinuria Has microalb/Cr ratio of ~ 1450 mg/g - hx of DMT2, HTN, obesity w/u negative for ESTEPHANIE, complements are wnl and serum/urine CARINA are negative is on losartan which has a renoprotective effect. 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: 4 children smoking status: Never smoker alcohol intake frequency: does not drink additional history: Patient quit smoking 30 years ago Denies current alcohol use Ambulates with a walker Lives at home with family MEDS/ALLERGIES Home Medications and Allergies Home Medications Medication Instructions Recorded Confirmed Type citalopram 10 mg tablet 20 mg PO HS tab 09/30/14 10/08/19 History cyanocobalamin (vitamin B-12) 2,500 mcg SUBLINGUAL QDAY tab 09/30/14 10/08/19 History 2,500 mcg sublingual tablet ferrous sulfate 325 mg (65 mg 325 mg PO BID 02/03/16 10/08/19 History iron) tablet anastrozole 1 mg PO DAILY 09/08/19 10/08/19 History cholecalciferol (vitamin D3) 2,000 unit PO DAILY 09/08/19 10/08/19 History docusate sodium 100 mg PO PRN PRN 09/08/19 10/08/19 History calcitriol 0.25 mcg PO 3XW 09/17/19 10/08/19 History ergocalciferol (vitamin D2) 50,000 unit PO Q2W 09/17/19 10/08/19 History glipizide 5 mg PO QDAY 09/17/19 10/08/19 History protein 275 gm PO DAILY 09/17/19 10/08/19 History aspirin 81 mg PO DAILY tab.chew 09/23/19 10/08/19 Rx vitamin B complex-vitamin C-folic 1 tab PO QDAY #90 tab 11/02/19 Rx acid 0.8 mg tablet magnesium oxide 420 mg tablet 420 mg PO QDAY 01/01/20 History darbepoetin ayah in polysorbat 40 40 mcg SUB-Q Q4W ml 01/04/20 History mcg/mL in polysorbate injection hydrocodone 10 mg-acetaminophen 1 tab PO QID PRN tab 01/04/20 History 325 mg tablet gentamicin 0.1 % topical cream 1 applic TOPICAL ONCE #15 g 01/23/20 Rx losartan 100 mg tablet 100 mg PO DAILY #30 tab 01/23/20 Rx omega-3 acid ethyl esters 1 gram 2 cap PO BID #120 cap 01/23/20 Rx capsule potassium chloride 20 mEq 20 meq PO QDAY #90 tab 01/23/20 Rx tablet,extended release calcium acetate(phosphat bind) 667 667 mg PO .tid with meals #90 cap 03/20/20 Rx mg capsule NS sucroferric oxyhydroxide 500 mg 500 mg PO DAILY #30 tab 03/21/20 Rx chewable tablet amlodipine 10 mg tablet 5 mg PO DAILY #45 tab 05/29/20 Rx furosemide 40 mg tablet 80 mg PO QAM #180 tab 05/29/20 Rx rosuvastatin 5 mg tablet 5 mg PO HS #90 tab 05/29/20 Rx Allergies Allergy/AdvReac Type Severity Reaction Status Date / Time lisinopril AdvReac Mild Cough Verified 10/02/19 11:46 Physical Examination Vital Signs Vital signs: Temp Pulse Resp BP Pulse Ox 97.7 F 70 16 150/72 99 06/24/20 10:38 06/24/20 11:57 06/24/20 11:57 06/24/20 11:57 06/24/20 11:57 General Appearance General appearance: chronically ill, fatigue and frail EENT EENT: mucous membranes dry Neck Neck: supple Respiratory Respiratory: clear Cardiovascular Cardiology: no edema and regular rate Gastrointestinal Gastrointestinal: tenderness Integumentary Integumentary: warm and dry Neurologic Neurologic: no focal deficit and alert and oriented x3 Musculoskeletal Musculoskeletal: no deformities Psychiatric Psychiatric: mood/affect appropriate and cooperative Results Lab Results Result Diagrams: 06/24/20 11:38 06/24/20 11:38 A/P Assessment and plan (1) Peritonitis associated with peritoneal dialysis: Assessment and plan: Hedy Pizarro is a 64-year-old female with end stage renal disease on peritoneal dialysis, chronic anemia due to ESRD, hypertension, diabetes mellitus type 2, presented to ED on 06/24/20 for abdominal pain. She was seen in the PD clinic yesterday. She had abdominal pain with IDPN filling. A PD fluid sample was obtained and sent for cell count, gram stain and culture. Results were obtained this morning and consistent with acute peritonitis associated with peritoneal di alysis. She has not been doing her exchanges due to abdominal pain. Nephrology consultation was requested. Acute peritonitis associated with peritoneal dialysis. End stage renal disease on peritoneal dialysis. Chronic anemia due to ESRD. Work up: PD fluid on 06/23/20: Nucleated cells 9,252 Differential: Neutrophils 91%, Lymphocytes 1%, Monocytes/Macrophages 8%. Bacterial and fungal culture pending. Recommendations/Plan: Admission to [facility] due to inability to continue peritoneal dialysis at home and antibiotic therapy without delay. Vancomycin 1 g IV x 1 and Cefepime 1 g IV x 1. Blood cultures obtained before antibiotics. Continue CCPD with 2.5% peritoneal dialysis solution, total volume 8,000 ml, 4 exchanges overnight, total time 8 hours, last fill 300 ml. Avoid narcotic pain management. Acetaminophen PO/IV as initial medication. She will likely need to switch to hemodialysis due to frequent peritonitis and inadequacy. Tunneled hemodialysis catheter will be arranged at [facility] after blood cultures are negative and she is stable. Status: Acute Qualifiers: Encounter type: subsequent encounter Qualified Code(s): T85.71XD - Infection and inflammatory reaction due to peritoneal dialysis catheter, subsequent encounter (2) End-stage renal disease on peritoneal dialysis: Status: Chronic (3) Anemia in ESRD (end-stage renal disease): Status: Chronic Time Spent With Patient Time: Total time spent is greater than 50% in coordination of care (as documented) at patient's floor/unit and/or counseling patient:
[2020-06-24 12:55] LABS: ALT/SGPT 15 U/L (<40); AST/SGOT 17 U/L (<32); Albumin 2.9 gm/dL (3.2-5.2); Albumin/Globulin Ratio 0.7 (1.0-2.3); Alkaline Phosphatase 192 U/L (39-117); Bilirubin,Total 0.4 mg/dL (0.1-1.0); Blood Urea Nitrogen 101 mg/dL (8-23); Calcium 7.3 mg/dL (8.6-10.4); Carbon Dioxide 21 mmol/L (22-30); Chloride 92 mmol/L (96-108); Globulin 4.1 gm/dL (2.2-3.7); Glomerular Filtration Rate 3; Glucose 100 mg/dL (70-105)
[2020-06-24] MEDS ORDERED: POLYETHYLENE GLYCOL 3350 17 GM PACKET PO PRN (14:41)
[2020-06-24] MEDS ORDERED: BISACODYL 10 MG SUPP.RECT PR PRN (14:41)
[2020-06-24] MEDS ORDERED: ACETAMINOPHEN 650 MG/65 ML BAG IV PRN (14:41)
[2020-06-24] MEDS ORDERED: ONDANSETRON 4 MG ODT TABLET SL PRN (14:41)
[2020-06-24] MEDS ORDERED: ONDANSETRON 4 MG/2 ML VIAL IV PRN (14:41)
[2020-06-24] MEDS ORDERED: ACETAMINOPHEN 1,000 MG/100 ML BAG IV PRN (15:49)
[2020-06-24] MEDS: 0.9 % SODIUM CHLORIDE 10 ML SYRINGE IV SCH ×2 (15:54→22:41)
[2020-06-24] MEDS ORDERED: CALCIUM ACETATE 667 MG CAPSULE PO PRN (16:04)
[2020-06-24] MEDS ORDERED: HYDROcodone/APAP 10/325MG TABLET PO PRN (16:04)
[2020-06-24] MEDS ORDERED: SUCROFERRIC OXYHYDROXIDE 500 MG PO SCH (17:00)
[2020-06-24] MEDS: CALCIUM ACETATE 667 MG CAPSULE PO SCH (17:19)
[2020-06-24] MEDS ORDERED: NON FORMULARY MEDICATION 1 DOSE MISCELL (Rosuvastatin 5 mg tablet) PO SCH (21:00)
[2020-06-24] MEDS ORDERED: MELATONIN 3 MG TABLET PO PRN (21:00)
[2020-06-24] MEDS: HEPARIN 5,000 UNIT/ML VIAL SQ SCH (21:52)
[2020-06-24] MEDS: DOCUSATE SODIUM 100 MG CAPSULE PO SCH (22:05)
[2020-06-24] MEDS: SENNOSIDES/DOCUSATE SODIUM 1 TAB TABLET PO SCH (22:05)
[2020-06-24] MEDS: ACETAMINOPHEN 325 MG TABLET PO PRN (22:08)
[2020-06-24] MEDS: SEVELAMER 800 MG TABLET PO SCH (22:09)
[2020-06-25] MEDS: 0.9 % SODIUM CHLORIDE 10 ML SYRINGE IV SCH ×3 (05:41→20:37)
[2020-06-25 07:55] LABS: Basophils # (Auto) 0.03 K/mcL (0.00-0.20); Basophils % (Auto) 0.4 % (0.0-2.0); Eosinophils # (Auto) 0.35 K/mcL (0.00-0.70); Hematocrit 20.9 % (36.0-48.0); Hemoglobin 6.8 g/dL (12.0-15.0); Lymphocytes # (Auto) 0.77 K/mcL (1.50-4.80); Lymphocytes % (Auto) 10.9 % (15.0-49.0); Mean Cell Volume 87.8 fL (80.0-100.0); Mean Corpuscular HGB Conc 32.5 g/dL (31.0-36.0); Mean Platelet Volume 11.1 fL (7.4-10.4); Monocytes % (Auto) 5.7 % (1.0-12.0); Platelet Count 177 K/mcL (140-440); RBC 2.38 M/mcL (4.00-5.20); Red Cell Distribution Width 13.8 % (11.5-14.5)
[2020-06-25 08:14] LABS: ALT/SGPT 13 U/L (<40); AST/SGOT 13 U/L (<32); Albumin 2.6 gm/dL (3.2-5.2); Albumin/Globulin Ratio 0.7 (1.0-2.3); Alkaline Phosphatase 169 U/L (39-117); Bilirubin,Direct < 0.2 mg/dL (0-0.3); Bilirubin,Total 0.3 mg/dL (0.1-1.0); Blood Urea Nitrogen 100 mg/dL (8-23); Calcium 7.3 mg/dL (8.6-10.4); Carbon Dioxide 24 mmol/L (22-30); Chloride 92 mmol/L (96-108); Globulin 3.5 gm/dL (2.2-3.7); Glomerular Filtration Rate 3; Glucose 152 mg/dL (70-105); Lactate Dehydrogenase 133 U/L (135-225); Phosphorous 9.2 mg/dL (2.5-4.5); Triglycerides 81 mg/dL (<150)
[2020-06-25] MEDS ORDERED: VITAMIN B COMPLEX 1 CAPSULE PO SCH (09:00)
[2020-06-25] MEDS ORDERED: MAGNESIUM OXIDE 400 MG TABLET PO SCH (09:00)
[2020-06-25] MEDS ORDERED: CYANOCOBALAMIN (VITAMIN B-12) 2,500 MCG TAB.SUBL SL SCH (09:00)
[2020-06-25] MEDS ORDERED: CITALOPRAM 20 MG TABLET PO SCH (09:00)
[2020-06-25] MEDS ORDERED: amLODIPine 5 MG TABLET PO SCH (09:00)
[2020-06-25] MEDS ORDERED: MULTIVIT,THER IRON,CA,FA & MIN 1 TABLET PO SCH (09:00)
[2020-06-25] MEDS ORDERED: FUROSEMIDE 40 MG TABLET PO SCH (09:00)
[2020-06-25] MEDS: DOCUSATE SODIUM 100 MG CAPSULE PO SCH ×2 (09:08→20:37)
[2020-06-25] MEDS: HEPARIN 5,000 UNIT/ML VIAL SQ SCH ×2 (09:09→20:34)
[2020-06-25] MEDS: CALCIUM ACETATE 667 MG CAPSULE PO SCH ×3 (09:09→16:48)
[2020-06-25] MEDS: SEVELAMER 800 MG TABLET PO SCH ×5 (09:09→20:34)
[2020-06-25] MEDS ORDERED: VANCOMYCIN PER PHARMACY IV SCH (09:10)
--- NOTE | 2020-06-25 09:12 | Nephrology Progress Note ---
SUBJECTIVE Subjective Patient information: Note initiated : 06/25/20 at 9:11 am Patient: Hedy Pizarro 64 y/o F admitted on 06/24/20 for abd pain. Chief Complaint: Abdominal pain Pertinent ROS: Constitutional: Present anorexia and weakness Eyes: Absent change in vision Nose, mouth and throat: Absent sore throat Cardiovascular: Absent chest pain and leg edema Respiratory: Absent cough and dyspnea Gastrointestinal: Present abdominal pain Urinary: Minimal urine output Integumentary: Absent rash and wounds Neurological: Present weakness; Absent confusion Psychiatric: Absent anxiety and panic attacks Endocrine: Absent cold intolerance and heat intolerance Hematologic/Lymphatic: Absent easy bleeding Allergic/Immunologic: Absent tongue swelling and uticaria Constitutional Vitals: Vital Signs Temp Pulse Resp BP Pulse Ox 96.8 F L 67 16 152/63 97 06/25/20 08:00 06/25/20 08:00 06/25/20 08:00 06/25/20 08:00 06/25/20 08:00 Period Temp Pulse Resp BP Sys/Loaiza Pulse Ox Last 24 Hr 96.8 F-99.0 F 64-72 14-27 120-154/60-73 92-100 Intake and Output 06/24/20 06/25/20 06/25/20 21:59 05:59 13:59 Intake Total 250 240 240 Balance 250 240 240 Weight 151 lb 3.2 oz Intake & Output: Intake & Output 06/24/20 06/25/20 06/25/20 21:59 05:59 13:59 Intake Total 250 240 240 Balance 250 240 240 Weight 151 lb 3.2 oz Intake: IV 250 Vancomycin 1,000 mg In Sodium 250 Chloride 0.9% 250 ml @ 250 mls/ hr IV ONCE ONE Rx#:[id number] Oral 240 240 Other: Meal Lunch Percent of Meal Consumed 100% Stool Size Small Small Small Stool Color Brown Brown Green Stool Consistency Soft Soft Formed # Bowel Movements 1 Additional findings Additional findings: General appearance: chronically ill, fatigue and frail EENT: mucous membranes dry Neck: supple Respiratory: clear Cardiology: no edema and regular rate Gastrointestinal: tenderness Integumentary: warm and dry Neurologic: no focal deficit and alert and oriented x3 Musculoskeletal: no deformities Psychiatric: mood/affect appropriate and cooperative A/P Assessment and plan (1) Peritonitis associated with peritoneal dialysis: Assessment and plan: Hedy Pizarro is a 64-year-old female with end stage renal disease on peritoneal dialysis, chronic anemia due to ESRD, hypertension, diabetes mellitus type 2, presented to ED on 06/24/20 for abdominal pain. She was seen in the PD clinic yesterday. She had abdominal pain with IDPN filling. A PD fluid sample was obtained and sent for cell count, gram stain and culture. Results were obtained this morning and consistent with acute peritonitis associated with peritoneal dialysis. She has not been doing her exchanges due to abdominal pain. Nephrology consultation was requested. Acute peritonitis associated with peritoneal dialysis. End stage renal disease on peritoneal dialysis. with inadequate clearance. Acute blood loss anemia (bloody peritoneal fluid) on chronic anemia due to ESRD. Work up: PD fluid on 06/23/20: Nucleated cells 9,252 Differential: Neutrophils 91%, Lymphocytes 1%, Monocytes/Macrophages 8%. Bacterial and fungal culture of peritoneal fluid on 06/23/20: Pending. Blood cultures obtained before antibiotics on 06/24/20: Pending. Progress: Not septic, transferred to [facility]. Bloody peritoneal fluid with decreasing Hb trend. Most recent Hb <7.0. Recommendations/Plan: CT Abdomen and Pelvis wo contrast stat for bloody peritoneal dialysis fluid drain with decreasing Hb trend. 2 units PRBC transfusion. Vancomycin and Cefepime IV day#2. IP not administered so far due to problems with peritoneal dialysis (bloody drain). Continue CCPD with 2.5% peritoneal dialysis solution, total volume 8,000 ml, 4 exchanges overnight, total time 8 hours, last fill 300 ml. Avoid narcotic pain management. Acetaminophen PO/IV as initial medication. She will need to switch to hemodialysis due to frequent peritonitis and inadequacy. Tunneled hemodialysis catheter will be arranged at [facility] after blood cultures are negative and she is stable. Status: Acute Qualifiers: Encounter type: subsequent encounter Qualified Code(s): T85.71XD - Infection and inflammatory reaction due to peritoneal dialysis catheter, subsequent encounter (2) Acute blood loss anemia: Status: Acute (3) End-stage renal disease on peritoneal dialysis: Status: Chronic (4) Anemia in ESRD (end-stage renal disease): Status: Chronic Time Spent With Patient Time: Total time spent is greater than 50% in coordination of care (as documented) at patient's floor/unit and/or counseling patient:
[2020-06-25] MEDS: HYDROcodone/APAP 10/325MG TABLET PO PRN ×2 (09:15→19:22)
[2020-06-25] MEDS ORDERED: 0.9 % SODIUM CHLORIDE 250 ML IV SCH (09:15)
--- NOTE | 2020-06-25 10:22 | Cat Scan Report ---
History: Renal failure, bloody peritoneal dialysis drainage, breast cancer TECHNIQUE: The abdomen was imaged without contrast from the diaphragm to the symphysis pubis. Sagittal and coronal reformats were created. The radiation exposure was limited using dose reduction technology. There are several bands of atelectasis in both lung bases including the inferior segment of the lingula. Tiny bilateral layering pleural effusions are present. Evaluation of the abdominal organs without contrast is somewhat limited. The liver and spleen are normal in size and homogeneous. The gallbladder has been removed since the time of the prior CT done on 10/02/19. Bile ducts are nondilated. No abnormality is detected in the pancreas. The adrenals are normal and symmetric. There is atrophy of both kidneys. There is no renal mass and no hydronephrosis is present. There is severe atherosclerosis of the main renal arteries and the interlobar branches. The urinary bladder is completely decompressed. The uterus is atrophic and anteverted and contains extensive vascular calcifications in the myometrium and the adnexa. Neither ovary can be identified. A moderate amount of fluid is present in the peritoneal space there also several bubbles of air within the fluid anterior and superior to the liver. There is a percutaneous peritoneal dialysis catheter. It enters the peritoneal cavity in the midline of the upper pelvis. The catheter is looped beneath the peritoneal surface anteriorly in the right mid pelvis. The catheter is intact. There is a small amount of fluid around the tip of the catheter. Most of the peritoneal fluid is located in the left side of the abdomen and in the right upper quadrant, away from the catheter. Where the catheter enters the peritoneal space, there is is some thickening of the surrounding soft tissues and small bubbles of air. No intra-abdominal abscess or mass are identified. Severe atherosclerosis is seen in the aorta and all of the visceral branches throughout the abdomen and pelvis, extending into the groin. Bone windows show no lytic or blastic metastasis. No adenopathy is seen within the abdomen. Comparison with the prior exam done on 10/02/19 shows the volume of perineal fluid is greater today than it was previously. More intraperitoneal air is seen today than on the prior study. The dialysis catheter has shifted in location. Previously it was looped in the left lower pelvis. IMPRESSION: Moderate amount of fluid in the peritoneal space throughout the abdomen and pelvis with several bubbles of air. This is probably related to the peritoneal dialysis procedure. Small bubbles of gas around the catheter in the anterior abdominal wall. This is nonspecific and could be due to instrumentation or less likely infection with gas-forming organism. The source of the bloody peritoneal fluid is not identified on this study. No evidence of metastasis Interpreted and Authenticated by: Edil Mccormack 06/25/20
[2020-06-25 13:24] LABS: Vancomycin,Random < 4.0 ug/mL
[2020-06-25] MEDS ORDERED: CEFEPIME 1 GM VIAL IV SCH (14:00)
--- NOTE | 2020-06-25 15:03 | Internal Med Progress Note ---
SUBJECTIVE Subjective Patient information: Note initiated : 06/25/20 at 2:58 pm Service Date, if different from initiated Date: [] Patient: Hedy Pizarro a 64 y/o F admitted on 06/24/20 for abd pain. Chief Complaint: [] Interval history: Ms. Pizarro is a 64 year old F with a history of ESRD on peritoneal dialysis/HTN/anxiety/DM type II/HLD. Patient lives with her son at [facility] and follows up at the [facility] and [facility] nephrology. Her daughter Lesley is her primary healthcare translator. Over the last 4 days patient has noted increasing burning sensation abdominal discomfort. She tried to reach nephrology clinic on Tuesday and left a message. Over the next couple of days her symptoms continue to progress with increasing lethargic burning sensation discomfort and loss of appetite. She presented today to the ER due to above. Initial work-up in the ER was consistent with acute peritonitis related to peritoneal dialysis. Patient was started on antibiotic coverage after nephrology was consulted. Subsequently hospitalist service was consulted for admission. White count 7.9, creatinine 12.9/BUN 101/potassium 3.4. Peritoneal fluid evaluation nucleated cells 7 6290% neutrophils, cultures pending. At the time of my evaluation patient is alert but very anxious. She is accompanied with her daughter Lesley. She is able to provide answer most of the questions and endorse history as above. She denies diarrhea, dysuria, head ache, photophobia endorses to low-grade fever, malaise, loss of appetite and gradual loss of functional ability. She actually provides care for her disabled son which he has not been able to do so over the last 4 days. 06/25-patient complains of abdominal discomfort/burning sensation. Staff/dialys is nurse noted bloody dialysate peritoneal aspirate. Hemoglobin 6.8. 2 units PRBC ordered per nephrology. CT abdomen no acute process. On antibiotic coverage for peritonitis per nephrology. Dialysis and electrolyte management ongoing per nephrology. No other concerns per nursing staff. Patient seen in room. Appears fatigued lethargic. Constitutional Vitals: Vital Signs Temp Pulse Resp BP Pulse Ox 97.6 F 67 18 141/62 93 06/25/20 13:00 06/25/20 13:00 06/25/20 13:00 06/25/20 13:00 06/25/20 12:55 Period Temp Pulse Resp BP Sys/Loaiza Pulse Ox Last 24 Hr 96.8 F-99.0 F 66-72 16-27 135-152/61-67 92-97 Intake and Output 06/25/20 06/25/20 06/25/20 05:59 13:59 21:59 Intake Total 240 330 Balance 240 330 Weight 68.583 kg Patient Weight 06/26/20 05:59 Weight 68.583 kg Fatigue lethargic Abdominal discomfort on palpation No lymphedema Intake & Output: Intake & Output 06/25/20 06/25/20 06/25/20 05:59 13:59 21:59 Intake Total 240 330 Balance 240 330 Weight 68.583 kg Intake: Oral 240 330 Other: Meal Lunch Percent of Meal Consumed 75% Feeding Ability Independent Stool Size Small Smear Stool Color Brown Brown Green Stool Consistency Soft Soft Formed # Bowel Movements 1 OBJ DATA Labs CBC & Chem 7: 06/25/20 05:59 06/25/20 05:59 Labs: Abnormal Lab Results 06/25/20 06/25/20 06/24/20 05:59 05:59 11:38 RBC 2.38 L Hgb 6.8 L* Hct 20.9 L* MPV 11.1 H Neut % (Auto) Lymph % (Auto) 10.9 L Lymph # (Auto) 0.77 L Chloride 92 L 92 L Carbon Dioxide 21 L Anion Gap 19.0 H 21.0 H BUN 100 H* 101 H* Creatinine 13.0 H* 12.9 H* Glucose 152 H Calcium 7.3 L 7.3 L Phosphorus 9.2 H* Magnesium 1.5 L GGT 54 H Alkaline Phosphatase 169 H 192 H Lactate Dehydrogenase 133 L Albumin 2.6 L 2.9 L Globulin 4.1 H Albumin/Globulin Ratio 0.7 L 0.7 L 06/24/20 11:38 RBC 2.51 L Hgb 7.3 L Hct 21.9 L MPV 11.1 H Neut % (Auto) 80.5 H Lymph % (Auto) 8.1 L Lymph # (Auto) 0.64 L Chloride Carbon Dioxide Anion Gap BUN Creatinine Glucose Calcium Phosphorus Magnesium GGT Alkaline Phosphatase Lactate Dehydrogenase Albumin Globulin Albumin/Globulin Ratio Meds: Medications Acetaminophen (Acetaminophen 325 Mg Tablet) 650 mg PO Q4-6HP PRN; Protocol PRN Reason: Per Pain Protocol/Fever > 101 Last Admin: 06/24/20 22:08 Dose: 650 mg Documented by: Hydrocodone Bitart/Acetaminophen (Hydrocodone/Apap 10/325mg Tablet) 1 tab PO QIDP PRN; Protocol PRN Reason: Pain Last Admin: 06/25/20 09:15 Dose: 1 tab Documented by: Amlodipine Besylate (Amlodipine 5 Mg Tablet) 5 mg PO DAILY [facility] Last Admin: 06/25/20 09:08 Dose: 5 mg Documented by: Atorvastatin Calcium (Atorvastatin 10 Mg Tablet) 10 mg PO HS [facility] Bisacodyl (Bisacodyl 10 Mg Supp.Rect) 10 mg MI Q2-3DAYS PRN PRN Reason: Constipation Calcium Acetate (Calcium Acetate 667 Mg Capsule) 667 mg PO PRN PRN PRN Reason: With meals and snacks Calcium Acetate (Calcium Acetate 667 Mg Capsule) 667 mg PO TIDCC [facility] Last Admin: 06/25/20 12:08 Dose: 667 mg Documented by: Citalopram Hydrobromide (Citalopram 20 Mg Tablet) 20 mg PO DAILY [facility] Last Admin: 06/25/20 09:08 Dose: 20 mg Documented by: Cyanocobalamin (Cyanocobalamin (Vitamin B-12) 2,500 Mcg Tab.Subl) 2,500 mcg SL QDAY [facility] Last Admin: 06/25/20 09:09 Dose: 2,500 mcg Documented by: Docusate Sodium (Docusate Sodium 100 Mg Capsule) 100 mg PO BID [facility] Last Admin: 06/25/20 09:08 Dose: 100 mg Documented by: Furosemide (Furosemide 40 Mg Tablet) 80 mg PO QAM [facility] Last Admin: 06/25/20 09:08 Dose: 80 mg Documented by: Heparin Sodium (Porcine) (Heparin 5,000 Unit/Ml Vial) 5,000 unit SQ Q12 [facility] Last Admin: 06/25/20 09:09 Dose: Not Given Documented by: Acetaminophen (Ofirmev) 1,000 mg in 100 mls @ 200 mls/hr IV Q6HP PRN; Protocol PRN Reason: PAIN/FEVER > 101 Sodium Chloride (Sodium Chloride 0.9%) 250 mls @ 20 mls/hr IV .[id number] [facility] Stop: 06/25/20 21:44 Last Admin: 06/25/20 12:50 Dose: 20 mls/hr Documented by: Vancomycin HCl 1,000 mg/ (Sodium Chloride) 250 mls @ 250 mls/hr IV ONCE ONE Stop: 06/25/20 18:59 Iron Carb/Multivit/[place]/Folic Acid (Multivit,Ther Iron,Ca,Fa & Min 1 Tablet) 1 tab PO DAILY [facility] Last Admin: 06/25/20 09:09 Dose: 1 tab Documented by: Magnesium Oxide (Magnesium Oxide 400 Mg Tablet) 400 mg PO DAILY [facility] Last Admin: 06/25/20 09:08 Dose: 400 mg Documented by: Melatonin (Melatonin 3 Mg Tablet) 3 mg PO HSP PRN PRN Reason: Insomnia Ondansetron HCl (Ondansetron 4 Mg Odt Tablet) 4 mg SL Q4-6HP PRN; Protocol PRN Reason: Nausea And Vomiting Ondansetron HCl (Ondansetron 4 Mg/2 Ml Vial) 4 mg IV Q4-6HP PRN; Protocol PRN Reason: Nausea And Vomiting Anastrozole 1 Mg (Tablet) 1 dose PO DAILY [facility] Last Admin: 06/25/20 09:09 Dose: Not Given Documented by: Sucroferric Oxyhydroxide [ Velphoro] 500 Mg Tablet 1 dose PO DAILY@1700 [facility] Polyethylene Glycol (Polyethylene Glycol 3350 17 Gm Packet) 17 gm PO DAILYP PRN PRN Reason: Constipation Senna/Docusate Sodium (Sennosides/Docusate Sodium 1 Tab Tablet) 1 tab PO HS [facility] Last Admin: 06/24/20 22:05 Dose: Not Given Documented by: Sevelamer Carbonate (Sevelamer 800 Mg Tablet) 1,600 mg PO TID [facility] Last Admin: 06/25/20 12:08 Dose: 1,600 mg Documented by: Sodium Chloride (0.9 % Sodium Chloride 10 Ml Syringe) 10 ml IV Q8 [facility] Last Admin: 06/25/20 13:44 Dose: Not Given Documented by: Vancomycin HCl (Vancomycin Per Pharmacy) 1 order IV UD [facility]; Protocol Vitamin B Complex (Vitamin B Complex 1 Capsule) 1 cap PO DAILY [facility] Last Admin: 06/25/20 09:08 Dose: 1 cap Documented by: A/P Narrative A/P Narrative: * Acute peritonitis-PD catheter related. Ongoing management per nephrology. On antibiotic coverage * ESRD on PD continue management per nephrology * Electrolyte abnormality management per nephrology * Blood loss anemia-management per nephrology. Ongoing units PRBC transfusion * History of HTN continue management per nephrology. At home on amlodipine/losartan Issues managed by hospitalist service * DM type II continue prandial insulin, glipizide on hold. On CCD * Anxiety disorder continue citalopram * Hyperlipidemia continue statin * History of chronic pain continue home dose hydrocodone * Prophylaxis -heparin held in light of intraperitoneal bleed Plan * Continue peritonitis/electrolytes, dialysis and anemia management per nephrology * Pre-existing medical condition management home medications * Continue close hemodynamic monitoring * Nutrition support/therapies as tolerated Time Spent With Patient Time: Total time spent is greater than 50% in coordination of care (as documented) at patient's floor/unit and/or counseling patient:
[2020-06-25] MEDS ORDERED: VANCOMYCIN 1,000 MG in 0.9 % SODIUM CHLORIDE 250 ML IV ONE (18:00)
[2020-06-25] MEDS: ACETAMINOPHEN 325 MG TABLET PO PRN (20:32)
[2020-06-25] MEDS: SENNOSIDES/DOCUSATE SODIUM 1 TAB TABLET PO SCH (20:37)
[2020-06-25] MEDS ORDERED: ATORVASTATIN 10 MG TABLET PO SCH (21:00)
--- NOTE | 2020-06-25 21:01 | Nephrology Progress Note ---
SUBJECTIVE Subjective Patient information: Addendum Note initiated : 06/25/20 at 8:58 pm Patient: Hedy Pizarro 64 y/o F admitted on 06/24/20 for abd pain. Chief Complaint: Abdominal pain and bloody peritoneal fluid drain. Constitutional Vitals: Vital Signs Temp Pulse Resp BP Pulse Ox 98.0 F 74 21 114/97 94 06/25/20 20:20 06/25/20 19:25 06/25/20 19:25 06/25/20 20:20 06/25/20 19:25 Period Temp Pulse Resp BP Sys/Loaiza Pulse Ox Last 24 Hr 96.8 F-99.0 F 66-74 16-26 114-155/61-97 92-97 Intake and Output 06/25/20 06/25/20 06/25/20 05:59 13:59 21:59 Intake Total 338 097 8162 Balance 515 804 7317 Weight 154 lb 3.2 oz Patient Weight 06/26/20 05:59 Weight 154 lb 3.2 oz Intake & Output: Intake & Output 06/25/20 06/25/20 06/25/20 05:59 13:59 21:59 Intake Total 434 836 1378 Balance 505 043 9127 Weight 154 lb 3.2 oz Intake: IV 250 Vancomycin 1,000 mg In Sodium 250 Chloride 0.9% 250 ml @ 250 mls/ hr IV ONCE ONE Rx#:[id number] Oral 240 330 240 Blood Product 608 Other: Meal Lunch Dinner Percent of Meal Consumed 75% 100% Feeding Ability Independent Stool Size Small Smear Stool Color Brown Brown Green Stool Consistency Soft Soft Formed # Bowel Movements 1 A/P Assessment and plan (1) Peritonitis associated with peritoneal dialysis: Assessment and plan: Hedy Pizarro is a 64-year-old female with end stage renal disease on peritoneal dialysis, chronic anemia due to ESRD, hypertension, diabetes mellitus type 2, presented to ED on 06/24/20 for abdominal pain. She was seen in the PD clinic yesterday. She had abdominal pain with IDPN filling. A PD fluid sample was o btained and sent for cell count, gram stain and culture. Results were obtained this morning and consistent with acute peritonitis associated with peritoneal dialysis. She has not been doing her exchanges due to abdominal pain. Nephrology consultation was requested. Acute peritonitis associated with peritoneal dialysis. End stage renal disease on peritoneal dialysis since 2016. Acute blood loss anemia (bloody peritoneal fluid) on chronic anemia due to ESRD. Work up: PD fluid on 06/23/20: Nucleated cells 9,252 Differential: Neutrophils 91%, Lymphocytes 1%, Monocytes/Macrophages 8%. Bacterial and fungal culture of peritoneal fluid on 06/23/20: Coag negative Staph reported verbally. Blood cultures obtained before antibiotics on 06/24/20: No growth so far. CT Abdomen and Pelvis wo contrast on 06/25/20: Moderate amount of fluid in the peritoneal space throughout the abdomen and pelvis with several bubbles of air. This is probably related to the peritoneal dialysis procedure. Small bubbles of gas around the catheter in the anterior abdominal wall. This is nonspecific and could be due to instrumentation or less likely infection with gas-forming organism. The source of the bloody peritoneal fluid is not identified on this study. No evidence of metastasis Progress: Not septic. 2 units PRBC given on 06/25/20. Vancomycin and Cefepime IV day#2. IP antibiotics were not administered so far due to problems with peritoneal dialysis (bloody drain). Bloody peritoneal fluid with inability to continue CCPD. Recommendations/Plan: Transfer to higher level of care for surgery consultation, removal of PD catheter, placement of tunneled hemodialysis catheter. I [facility] the patient [facility] supervisor [employer] and hat production (Dr. Herrera) and surgeon (Dr. Linder). They accept the patient. She will need to switch to hemodialysis permanently due to frequent peritonitis and inadequacy. Avoid narcotic pain management. Acetaminophen PO/IV as initial medication. Status: Acute Qualifiers: Encounter type: subsequent encounter Qualified Code(s): T85.71XD - Infection and inflammatory reaction due to peritoneal dialysis catheter, subsequent encounter (2) Acute blood loss anemia: Status: Acute (3) End-stage renal disease on peritoneal dialysis: Status: Chronic (4) Anemia in ESRD (end-stage renal disease): Status: Chronic Time Spent With Patient Time: Total time spent is greater than 50% in coordination of care (as documented) at patient's floor/unit and/or counseling patient:
--- NOTE | 2020-06-25 21:18 | Transfer Summary ---
Discharge Provider Provider Patient information: Note initiated : 06/25/20 at 9:14 pm Service Date, if different from initiated Date: [] Patient: Hedy Pizarro a 64 y/o F admitted on 06/24/20 for abd pain. Transfer diagnosis * Acute peritonitis-PD catheter related. Ongoing management per nephrology. On antibiotic coverage * ESRD on PD , unable to perform PD due to catheter clogging. Will need HD catheter placed. Transferring to tertiary center [facility] for further management * Blood loss anemia secondary to blood in peritoneal dialysate- Status post PRBC transfusion. CT abdomen no acute process identified. Nephrology indicated surgical intervention/HD catheter placement due to nonfunctioning PD catheter (blood clogging) * History of HTN managed per nephrology on losartan/amlodipine Issues managed by hospitalist service * DM type II continue prandial insulin, glipizide on hold. On CCD * Anxiety disorder continue citalopram * Hyperlipidemia continue statin * History of chronic pain continue home dose hydrocodone Brief hospital course Ms. Pizarro is a 64 year old F with a history of ESRD on peritoneal dialysis/HTN/anxiety/DM type II/HLD. Patient lives with her son at [facility] and follows up at the [facility] clinic and [facility] nephrology. Her daughter Lesley is her primary aged or disabled carer. Over the last 4 days patient has noted increasing burning sensation abdominal discomfort. She tried to reach nephr ology clinic on Tuesday and left a message. Over the next couple of days her symptoms continue to progress with increasing lethargic burning sensation discomfort and loss of appetite. She presented today to the ER due to above. Initial work-up in the ER was consistent with acute peritonitis related to peritoneal dialysis. Patient was started on antibiotic coverage after nephrology was consulted. Subsequently hospitalist service was consulted for admission. White count 7.9, creatinine 12.9/BUN 101/potassium 3.4. Peritoneal fluid evaluation nucleated cells 7 6290% neutrophils, cultures pending. At the time of my evaluation patient is alert but very anxious. She is accompanied with her daughter Lesley. She is able to provide answer most of the questions and endorse history as above. She denies diarrhea, dysuria, headache, photophobia endorses to low-grade fever, malaise, loss of appetite and gradual loss of functional ability. She actually provides care for her disabled son which he has not been able to do so over the last 4 days. 06/25-patient complains of abdominal discomfort/burning sensation. Staff/dialysis nurse noted bloody dialysate peritoneal aspirate. Hemoglobin 6.8. 2 units PRBC ordered per nephrology. CT abdomen no acute process. On antibiotic coverage for peritonitis per nephrology. Dialysis and electrolyte management ongoing per nephrology. No other concerns per nursing staff. Patient seen in room. Appears fatigued lethargic. Patient later in the day complains of increased abdominal pain. Dialysis catheter clogged and draining bloody aspirate. Nephrology recommends transfer to tertiary center for surgical intervention/placement of HD catheter to continue dialysis. Nephrology discussed case with surgeon at tertiary center along with hospitalist and patient accepted for further care. Transfer via air ambulance Date of admission: 06/24/20 14:23 Discharge date: 06/25/20 Primary care physician: Noah Wadsworth Consults: 06/24/20 Consult to Physician [CONS] Stat Comment: Consulting Provider: Moris Calzada Reason For Exam: Physician to Consult Consult to Physician [CONS] Stat Comment: Consulting Provider: Eduin Fuentes Reason For Exam: Physician to Consult Discharge Meds Discharge Medications Home Medications cyanocobalamin (vitamin B-12) 2,500 mcg sublingual tablet 2,500 mcg SUBLINGUAL QDAY tab 09/30/14 [History Confirmed 06/24/20 Last Taken 06/23/20 08:00] anastrozole 1 mg PO DAILY 09/08/19 [History Confirmed 06/24/20 Last Taken 06/23/20 08:00] docusate sodium 100 mg PO PRN PRN 09/08/19 [History Confirmed 06/24/20 Last Taken 06/23/20 08:00] ergocalciferol (vitamin D2) 50,000 unit PO Q2W 09/17/19 [History Confirmed 06/24/20 Last Taken 06/20/20 08:00] glipizide 5 mg PO PRN PRN 09/17/19 [History Confirmed 06/24/20 Last Taken 09/17/19 06:00] hydrocodone 10 mg-acetaminophen 325 mg tablet 1 tab PO QID PRN tab 01/04/20 [History Confirmed 06/24/20 Last Taken Unknown] gentamicin 0.1 % topical cream 1 applic TOPICAL ONCE #15 g 01/23/20 [Rx Confirmed 06/24/20 Last Taken 06/23/20 09:00] losartan 100 mg tablet 100 mg PO DAILY #30 tab 01/23/20 [Rx Confirmed 06/24/20 Last Taken 06/23/20 08:00] furosemide 40 mg tablet 80 mg PO QAM #180 tab 05/29/20 [Rx Confirmed 06/24/20 Last Taken 06/23/20 08:00] rosuvastatin 5 mg tablet 5 mg PO HS #90 tab 05/29/20 [Rx Confirmed 06/24/20 Last Taken 06/23/20 21:00] B-complex with vitamin C [Nephro-Meme] 1 tab PO QDAY 06/24/20 [History Confirmed 06/24/20 Last Taken 06/23/20 08:00] amlodipine 5 mg PO DAILY 06/24/20 [History Confirmed 06/24/20 Last Taken 06/23/20 08:00] calcium acetate(phosphat bind) 667 mg PO PRN PRN 06/24/20 [History Confirmed 06/24/20 Last Taken Unknown] calcium acetate(phosphat bind) 667 mg PO TIDCC 06/24/20 [History Confirmed 06/24/20 Last Taken 06/23/20 21:00] citalopram 20 mg PO DAILY 06/24/20 [History Confirmed 06/24/20 Last Taken 06/23/20 08:00] magnesium 400 mg PO DAILY 06/24/20 [History Confirmed 06/24/20 Last Taken 06/23/20 08:00] omega-3 acid ethyl esters 1 cap PO BID 06/24/20 [History Confirmed 06/24/20 Last Taken 06/23/20 21:00] sevelamer carbonate [Renvela] 1,600 mg PO TID 06/24/20 [History Confirmed 06/24/20 Last Taken 06/23/20 17:00] sucroferric oxyhydroxide [Velphoro] 500 mg PO 1700 06/24/20 [History Confirmed 06/24/20 Last Taken 06/23/20 17:00] COURSE Hospital Course Hospital course: . Discharge diagnosis: ESRD Time Spent with Patient Time attestation: Total time spent providing and/or coordinating discharge services: EXAM Constitutional Vitals: Temp Pulse Resp BP Pulse Ox 98.0 F 74 21 114/97 94 06/25/20 20:20 06/25/20 19:25 06/25/20 19:25 06/25/20 20:20 06/25/20 19:25 Discharge Data Data Completed and Pending Labs on day of discharge: Labs from last 24 hours 06/25/20 06/25/20 06/25/20 12:02 06:00 05:59 WBC RBC Hgb Hct MCV MCH MCHC RDW Plt Count MPV Neut % (Auto) Lymph % (Auto) Gentry % (Auto) Eos % (Auto) Baso % (Auto) Lymph # (Auto) Gentry # (Auto) Eos # (Auto) Baso # (Auto) Absolute Neutrophils Sodium 135 Potassium 3.3 Chloride 92 L Carbon Dioxide 24 Anion Gap 19.0 H BUN 100 H* Creatinine 13.0 H* GFR Calculation 3 Glucose 152 H Uric Acid 7.0 Calcium 7.3 L Phosphorus 9.2 H* Magnesium 1.5 L Total Bilirubin 0.3 Direct Bilirubin < 0.2 GGT 54 H AST 13 ALT 13 Alkaline Phosphatase 169 H Lactate Dehydrogenase 133 L Total Protein 6.1 Albumin 2.6 L Globulin 3.5 Albumin/Globulin Ratio 0.7 L Triglycerides 81 Vancomycin Trough 13.7 Random Vancomycin < 4.0 06/25/20 05:59 WBC 7.0 RBC 2.38 L Hgb 6.8 L* Hct 20.9 L* MCV 87.8 MCH 28.6 MCHC 32.5 RDW 13.8 Plt Count 177 MPV 11.1 H Neut % (Auto) 78.0 Lymph % (Auto) 10.9 L Gentry % (Auto) 5.7 Eos % (Auto) 5.0 Baso % (Auto) 0.4 Lymph # (Auto) 0.77 L Gentry # (Auto) 0.40 Eos # (Auto) 0.35 Baso # (Auto) 0.03 Absolute Neutrophils 5.49 Sodium Potassium Chloride Carbon Dioxide Anion Gap BUN Creatinine GFR Calculation Glucose Uric Acid Calcium Phosphorus Magnesium Total Bilirubin Direct Bilirubin GGT AST ALT Alkaline Phosphatase Lactate Dehydrogenase Total Protein Albumin Globulin Albumin/Globulin Ratio Triglycerides Vancomycin Trough Random Vancomycin Preliminary micro results at discharge 06/24/20 11:51 Blood Culture - Preliminary Blood 06/24/20 11:45 Blood Culture - Preliminary Blood Discharge Plan Patient/Caregiver Discharge Instructions Activity: other Diet: Renal/Consistent Carbs Instructions: Diabetic Gastroparesis (DC), Diabetic Hyperglycemia (ED) Prescriptions: No Action hydrocodone-acetaminophen 10-325 mg tablet 1 tab PO QID PRN (Reason: Pain) RF: 0 gentamicin 0.1 % cream 1 applic TOPICAL ONCE Qty: 15 RF: 0 losartan 100 mg tablet 100 mg PO DAILY Qty: 30 RF: 1 rosuvastatin 5 mg tablet 5 mg PO HS Qty: 90 RF: 4 furosemide 40 mg tablet 80 mg PO QAM Qty: 180 RF: 4 cyanocobalamin (vitamin B-12) 2,500 mcg tablet, sublingual 2,500 mcg SUBLINGUAL QDAY RF: 0 anastrozole 1 MG tablet 1 mg PO DAILY RF: 0 docusate sodium 100 MG capsule 100 mg PO PRN PRN (Reason: Constipation) RF: 0 ergocalciferol (vitamin D2) 8,000 UNIT/ML drops 50,000 unit PO Q2W RF: 0 glipizide 2.5 MG tablet extended release 24hr 5 mg PO PRN PRN (Reason: Hyperglycemia) RF: 0 amlodipine 5 mg tablet 5 mg PO DAILY RF: 0 citalopram 20 mg tablet 20 mg PO DAILY RF: 0 omega-3 acid ethyl esters 1 gram capsule 1 cap PO BID RF: 0 calcium acetate(phosphat bind) 667 mg capsule 667 mg PO TIDCC RF: 0 calcium acetate(phosphat bind) 667 mg capsule 667 mg PO PRN PRN (Reason: With meals and snacks) RF: 0 magnesium 200 mg Tablet 400 mg PO DAILY RF: 0 B-complex with vitamin C [Nephro-Meme] Tablet 1 tab PO QDAY RF: 0 sevelamer carbonate [Renvela] 800 mg Tablet 1,600 mg PO TID RF: 0 Velphoro 500 mg tablet,chewable 500 mg PO 1700 RF: 0 Follow Up Plan Follow up with: Noah Wadsowrth MD [Primary Care Provider] - Patient Disposition: er [facility] Rehab Potential: Serious I certify that the patient requires SNF services: No Overall status at discharge: patient is not back to baseline Discharge Orders: Discharge Order (Routine); Ordered 06/25/20 Ordered By: Moris Calzada
== END 2020-06-25 22:20 | disposition short-term general hospital (02) | DRG 919 ==
LOC: ED 10:37 → ICU 14:23
PROVIDERS: ADMIT Internal Medicine; ATTEND Internal Medicine

== ENCOUNTER 2025-03-24 12:36 | Inpatient (IN) ==
[2025-03-24] MEDS: fentaNYL 100 MCG/2 ML VIAL IV ONE (12:45)
[2025-03-24] MEDS: HYDROmorphone 0.5 MG/0.5 ML SYRINGE IV ONE (13:29)
[2025-03-24 13:39] LABS: Basophils # (Auto) 0.01 K/mcL (0.00-0.30); Basophils % (Auto) 0.1 % (0.0-2.0); Eosinophils # (Auto) 0.02 K/mcL (0.00-0.70); Eosinophils % (Auto) 0.3 % (0.0-7.0); Hematocrit 27.4 % (34.1-44.9); Hemoglobin 8.9 g/dL (11.2-15.7); Lymphocytes # (Auto) 0.49 K/mcL (1.50-4.80); Lymphocytes % (Auto) 6.2 % (15.5-49.0); Mean Corpuscular HGB Conc 32.5 g/dL (31.0-36.0); Monocytes # (Auto) 0.52 K/mcL (0.10-0.90); Monocytes % (Auto) 6.6 % (1.0-12.0); Neutrophils % (Auto) 86.7 % (38.0-78.0); Platelet Count 144 K/mcL (140-440); RBC 2.78 M/mcL (3.59-5.38); WBC 7.9 K/mcL (4.5-11.0)
[2025-03-24 13:53] LABS: INR 1.0 (0.9-1.1); Prothrombin Time 14.6 sec (11.9-14.5)
[2025-03-24 14:11] LABS: ALT/SGPT 10 U/L (<40); AST/SGOT 21 U/L (<32); Albumin 3.6 gm/dL (3.2-5.2); Albumin/Globulin Ratio 0.9 (1.0-2.3); Alkaline Phosphatase 170 U/L (39-117); Anion Gap 13.0 (8.0-16.0); Bilirubin,Total 0.7 mg/dL (0.1-1.0); Blood Urea Nitrogen 40 mg/dL (8-23); Calcium 8.8 mg/dL (8.6-10.4); Carbon Dioxide 26 mmol/L (22-30); Chloride 94 mmol/L (96-108); Globulin 3.8 gm/dL (2.2-3.7); Glucose 121 mg/dL (70-105); Potassium 4.3 mmol/L (3.3-5.1); Sodium 133 mmol/L (133-145)
[2025-03-24] MEDS ORDERED: NALOXONE HCL 0.4 MG/ML VIAL IV PRN (15:40)
[2025-03-24] MEDS ORDERED: POLYETHYLENE GLYCOL 3350 17 GM PACKET PO PRN (16:26)
[2025-03-24] MEDS ORDERED: MELATONIN 3 MG TABLET PO PRN (16:26)
[2025-03-24] MEDS ORDERED: DOCUSATE SODIUM 100 MG CAPSULE PO PRN (16:26)
[2025-03-24] MEDS: HYDROmorphone 0.5 MG/0.5 ML SYRINGE IV PRN ×2 (16:40→19:46)
[2025-03-24] MEDS ORDERED: ACETAMINOPHEN 500 MG TABLET PO PRN (17:20)
[2025-03-24] MEDS: SEVELAMER 800 MG TABLET PO SCH (17:42)
[2025-03-24] MEDS: ACETAMINOPHEN 1,000 MG/100 ML BAG IV PRN (18:56)
[2025-03-24] MEDS: HEPARIN 5,000 UNIT/ML VIAL SQ SCH (21:10)
[2025-03-24] MEDS: ATORVASTATIN 10 MG TABLET PO SCH (21:11)
[2025-03-24] MEDS: DOCUSATE SODIUM 100 MG CAPSULE PO SCH (21:11)
[2025-03-24] MEDS: SENNOSIDES 1 TABLET PO SCH (21:11)
[2025-03-24] MEDS: FISH OIL 1,000 MG CAPSULE PO SCH (21:11)
[2025-03-24] MEDS: LOSARTAN 50 MG TABLET PO SCH (21:11)
[2025-03-24] MEDS: 0.9 % SODIUM CHLORIDE 10 ML SYRINGE IV SCH (21:11)
[2025-03-25 06:34] LABS: Basophils # (Auto) 0.04 K/mcL (0.00-0.30); Basophils % (Auto) 0.5 % (0.0-2.0); Eosinophils # (Auto) 0.16 K/mcL (0.00-0.70); Eosinophils % (Auto) 2.2 % (0.0-7.0); Hematocrit 25.1 % (34.1-44.9); Hemoglobin 8.0 g/dL (11.2-15.7); Lymphocytes # (Auto) 0.94 K/mcL (1.50-4.80); Lymphocytes % (Auto) 12.8 % (15.5-49.0); Mean Corpuscular HGB Conc 31.9 g/dL (31.0-36.0); Monocytes # (Auto) 0.76 K/mcL (0.10-0.90); Monocytes % (Auto) 10.4 % (1.0-12.0); Neutrophils % (Auto) 73.8 % (38.0-78.0); Platelet Count 125 K/mcL (140-440); RBC 2.47 M/mcL (3.59-5.38); WBC 7.3 K/mcL (4.5-11.0)
[2025-03-25 07:07] LABS: ALT/SGPT 8 U/L (<40); AST/SGOT 12 U/L (<32); Albumin 3.2 gm/dL (3.2-5.2); Albumin/Globulin Ratio 1.0 (1.0-2.3); Alkaline Phosphatase 130 U/L (39-117); Anion Gap 12.0 (8.0-16.0); Bilirubin,Direct 0.3 mg/dL (<0.3); Bilirubin,Total 0.5 mg/dL (0.1-1.0); Blood Urea Nitrogen 49 mg/dL (8-23); Calcium 8.6 mg/dL (8.6-10.4); Carbon Dioxide 26 mmol/L (22-30); Chloride 94 mmol/L (96-108); Globulin 3.2 gm/dL (2.2-3.7); Glucose 84 mg/dL (70-105); Phosphorous 6.0 mg/dL (2.5-4.5); Potassium 4.5 mmol/L (3.3-5.1); Sodium 132 mmol/L (133-145); Triglycerides 78 mg/dL (<150); Uric Acid 5.6 mg/dL (2.5-8.0)
[2025-03-25] MEDS: PANTOPRAZOLE 40 MG TABLET PO SCH (08:35)
[2025-03-25] MEDS: VITAMIN D3 25 MCG TABLET PO SCH (08:36)
[2025-03-25] MEDS: CITALOPRAM 20 MG TABLET PO SCH (09:24)
[2025-03-25] MEDS ORDERED: fentaNYL 100 MCG/2 ML VIAL ONE ×2 (14:51→19:09)
[2025-03-25] MEDS ORDERED: SUGAMMADEX SODIUM 200 MG/2 ML VIAL IV ONE (14:51)
[2025-03-25] MEDS ORDERED: PROPOFOL 200 MG/20 ML VIAL IV ONE (14:51)
[2025-03-25] MEDS ORDERED: ONDANSETRON 4 MG/2 ML VIAL ONE (14:55)
[2025-03-25] MEDS ORDERED: ROCURONIUM 10 MG/ML ML IV ONE ×2 (14:55→17:13)
[2025-03-25] MEDS ORDERED: GLYCOPYRROLATE 0.2 MG/ML VIAL IV ONE ×2 (14:55→17:13)
[2025-03-25] MEDS ORDERED: FAMOTIDINE/PF 20 MG/2 ML VIAL IV ONE (16:51)
[2025-03-25] MEDS ORDERED: TRANEXAMIC ACID 1,000 MG/10 ML VIAL ONE (16:52)
[2025-03-25] MEDS ORDERED: ePHEDrine 50 MG/5 ML SYRINGE (ANEST) IV ONE (16:55)
[2025-03-25] MEDS ORDERED: HYDROmorphone 0.5 MG/0.5 ML SYRINGE IV PRN ×2 (17:07→18:29)
[2025-03-25] MEDS ORDERED: ONDANSETRON 4 MG/2 ML VIAL IV PRN (17:07)
[2025-03-25] MEDS ORDERED: IPRATROPIUM/ALBUTEROL 3 ML AMPUL.NEB NEB PRN (17:07)
[2025-03-25] MEDS ORDERED: PHENYLephrine 1 MG/10 ML SYRINGE (ANEST) ONE (17:15)
[2025-03-25] MEDS ORDERED: BENZOCAINE/MENTHOL 1 LOZENGE PO PRN ×2 (17:17→18:29)
[2025-03-25] MEDS ORDERED: ROPIVACAINE HCL/PF 30 ML VIAL IJ ONE (17:44)
[2025-03-25] MEDS ORDERED: fentaNYL 100 MCG/2 ML VIAL IV PRN (18:29)
[2025-03-25] MEDS ORDERED: HYDROmorphone 0.5 MG/0.5 ML SYRINGE ONE (19:11)
[2025-03-25] MEDS: IPRATROPIUM/ALBUTEROL 3 ML AMPUL.NEB NEB PRN (19:18)
[2025-03-25] MEDS: RACEPINEPHRINE 0.5 ML AMPUL.NEB NEB ONE (19:41)
[2025-03-25] MEDS ORDERED: DEXAMETHASONE 10 MG/ML VIAL ONE (19:48)
[2025-03-25] MEDS: 0.9 % SODIUM CHLORIDE 10 ML SYRINGE IV SCH (22:15)
[2025-03-25] MEDS: IPRATROPIUM/ALBUTEROL 3 ML AMPUL.NEB NEB ONE (22:37)
[2025-03-26 06:01] LABS: Basophils # (Auto) 0.02 K/mcL (0.00-0.30); Basophils % (Auto) 0.2 % (0.0-2.0); Eosinophils # (Auto) 0 K/mcL (0.00-0.70); Eosinophils % (Auto) 0 % (0.0-7.0); Hematocrit 24.8 % (34.1-44.9); Hemoglobin 7.6 g/dL (11.2-15.7); Lymphocytes # (Auto) 0.30 K/mcL (1.50-4.80); Lymphocytes % (Auto) 3.7 % (15.5-49.0); Mean Corpuscular HGB Conc 30.6 g/dL (31.0-36.0); Monocytes # (Auto) 0.25 K/mcL (0.10-0.90); Monocytes % (Auto) 3.1 % (1.0-12.0); Neutrophils % (Auto) 92.9 % (38.0-78.0); Platelet Count 147 K/mcL (140-440); RBC 2.34 M/mcL (3.59-5.38); WBC 8.2 K/mcL (4.5-11.0)
[2025-03-26 06:12] LABS: ALT/SGPT 28 U/L (<40); AST/SGOT 57 U/L (<32); Albumin 3.2 gm/dL (3.2-5.2); Albumin/Globulin Ratio 0.9 (1.0-2.3); Alkaline Phosphatase 127 U/L (39-117); Anion Gap 15.0 (8.0-16.0); Bilirubin,Direct 0.2 mg/dL (<0.3); Bilirubin,Total 0.4 mg/dL (0.1-1.0); Blood Urea Nitrogen 27 mg/dL (8-23); Calcium 8.3 mg/dL (8.6-10.4); Carbon Dioxide 25 mmol/L (22-30); Chloride 92 mmol/L (96-108); Globulin 3.5 gm/dL (2.2-3.7); Glucose 218 mg/dL (70-105); Phosphorous 7.4 mg/dL (2.5-4.5); Potassium 5.1 mmol/L (3.3-5.1); Sodium 132 mmol/L (133-145); Triglycerides 92 mg/dL (<150); Uric Acid 4.2 mg/dL (2.5-8.0)
[2025-03-26] MEDS: CALCIUM ACETATE 667 MG TABLET PO SCH (07:45)
[2025-03-26 17:21] LABS: Hematocrit 22.8 % (34.1-44.9); Hemoglobin 7.2 g/dL (11.2-15.7)
[2025-03-26] MEDS: ONDANSETRON 4 MG/2 ML VIAL IV PRN (19:06)
[2025-03-27 06:58] LABS: ALT/SGPT 13 U/L (<40); AST/SGOT 35 U/L (<32); Albumin 3.1 gm/dL (3.2-5.2); Albumin/Globulin Ratio 1.0 (1.0-2.3); Alkaline Phosphatase 116 U/L (39-117); Anion Gap 13.0 (8.0-16.0); Basophils # (Auto) 0.01 K/mcL (0.00-0.30); Basophils % (Auto) 0.3 % (0.0-2.0); Bilirubin,Direct < 0.2 mg/dL (0-0.3); Bilirubin,Total 0.3 mg/dL (0.1-1.0); Blood Urea Nitrogen 46 mg/dL (8-23); Calcium 8.3 mg/dL (8.6-10.4); Carbon Dioxide 25 mmol/L (22-30); Chloride 88 mmol/L (96-108); Eosinophils # (Auto) 0.03 K/mcL (0.00-0.70); Eosinophils % (Auto) 0.8 % (0.0-7.0); Globulin 3.2 gm/dL (2.2-3.7); Glucose 171 mg/dL (70-105); Hematocrit 21.2 % (34.1-44.9); Hemoglobin 6.8 g/dL (11.2-15.7); Lymphocytes # (Auto) 0.28 K/mcL (1.50-4.80); Lymphocytes % (Auto) 7.0 % (15.5-49.0); Mean Corpuscular HGB Conc 32.1 g/dL (31.0-36.0); Monocytes # (Auto) 0.43 K/mcL (0.10-0.90); Monocytes % (Auto) 10.8 % (1.0-12.0); Neutrophils % (Auto) 80.8 % (38.0-78.0); Phosphorous 5.2 mg/dL (2.5-4.5); Platelet Count 162 K/mcL (140-440); Potassium 4.9 mmol/L (3.3-5.1); RBC 2.10 M/mcL (3.59-5.38); Sodium 126 mmol/L (133-145); Triglycerides 90 mg/dL (<150); Uric Acid 6.4 mg/dL (2.5-8.0); WBC 4.0 K/mcL (4.5-11.0)
[2025-03-27 21:21] LABS: Hematocrit 25.6 % (34.1-44.9); Hemoglobin 8.4 g/dL (11.2-15.7)
[2025-03-28 04:50] VITALS: O2SAT 100
[2025-03-28 06:49] LABS: Basophils # (Auto) 0.02 K/mcL (0.00-0.30); Basophils % (Auto) 0.3 % (0.0-2.0); Eosinophils # (Auto) 0.11 K/mcL (0.00-0.70); Eosinophils % (Auto) 1.7 % (0.0-7.0); Hematocrit 26.4 % (34.1-44.9); Hemoglobin 8.7 g/dL (11.2-15.7); Lymphocytes # (Auto) 0.46 K/mcL (1.50-4.80); Lymphocytes % (Auto) 7.2 % (15.5-49.0); Mean Corpuscular HGB Conc 33.0 g/dL (31.0-36.0); Monocytes # (Auto) 0.68 K/mcL (0.10-0.90); Monocytes % (Auto) 10.6 % (1.0-12.0); Neutrophils % (Auto) 79.9 % (38.0-78.0); Platelet Count 164 K/mcL (140-440); RBC 2.64 M/mcL (3.59-5.38); WBC 6.4 K/mcL (4.5-11.0)
[2025-03-28 06:53] LABS: ALT/SGPT 7 U/L (<40); AST/SGOT 27 U/L (<32); Albumin 3.1 gm/dL (3.2-5.2); Albumin/Globulin Ratio 0.9 (1.0-2.3); Alkaline Phosphatase 132 U/L (39-117); Anion Gap 11.0 (8.0-16.0); Bilirubin,Direct 0.4 mg/dL (<0.3); Bilirubin,Total 0.6 mg/dL (0.1-1.0); Blood Urea Nitrogen 22 mg/dL (8-23); Calcium 8.5 mg/dL (8.6-10.4); Carbon Dioxide 28 mmol/L (22-30); Chloride 92 mmol/L (96-108); Globulin 3.4 gm/dL (2.2-3.7); Glucose 123 mg/dL (70-105); Phosphorous 2.8 mg/dL (2.5-4.5); Potassium 4.3 mmol/L (3.3-5.1); Sodium 131 mmol/L (133-145); Triglycerides 84 mg/dL (<150); Uric Acid 3.0 mg/dL (2.5-8.0)
[2025-03-28] MEDS: LOSARTAN 50 MG TABLET PO ONE (08:07)
[2025-03-28 11:42] VITALS: TEMP 98.1
[2025-03-29] MEDS ORDERED: LOSARTAN 50 MG TABLET PO SCH (21:00)
== END 2025-03-28 14:10 | DRG 956 ==
LOC: ED 12:36 → MEDSUR 16:26
PROVIDERS: ADMIT Student in an Organized Health Care Education/Training Program; ATTEND Student in an Organized Health Care Education/Training Program